=== PATIENT | male | born 1975 | race Caucasian/White ===

== ENCOUNTER 2016-12-01 16:43 | Inpatient (IN) ==
[2016-12-01] MEDS ORDERED: Nitroglycerin 0.4 MG TAB.SUBL SL ONE (16:52)
[2016-12-01] MEDS: Nitroglycerin 0.4 MG TAB.SUBL SL PRN ×3 (16:55→17:15)
--- NOTE | 2016-12-01 17:02 | Emergency Department Note ---
Disposition Clinical Impression: Chest pain Qualifiers: Chest pain type: unspecified Qualified Code(s): R07.9 - Chest pain, unspecified Disposition: Admitted As Inpatient Condition: Good Time of Disposition: 19:00 Chest Pain HPI - General Chief Complaint: ED Chest Pain Stated Complaint: chest pain Time Seen by Provider: 12/01/16 16:48 Source: patient, EMS Mode of arrival: EMS Limitations: no limitations Vital Signs Reviewed: Yes Nursing Notes Reviewed: Yes - History of Present Illness HPI Narrative: 41-year-old male history of pack per day smoker, hypertension presents to the ED via EMS for chest pain. Patient was seen and evaluated at urgent care after experiencing tight chest pain midsternum around 1545 while driving in a car from [place]. Reports diaphoresis and some indigestion denies any vomiting. Reports pain that seems to radiate up the neck down the left arm with tingling in the left hand. This recent stress test 5 years ago without abnormality after treadmill and then drug. He admits to noncompliance with his hypertensive medication. No family cardiac ischemic disease. Patient was given 324 mg aspirin at urgent care. He continues to have chest pain at this time. He is hypertensive with good bilateral radial pulses. Concerning for dissection CTA of the chess ordered. Chest pain workup initiated. Nitro trial ordered. Review for EKG performed at urgent care shows some T wave inversion and AVL. Severity scale (1-10): 6 - Related Data Home Medications Medication Instructions Recorded Confirmed Amlodipine Besylate 10 mg PO DAILY 12/01/16 12/01/16 Allergies Allergy/AdvReac Type Severity Reaction Status Date / Time No Known Allergies Allergy Verified 06/14/15 11:06 All systems ED: reviewed and negative except as stated. Review of Systems: As Per HPI Constitutional: Denies: fever, chills Eyes: Denies: vision change Cardiovascular: Reports: chest pain. Denies: palpitations, dyspnea on exertion Respiratory: Reports: dyspnea. Denies: cough Gastrointestinal: Denies: abdominal pain, nausea, vomiting Genitourinary: Denies: urgency, dysuria Musculoskeletal: Denies: back pain, neck pain Integumentary: Denies: rash, abrasion Neurological: Denies: headache, weakness Chest Pain PMH - Past Medical History Medical history: Reports: hypertension Psychiatric history: Reports: no psych history Prior Cardiac Testing/Procedures: Echocardiogram - Social History Smoking Status: Current every day smoker Alcohol use: Reports: none Drug use: Reports: none Physical Exam - General Limitations: no limitations General appearance: alert, in no apparent distress - Head Head exam: atraumatic, normocephalic, normal inspection - Eye Eye exam: Present: normal appearance, PERRL, EOMI - ENT ENT exam: normal exam, normal oropharynx, mucous membranes moist - Neck Neck exam: Present: normal inspection, full ROM, trachea midline - Chest Chest inspection: Present: normal inspection, symmetric chest wall rise. Absent : tenderness - Respiratory Respiratory exam: Present: normal lung sounds bilaterally. Absent: respiratory distress, wheezes - Cardiovascular Cardiovascular exam: Present: regular rate, normal rhythm, normal heart sounds - Expanded Cardiovascular Exam Peripheral pulses: 2+: radial (R), radial (L) - Abdominal Exam Abdominal exam: Present: soft, Non-Tender, normal bowel sounds. Absent: tenderness, distention, guarding, rebound, rigidity - Extremities Exam Extremities exam: Present: normal inspection, full ROM, normal capillary refill. Absent: tenderness, pedal edema, calf tenderness - Back Exam Back exam: Present: normal inspection, full ROM. Absent: tenderness - Neurological Exam Neurological exam: Present: alert, oriented X3, normal gait - Psychiatric Psychiatric exam: Present: normal affect, normal mood - Skin Skin exam: Present: warm, dry, intact, normal color Course - Reevaluation(s) Reevaluation #1: On initial EKG from urgent care showed isolated avL T wave inversion. At that time he was actively having chest pain. Patient was given Nitro trial with pain relief from 9 to 2. He was initially very hypertensive blood pressure greater than 200. On recheck it was 180. Good symmetrical radial pulses bilaterally. Concerning for aortic dissection. CTA of the chess was performed did not show dissection. Serial EKG does not show any dynamic changes. Troponin 0.01. Labs are otherwise unremarkable. Given his previous EKG changes would heavily recommend heart catheterization. HEART score of 4. Impression is chest pain rule out acute coronary syndrome. Patients in agreement with this plan. He is currently pain-free after Nitro drip. He is currently hemodynamically stable. Blood pressure has come down tremendously 135 /95. Time: 18:54 - Consultations Consultation #1: Spoke with on-call hospitalist natty Brock to admit for chest pain R/O ACS. Express my concern for ischemic changes in original EKG. Strongly recommended heart catheterization during his hospitalization here. No further orders at this time Time: 19:13 Vital Signs Temperature 97.7 F 12/01/16 16:44 Pulse Rate 74 12/01/16 16:44 Respiratory Rate 18 12/01/16 16:44 Blood Pressure 221/133 12/01/16 16:44 O2 Sat by Pulse Oximetry 97 12/01/16 16:44 Temperature 97.7 F 12/01/16 16:44 Pulse Rate 75 12/01/16 18:10 Respiratory Rate 18 12/01/16 18:10 Blood Pressure 135/93 12/01/16 18:10 O2 Sat by Pulse Oximetry 98 12/01/16 18:10 Oxygen Delivery Oxygen Delivery Room Air Chest Pain - Medical Records Medical records reviewed: Yes I reviewed the patient's medical records. - Lab Data Lab results reviewed: Yes I reviewed the patient's lab results. Result diagrams: 12/01/16 17:04 12/01/16 17:04 Lab Results 12/01/16 12/01/16 12/01/16 Range/Units 17:04 17:04 17:04 WBC 8.3 (4.3-11.1) K/mcL RBC 5.16 (4.19-5.50) M/mcL Hgb 15.3 (12.9-16.9) g/dL Hct 44.8 (37.5-50.1) % MCV 86.8 (83.0-100.0) fL MCH 29.7 (28.0-33.3) pg MCHC 34.2 (31.6-35.5) g/dL RDW 11.7 (11.5-14.5) % Plt Count 185 (140-400) K/mcL MPV 10.7 (9.4-12.4) fL Immature Gran % 0.4 (0-4) % Seg Neutrophils % 64.1 % Lymphocytes % 26.5 % Monocytes % 5.6 % Eosinophils % 2.8 % Basophils % 0.6 % Neutrophils # 5.3 (1.6-8.9) K/mcL Lymphocytes # 2.2 (0.6-4.6) K/mcL Monocytes # 0.5 (0.0-1.3) K/mcL Eosinophils # 0.2 (0.0-0.6) K/mcL Basophils # 0.1 (0.0-0.2) K/mcL Immature Plt Fraction 6.4 H (1.1-6.1) % Sodium 140 (136-145) mEq/L Potassium 3.2 L (3.5-4.5) mEq/L Chloride 104 (98-109) mEq/L Carbon Dioxide 27 (19-29) mEq/L BUN 9 (8-26) mg/dL Creatinine 0.98 (0.72-1.25) mg/dL Est GFR ( Amer) > 60 (> 60) Est GFR (Non-Af Amer) > 60 (> 60) BUN/Creatinine Ratio 9 (6-26) Glucose 101 H (70-99) mg/dL Calculated Osmolality 289 (280-300) Calcium 9.2 (8.6-10.8) mg/dL Troponin I 0.01 (0-0.03) ng/mL - Radiology Data Radiology results reviewed: Yes I reviewed the patient's radiology results. Chest CTA 12/01/16 16:58 IMPRESSION: 1. No evidence of thoracic or abdominal aortic aneurysm or dissection. 2. Chronic lung parenchymal changes, greatest within the right lower lobe, presumably secondary to remote infection or inflammation. 3. Small hiatal hernia. 4. Fatty liver infiltration. D/ / Charlie Delcid MD / Charlie Delcid MD Interpreting Provider: Charlie Delcid MD Abdomen/Pelvis CTA 12/01/16 17:06 IMPRESSION: 1. No evidence of thoracic or abdominal aortic aneurysm or dissection. 2. Chronic lung parenchymal changes, greatest within the right lower lobe, presumably secondary to remote infection or inflammation. 3. Small hiatal hernia. 4. Fatty liver infiltration. D/ / Charlie Delcid MD / Charlie Delcid MD Interpreting Provider: Charlie Delcid MD - EKG Data EKG attestation: Yes I reviewed and interpreted this EKG. EKG results narrative: EKG performed 1646 normal sinus rhythm 3 bpm, good R-R wave progression, normal axis, there are no ST elevations or depressions, no T-wave inversions. Intervals are within normal limits CT interval 158 QRS 108 QT QTC 385 425. Compared to old EKG performed 06/14/2015 shows consistent findings. No acute ischemic changes. Repeat cereal EKGs perform at 1725 and 1814 no dynamic changes, no ST elevations or T wave inversion. EKG performed at the urgent care shows sinus rhythm [address] elevation in inferior leads with isolated T wave inversion and ST depression in aVL. Heart Score - Score History: Moderately Suspicious EKG: Non Specific repolarisation Disturbance Age: Less than 45 Risk Factors: Equal/Greater than 3 risk factor or history of atherosclerotic disease Troponin: Less than normal limit HEART Score Total: 4 Attestation Statement - Attestation Attestation: I examined this patient and my medical decision-making was reviewed with the Resident Physician. I agree with the documented findings, disposition and treatment plan as described except to the extent set forth below. Sudden onset severe chest pain radiating to his back and jaw with associated diaphoresis, no history of similar. EKG at urgent care was concerning, with borderline inferior ST elevations and ST depression and T-wave inversion in aVL. On arrival here, EKG had normalized, his pain had decreased from a 9 to a 5 on a 10 scale. Serial EKGs remained normal, pain gradually decreased with sublingual nitroglycerin followed by intravenous nitroglycerin, currently pain- free at 40 mics per minute. Troponin 0.01, CT was done to rule out dissection given his sudden severe pain radiating to the back associated with diaphoresis and severe hypertension, this was negative as well. My suspicion for ischemia is high. Admission for cardiac evaluation and consideration of cardiac catheterization is warranted. Critical care time: I was directly and primarily involved in the care of this patient for 35 minutes excluding procedures.
[2016-12-01 17:09] LABS: Basophils # 0.1 K/mcL (0.0-0.2); Basophils % 0.6 %; Eosinophils # 0.2 K/mcL (0.0-0.6); Eosinophils % 2.8 %; Hematocrit 44.8 % (37.5-50.1); Hemoglobin 15.3 g/dL (12.9-16.9); Immature Granulocytes % 0.4 % (0-4); Immature Platelets 6.4 % (1.1-6.1); Lymphocytes # 2.2 K/mcL (0.6-4.6); Lymphocytes % 26.5 %; Mean Corpuscular HGB Conc 34.2 g/dL (31.6-35.5); Mean Corpuscular Hemoglobin 29.7 pg (28.0-33.3); Mean Corpuscular Volume 86.8 fL (83.0-100.0); Mean Platelet Volume 10.7 fL (9.4-12.4); Monocytes # 0.5 K/mcL (0.0-1.3); Monocytes % 5.6 %; Neutrophils # 5.3 K/mcL (1.6-8.9); Platelet Count 185 K/mcL (140-400); Red Blood Count 5.16 M/mcL (4.19-5.50); Red Cell Distribution Width 11.7 % (11.5-14.5); Segmented Neutrophils % 64.1 %
[2016-12-01 17:24] LABS: BUN/Creatinine Ratio 9 (6-26); Blood Urea Nitrogen 9 mg/dL (8-26); Calcium 9.2 mg/dL (8.6-10.8); Carbon Dioxide 27 mEq/L (19-29); Chloride 104 mEq/L (98-109); Glucose 101 mg/dL (70-99); Osmolality,Calculated 289 (280-300); Potassium 3.2 mEq/L (3.5-4.5); Sodium 140 mEq/L (136-145); eGFR For African Americans > 60 (> 60); eGFR For Non-African Americans > 60 (> 60)
[2016-12-01] MEDS ORDERED: Nitroglycerin 25 MG/250 ML INFUS..BTL IVC ONE (17:41)
[2016-12-01] MEDS ORDERED: Naloxone 0.4 MG/ML INJ IVP PRN (21:08)
[2016-12-01] MEDS ORDERED: *HR* Heparin 5,000 UNIT/ML VIAL IVP PRN ×2 (23:45)
[2016-12-01] MEDS ORDERED: Heparin 25,000 UNIT/500 ML D5W 25,000 UNIT/500 ML MLS IVC SCH (23:45)
[2016-12-01] MEDS ORDERED: *HR* Heparin 5,000 UNIT/ML VIAL IVP ONE (23:45)
--- NOTE | 2016-12-01 23:49 | Emergency Department Note ---
START Narrative - START START: In the process of the patient name is the hospital his troponin became elevated at 0.83. I contacted the hospitalist Dr. murphy. We reviewed the presentation symptoms and nitroglycerin drip titration and is been going on over the last hour and a half. He asked if we could contact the forest resource specialist to make sure they are comfortable with admission and whether or not they wanted a heparin drip started this point. Consultation was placed out to Dr. sanchez. We reviewed the presentation symptoms medical history as well as intervention performed. Recommendation was heparinizing the patient and admitting for serial exam and then possibly catheterization tomorrow. I want to discuss this with the patient the bedside. He is still 100% chest pain-free at this time. He has no other symptoms or issues noted. Heparin order for the for completed. I informed hospitalist of my conversation with the forest resource specialist. Otherwise the patient is in no distress. Chest x-ray reviewed showing no widening of the mediastinum. Patient has not had any dark melenic colored stool no concern for GI bleed.
--- NOTE | 2016-12-02 00:03 | Internal Med History&Physical ---
<Ranjan Alejandre - Last Filed: 12/01/16 23:58> Date of Encounter: 12/01/16 Time of Encounter: 11:00 Assessment and Plan (1) Chest pain Current visit: Yes Status: Acute New onset of chest pain this afternoon radiating to bilateral shoulders left arm and neck and diaphoresis Hypertensive upon arrival to ED. Was given sublingual nitroglycerin and 4 baby aspirin. EKG in the ED and sinus rhythm. Troponin at time of admission was 0.01. Last stress test was 5 years ago without abnormality. She admits to being noncompliant with new hypertensive medications. I will continue to trend troponins as second troponin resulted in increase at 0.83. Placed on continuous telemetry Placed on oxygen 2 L titrated to maintain SPO2 greater than 92% Continuous SPO2 monitoring CBC, lipids and CMP in the morning nothing by mouth after midnight no caffeine or beta blockers Echo scheduled tomorrow Exercise stress scheduled tomorrow Patient started on heparin drip and titrate based on results of PTT Insert resuming nitro drip if patient develops active chest pain Additional hypokalemic and given 40 meq of potassium one time dose Qualifiers: Chest pain type: unspecified Qualified Code(s): R07.9 - Chest pain, unspecified (2) HTN (hypertension) Current visit: Yes Status: Acute Hypertensive on arrival in the ED as well as chest pain. Patient placed on nitro drip. Hemodynamically stable and chest pain subsided. Continue to monitor hemodynamic status and resume home norvasc medication tomorrow Qualifiers: Hypertension type: essential hypertension Qualified Code(s): I10 - Essential (primary) hypertension (3) DVT prophylaxis Current visit: Yes Status: Acute Patient on heparin drip Internal Medicine - H&P: HPI Chief complaint: Midsternal Chest pain Admitted From: Home Plans for Post Hospital Care: Home History of present illness: Mr. Mcintyre is a 41 year old male with family past medical history being hypertension. Presented to [facility] on 12-01-16 with chest pain rule out ND. Information obtained from chart review and patient report. He reports driving home from work and suddenly experiencing burning midsternal chest pain radiating to both shoulders down left arm to left hand and off throughout his neck admits to diaphoresis and palpitations. 2 himself to urgent care. The urgent care team obtained an EKG which showed sinus rhythm. However he was instructed to come to [facility] emergency department for further workup. Upon arrival to [facility] the patient received 1 sublingual nitroglycerin and 4 baby aspirin. Pain at time of arrival 5-6 health scale of 1-10. Pain at time of exam reported as 0. Patient comfortable and in no distress. Troponins in the ED initially was negative at 0.01. Patient is obese, sedentary, and has a smoking history. He is being admitted at this time for further workup and evaluation. Past Med Surg Social Fam HX - Past Medical History Medical history: hypertension Psychiatric history: no psych history - Social History Smoking Status: Current every day smoker Smokeless Tobacco Status: No Alcohol use: none Drug use: none Internal Medicine - H&P: Meds Amlodipine Besylate 10 mg PO DAILY 12/01/16 [History] Allergies No Known Allergies Allergy (Verified 06/14/15 11:06) All Systems PM: A 10-system review of systems was performed and is negative for pertinent findings except as documented above in the HPI. - Constitutional Constitutional: no chills, no fever(s), no night sweats - EENT Eyes: no change in vision, no discharge, no pain, no photophobia Ears: no ear discharge, no ear pain, no tinnitus Nose, mouth and throat: no dysphagia, no nasal discharge, no neck pain, no sore throat - Cardiovascular Cardiovascular ROS IM: chest pain (Re: Radiating chest pain bilateral shoulders left arm and neck), diaphoresis, no dyspnea, no edema, no irregular heart rhythm , no lightheadedness, no palpitations, no syncope - Respiratory Respiratory: no cough, no dyspnea, no wheezing, no excessive phlegm production - Gastrointestinal Gastrointestinal: no abdominal pain, no diarrhea, no hematemesis, no hematochezia, no melena, no nausea, no vomiting - Musculoskeletal Musculoskeletal ROS IM: no numbness, no tingling - Integumentary Integumentary IM: no rash, no unusual bruising - Neurological Neurological ROS: no confusion, no convulsions, no dizziness, no focal weakness , no numbness, no tingling, no tremor(s) - Hematologic/Lymphatic Hematologic/Lymphatic: no easy bruising - Constitutional Vitals: Temp Pulse Resp BP Pulse Ox 97.7 F 70 18 132/90 98 12/01/16 16:44 12/01/16 22:52 12/01/16 23:42 12/01/16 23:42 12/01/16 22:52 General appearance: Present: A&O X 3, pleasant, no acute distress, obese, answers questions appropriately - Head Head exam: Present: atraumatic, normocephalic - Eye Eye exam: Present: PERRL, conjuntiva pink, sclera anicteric Pupils: Present: PERRL - Neck Neck exam general surgery: Present: supple, trachea midline. Absent: lymphadenopathy - Respiratory Respiratory exam: Present: CTAB. Absent: accessory muscle use, rales, rhonchi, wheezes - Cardiovascular Cardiovascular exam: Present: RRR, +S1, +S2. Absent: diastolic murmur, gallop, rubs, systolic murmur - GI/Abdominal GI/Abdominal exam: Present: normal bowel sounds, soft, no peritoneal signs. Absent: distended, tenderness - Extremities Exam Extremities exam: Present: warm, radial pulses palpable and symmetrical. Absent : calf tenderness, cyanotic, pedal edema - Neurological Exam Neurological exam: Present: CN II-XII intact, oriented X3, no focal deficits. Absent: pronater drift, facial droop, speech deficit - Skin Skin exam: Present: dry, intact. Absent: cyanosis, diaphoretic Internal Med - H&P Results - Labs CBC & Chem 7: 12/01/16 17:04 12/01/16 17:04 Labs: Cardiac Enzymes 12/01/16 Range/Units 22:39 Troponin I 0.83 H* (0-0.03) ng/mL - EKG Data EKG shows normal: sinus rhythm (Initial EKG indicated sinus rhythm) Rate: normal - Diagnostic Studies CT scan - chest Additional comments: CT abdomen and pelvis rule out dissection. CT found no evidence of abdominal or thoracic dissection. <Jt Duggan - Last Filed: 12/02/16 03:51> Date of Encounter: 12/02/16 Internal Medicine - H&P: HPI History of present illness: Mr. Mcintyre is a 41 year old male All Systems PM: A 10-system review of systems was performed and is negative for pertinent findings except as documented above in the HPI. - Constitutional Vitals: Temp Pulse Resp BP Pulse Ox 97.7 F 63 16 143/99 95 12/02/16 00:19 12/02/16 00:50 12/02/16 00:19 12/02/16 00:50 12/02/16 00:19 Internal Med - H&P Results - Labs CBC & Chem 7: 12/02/16 00:36 12/01/16 17:04 Labs: Short CBC 12/02/16 Range/Units 00:36 WBC 8.8 (4.3-11.1) K/mcL Hgb 14.5 (12.9-16.9) g/dL Hct 41.6 (37.5-50.1) % Plt Count 171 (140-400) K/mcL Cardiac Enzymes 12/01/16 Range/Units 22:39 Troponin I 0.83 H* (0-0.03) ng/mL - Attending Attestation I independently obtained history and examined this patient and my medical decision-making was reviewed with the nurse practitioner, Ranjan Alejandre. I agree with the documented findings, disposition and treatment plan as described. My findings are summarized below: Please see event note dictated for the date of service 12/01/2016
--- NOTE | 2016-12-02 00:08 | Event Note ---
Date of Encounter: 12/01/16 Time of Encounter: 22:00 Date of service for this encounter was 12/01/2016 I independently obtained history and examined this patient and my medical decision-making was reviewed with the nurse practitioner, Ranjan Alejandre. I agree with the documented findings, disposition and treatment plan as described. My findings are summarized below: Patient presented to the hospital with sudden onset substernal chest pain at rest, while driving. His chest pain lasted for over 15 minutes and was eventually resolved with sublingual nitroglycerin. Pain recurred thereafter and he was started on nitro drip and currently is chest pain-free. On exam he is in no acute distress, heart is regular with normal S1-S2, lungs are clear. EKG reveals normal sinus rhythm [address] or T-wave changes, personally reviewed Assessment: Typical chest pain secondary to unstable angina Versus NSTEMI. Plan: Transient troponin, patient received aspirin, start beta annmarie and statin, consult cardiology. I have initially ordered a stress test however troponin came back positive and he ruled in and therefore will discontinue the stress test and plan for cardiac catheterization in a.m. High risk due to acute VT and IV nitro drip requiring close vital sign monitoring.
[2016-12-02 00:57] LABS: Hematocrit 41.6 % (37.5-50.1); Hemoglobin 14.5 g/dL (12.9-16.9); Immature Platelets 6.2 % (1.1-6.1); Mean Corpuscular HGB Conc 34.9 g/dL (31.6-35.5); Mean Corpuscular Hemoglobin 30.6 pg (28.0-33.3); Mean Corpuscular Volume 87.8 fL (83.0-100.0); Mean Platelet Volume 11.4 fL (9.4-12.4); Red Blood Count 4.74 M/mcL (4.19-5.50); Red Cell Distribution Width 11.9 % (11.5-14.5)
[2016-12-02 01:02] LABS: INR 1.1; Prothrombin Time 12.3 Seconds (9.4-12.1)
[2016-12-02 01:04] LABS: Activated Partial Thrombo Time 27.3 Seconds (26.0-36.0)
--- NOTE | 2016-12-02 04:03 | Event Note ---
Date of Encounter: 12/02/16 Time of Encounter: 23:00 Patient continued to have chest pain and his troponin increased to 0.89. At this point these findings are consistent with acute non-ST elevation SC. We will continue with nitroglycerin drip, start heparin drip. The patient requires inpatient admission for more than 2 midnights. Risk if not hospitalized include cardiogenic shock and further morbidity as well as chronic heart failure.
[2016-12-02 05:35] LABS: Amphetamine Screen,Urine Negative ng/mL (Cutoff=1000); Barbiturate Screen,Urine Negative ng/mL (Cutoff=200); Benzodiazepines Screen,Urine Negative ng/mL (Cutoff=200); Cannabinoid Screen,Urine Negative ng/mL (Cutoff = 50); Cocaine Screen,Urine Negative ng/mL (Cutoff= 300); Opiate Screen,Urine Negative ng/mL (Cutoff=300); Phencyclidine Screen,Urine Negative ng/mL (Cutoff=25)
[2016-12-02] MEDS ORDERED: *HR* Enoxaparin 40 MG/0.4 ML SYRINGE SQ SCH (06:00)
[2016-12-02 06:02] LABS: Basophils # 0.1 K/mcL (0.0-0.2); Basophils % 0.6 %; Eosinophils # 0.2 K/mcL (0.0-0.6); Eosinophils % 2.5 %; Hematocrit 41.2 % (37.5-50.1); Hemoglobin 14.2 g/dL (12.9-16.9); Immature Granulocytes % 0.3 % (0-4); Lymphocytes # 2.5 K/mcL (0.6-4.6); Lymphocytes % 27.8 %; Mean Corpuscular HGB Conc 34.5 g/dL (31.6-35.5); Mean Corpuscular Hemoglobin 30.5 pg (28.0-33.3); Mean Corpuscular Volume 88.4 fL (83.0-100.0); Mean Platelet Volume 11.3 fL (9.4-12.4); Monocytes # 0.7 K/mcL (0.0-1.3); Neutrophils # 5.4 K/mcL (1.6-8.9); Platelet Count 160 K/mcL (140-400); Red Blood Count 4.66 M/mcL (4.19-5.50); Red Cell Distribution Width 11.9 % (11.5-14.5); Segmented Neutrophils % 60.8 %
[2016-12-02 06:25] LABS: Alanine Aminotransferase 54 Units/L (0-55); Albumin 3.5 g/dL (3.5-5.0); Alkaline Phosphatase 65 Units/L (38-126); Aspartate Amino Transferase 36 Units/L (5-34); BUN/Creatinine Ratio 14 (6-26); Blood Urea Nitrogen 12 mg/dL (8-26); Calcium 9.1 mg/dL (8.6-10.8); Carbon Dioxide 27 mEq/L (19-29); Chloride 107 mEq/L (98-109); Chol/HDL Ratio 7.6 (0-4.9); Cholesterol 205 mg/dL (< 200); Globulin 3.4 g/dL (2.4-3.5); Glucose 96 mg/dL (70-99); HDL Cholesterol 27 mg/dL (40-59); LDL Cholesterol,Calculated 153 mg/dL (0-99); Magnesium 1.9 mg/dL (1.6-2.6); Osmolality,Calculated 290 (280-300); Potassium 3.7 mEq/L (3.5-4.5); Sodium 140 mEq/L (136-145); Total Protein 6.9 g/dL (6.0-8.3); Triglycerides 127 mg/dL (< 150); eGFR For African Americans > 60 (> 60); eGFR For Non-African Americans > 60 (> 60)
--- NOTE | 2016-12-02 08:41 | Cardiology Consult Note ---
<Cira Coppola - Last Filed: 12/02/16 08:46> Date of Encounter: 12/02/16 Time of Encounter: 08:00 Assessment and Plan (1) NSTEMI (non-ST elevated myocardial infarction) Current Visit: Yes Status: Acute Troponin peak 0.83 with ischemic ECG changes, now resolved. Presented with typical chest pain symptoms. Heparin gtt, asa load given in ED. He is pain free upon exam. Risk factors for CAD include: HTN, tobacco use, HLD, obesity, and paternal family hx. Recommend LHC with possible PCI; alternatives, risks, and benefits discussed; he is agreeable to proceed. Echo pending. Continue heparin gtt, asa, statin, and betablocker. Will consult cardiac rehab. (2) HLD (hyperlipidemia) Current Visit: Yes Status: Chronic Start statin. Lifestyle modifications, risk factor reduction. Qualifiers: Hyperlipidemia type: mixed hyperlipidemia Qualified Code(s): E78.2 - Mixed hyperlipidemia (3) HTN (hypertension) Current Visit: Yes Status: Chronic Severely elevated upon arrival, 221/133. Now controlled. Counseled on the importance of mediation compliance. Qualifiers: Hypertension type: essential hypertension Qualified Code(s): I10 - Essential (primary) hypertension (4) Tobacco abuse Current Visit: Yes Status: Acute Smoking cessation counseling provided, interested in Chantix. Discussion w patient/family: The assessment and plan as outlined above was discussed with the patient and/or family members who expressed understanding and agreement. All questions were answered. Thank you for involving us in the care of your patient. Please call with any questions. The patient will be discussed and reviewed with Dr. Atkinson; changes to be made accordingly. History of Present Illness Consult date: 12/02/16 Requesting physician: Jt Duggan Consult reason: NSTEMI Chief complaint: Chest pain History of present illness: Mr. Mcintyre is a 41 year old male with PMHx significant for HTN, obesity, and tobacco use who presented to the ED yesterday after experiencing sudden onset mid-sternal chest discomfort while driving home. He describes chest pain as burning with radiation to bilateral arms, jaw, and neck. Associated symptoms include shortness of breath. He notes unhealthy lifestyle due to work. Reports pain improved after NTG administration in the ED. Upon arrival to ED, inferior ECG changes noted; resolved after repeat ECG. He was started on Heparin gtt in ED. He is chest pain free upon exam. Past Med Surg Social Fam HX - Past Medical History Attestation: Yes The following information was validated with the patient. Source: patient Medical history: GERD, hyperlipidemia, hypertension Psychiatric history: no psych history - Past Surgical History Surgical History: appendectomy - Social History Smoking Status: Current every day smoker Packs per day: 3/4 Smokeless Tobacco Status: No Alcohol use: none Drug use: none - Family History Father Living Status: Still Living Hx Family Cardiac Disorders: Yes (NE/stents) Hx Family Endocrine Disorder: Yes (DM) Mother Hx Family Cancer: Yes Medications and Allergies Amlodipine Besylate 10 mg PO DAILY 12/01/16 [History] Allergies No Known Allergies Allergy (Verified 06/14/15 11:06) All Systems Review: A 10-system review of systems was performed and is negative for pertinent findings except as documented above in the HPI. - Cardiovascular Cardiovascular: as per HPI Physical Examination Vital Signs, Last 4 Hours Temp Pulse Resp BP Pulse Ox 12/02/16 07:26 97.6 F 70 16 130/77 98 12/02/16 05:18 97.7 F 71 18 129/70 96 General: Conversant, No Apparent Distress, Other (obese) HEENT: Atraumatic, Normocephaly, Mucus Membranes Moist Neck: No JVD, Normal carotid pulses Cardiac: Reg Rate and Rhythm, Normal S1 and S2, No Murmur Lungs: Normal Breath Sounds, No Wheeze, Rales, Rhonchi Neuro: Alert and responsive, No focal deficits noted Abdomen: Soft, Non-Tender Skin: No rashes noted on visualized skin Musculoskeletal: No Chest Wall Tenderness Extremities: No Clubbing, No Cyanosis, No Edema, Normal Pulses Results 12/02/16 04:58 12/02/16 04:58 Lab Results 12/02/16 12/02/16 12/02/16 04:58 04:58 04:58 WBC 8.9 Hgb 14.2 Hct 41.2 Plt Count 160 Sodium 140 Potassium 3.7 Chloride 107 Carbon Dioxide 27 BUN 12 Creatinine 0.85 Glucose 96 Calcium 9.1 Magnesium 1.9 Total Bilirubin 1.0 AST 36 H ALT 54 Alkaline Phosphatase 65 Troponin I 0.78 H* Active Medications Amlodipine Besylate (Norvasc) 10 mg PO DAILY MERYL Stop: 06/03/17 09:01 Last Admin: 12/02/16 08:47 Dose: Not Given Aspirin (Aspirin Ec) 81 mg PO DAILY MERYL Stop: 06/03/17 09:01 Atorvastatin Calcium (Lipitor) 40 mg PO HS MERYL Stop: 06/03/17 21:01 Heparin Sodium (Porcine) (Heparin) 4,000 unit IVP Q6HR PRN PRN Reason: SEE COMMENTS Stop: 06/02/17 23:46 Heparin Sodium (Porcine) (Heparin) 2,000 unit IVP Q6H PRN PRN Reason: SEE COMMENTS Stop: 06/02/17 23:46 Heparin Sodium/Dextrose (Heparin 25,000 Unit/500 Ml D5w) 25,000 unit in 500 mls @ 20.072 mls/hr IVC .Q24H MERYL; 7.5 UNIT/KG/HR PRN Reason: Protocol Stop: 06/02/17 23:46 Last Admin: 12/02/16 01:26 Dose: 7.5 unit/kg/hr, 20.072 mls/hr Metoprolol Tartrate (Lopressor) 12.5 mg PO BID [facility] Stop: 06/03/17 09:01 Naloxone HCl (Narcan) 0.4 mg IVP Q2MIN PRN PRN Reason: Opioid Reversal Stop: 06/02/17 21:09 Nitroglycerin (Nitroglycerin) 0.4 mg SL Q5MIN PRN PRN Reason: Chest Pain Stop: 06/02/17 16:59 Last Admin: 12/01/16 17:15 Dose: 0.4 mg - Imaging and Cardiology Echo: pending Other Results: 12 hour tele: avg HR=69. 5 beat run NSVT - EKG Interpretation EKG results cardiology: personally reviewed Consult Discharge Plan - Plan Referrals: Delbert Foreman DO [Primary Care Provider] - <Jess Atkinson - Last Filed: 12/02/16 10:19> Date of Encounter: 12/02/16 Assessment and Plan Discussion w patient/family: The assessment and plan as outlined above was discussed with the patient and/or family members who expressed understanding and agreement. All questions were answered. Thank you for involving us in the care of your patient. Please call with any questions. History of Present Illness History of present illness: Mr. Mcintyre is a 41 year old male All Systems Review: A 10-system review of systems was performed and is negative for pertinent findings except as documented above in the HPI. Physical Examination Vital Signs, Last 4 Hours Temp Pulse Resp BP Pulse Ox 12/02/16 07:26 97.6 F 70 16 130/77 98 Results 12/02/16 04:58 12/02/16 04:58 Lab Results 12/02/16 12/02/16 12/02/16 04:58 04:58 04:58 WBC 8.9 Hgb 14.2 Hct 41.2 Plt Count 160 APTT Sodium 140 Potassium 3.7 Chloride 107 Carbon Dioxide 27 BUN 12 Creatinine 0.85 Glucose 96 Calcium 9.1 Magnesium 1.9 Total Bilirubin 1.0 AST 36 H ALT 54 Alkaline Phosphatase 65 Troponin I 0.78 H* 12/02/16 08:02 WBC Hgb Hct Plt Count APTT 37.8 H Sodium Potassium Chloride Carbon Dioxide BUN Creatinine Glucose Calcium Magnesium Total Bilirubin AST ALT Alkaline Phosphatase Troponin I - Attending Attestation I examined this patient and my medical decision-making was reviewed with the Resident Physician. I agree with the documented findings, disposition and treatment plan. Mr. Mcintyre presents with NSTEMI - ECG changes and elevated troponin along with complaints of chest pain. Risk factors include HTN, untreated dyslipidemia, obesity, smoking and male gender. Recommend proceeding with [facility]. The R/B/A of the procedure were discussed with the patient. He expressed understanding and verbalized agreement to proceed. He denied any upcoming elective procedures or history of bleeding. Renal function is normal.
[2016-12-02] MEDS: amLODIPine 5 MG TABLET PO SCH (08:47)
[2016-12-02] MEDS ORDERED: Verapamil 5 MG/2 ML VIAL ONE (09:11)
[2016-12-02] MEDS ORDERED: 0.9 % Sodium Chloride 1,000 ML ONE ×2 (09:12→09:44)
[2016-12-02] MEDS: Aspirin Enteric Coated 81 MG Tablet PO SCH (09:12)
[2016-12-02] MEDS ORDERED: Nitroglycerin 1,000 MCG/10 ML VIAL IV ONE (09:12)
[2016-12-02] MEDS ORDERED: Heparin 1,000 UNITS/500 mL NS 500 ML ONE (09:12)
[2016-12-02] MEDS ORDERED: *HR* Heparin 10,000 UNIT/10 ML VIAL ONE ×2 (09:12→09:13)
[2016-12-02] MEDS ORDERED: *HR* FentaNYL (PF) 100 MCG/2 ML VIAL ONE (09:30)
[2016-12-02] MEDS ORDERED: *HR* Midazolam HCl 5 MG/5 ML VIAL IVP ONE (09:31)
--- NOTE | 2016-12-02 09:44 | Pre-Sedation Evaluation ---
Pre-sedation evaluation - Pre-sedation checklist Date of procedure: 12/02/16 Procedure: heart cath Recent Vitals: Last Vital Signs Temp 97.6 F 12/02/16 07:26 Pulse 70 12/02/16 07:26 Resp 16 12/02/16 07:26 BP 130/77 12/02/16 07:26 Pulse Ox 98 12/02/16 07:26 H&P (including ROS) documented in medical record: Yes Previous reaction to sedatives/anesthetics: Yes; explain in comment Dietary Status: NPO after Midnight Dentition: poor dentition ASA Classification *see protocol: CLASS II-Mild systemic disease Plan of Care: Pt appropriate candidate for procedure/moderate/conscious sedation , Risks/benefits of procedure/sedation discussed w/ patient/family
[2016-12-02] MEDS ORDERED: Tirofiban 12.5 MG/250ML 12.5 MG/250 ML BAG ONE (10:28)
[2016-12-02] MEDS ORDERED: *HR* Metoprolol 5 MG/5 ML VIAL IVP ONE (11:07)
[2016-12-02] MEDS ORDERED: *HR* HYDROcodone/Acet 5/325 mg TABLET PO PRN (11:26)
[2016-12-02] MEDS ORDERED: Acetaminophen 325 MG TABLET PO PRN (11:26)
[2016-12-02] MEDS ORDERED: *HR* OxyCODONE/APAP 5/325 TABLET PO PRN (11:26)
[2016-12-02] MEDS ORDERED: Ondansetron 4 MG/2 ML VIAL IVP PRN (11:27)
[2016-12-02] MEDS ORDERED: *HR* Ticagrelor 90 MG TABLET ONE (11:29)
[2016-12-02] MEDS ORDERED: Tirofiban 12.5 MG/250ML 12.5 MG/250 ML BAG IVC SCH (11:30)
--- NOTE | 2016-12-02 11:43 | Invasive Diagnostic Lab Proc ---
Name: Jeff Mcintyre Date of Study: 12/02/2016 Date: 1975 Ht: 70.1in Medical Record#: [id number] Age: 41 Wt: 292.77lb Gender: Male BSA: 2.46 Order #: [id number] BMI: 41.91 Physicians Procedure Physician: Charan Mijares MD, [facility] Referring MD: Referring MD: Staff Name Position Time In Maicol Harris RN Texturing Machine Fixer 09:48 AM Rashmi Roe RN Monitor 09:48 AM Slime Connell RT (R) Scrub 09:48 AM Indications Indication Non-Stemi Procedures Performed Procedure L HRT ARTERY/VENTRICLE ANGIO PRQ CARD GUZMAN STENT W/ANGIO 1 VSL PRQ CARD GUZMAN STENT W/ANGIO 1 VSL Pre-Procedure Checklist Informed consent is complete signed and on chart. H&P is on chart. ID band is on and ID verified with patient. Patient NPO for procedure The procedure was described for the patient and questions were answered. Blood Pressure: 130/77 ECG is on chart. Rhythm: NSR Plan of Care Patient will tolerate the procedure without complications. Adequate level of comfort will be maintained. Hemodynamics will remain stable Patient will recover from procedure without complications. Respiratory function will be maintained. Cardiac rhythm will remain stable. Patient temperature will be maintained. Patient and/or family have verbalized understanding of the procedure. Patient Education Chief Complaint/Reason for Test: Cardiac Cath Developmental Category: Adult (18-64 years) Developmentally Appropriate for Age: Yes Learning Barriers: None Education Needs: Procedure Education Method: Verbal Information Taught: Cardiac Cath Educational Evaluation: Able to repeat information Intravenous Access Time IV Size Location DC'd Fluid/Drip Rate Units RN 09:25 AM 20g 1 1/" Patent On Arrival Rt Antecubital 0.9NaCl 25 ml/hr Maicol Harris RN Allergies NKDA Vital Signs Time BP (mmHg) HR (bpm) O2 Sat. RR (bpm) LOC 09:26 AM 130 / 77 70 98 % 16 5 = Fully awake and oriented or at pre-proc level 09:49 AM / % 5 = Fully awake and oriented or at pre-proc level 09:49 AM / % 5 = Fully awake and oriented or at pre-proc level 10:04 AM / % 4 = Oriented but drowsy 10:19 AM / % 4 = Oriented but drowsy 10:34 AM / % 4 = Oriented but drowsy 10:50 AM / % 4 = Oriented but drowsy 11:05 AM / % 5 = Fully awake and oriented or at pre-proc level 10:23 AM 173 / 99 73 97 % 13 10:28 AM 176 / 96 66 99 % 16 10:33 AM 179 / 112 66 100 % 19 10:38 AM 190 / 114 64 100 % 15 10:43 AM 188 / 119 78 98 % 17 10:48 AM 185 / 118 85 99 % 13 10:53 AM 194 / 118 94 98 % 14 10:58 AM 194 / 124 89 99 % 15 11:03 AM 202 / 114 91 99 % 22 11:08 AM 204 / 121 91 99 % 22 09:48 AM 190 / 109 66 98 % 11 09:53 AM 181 / 113 68 100 % 8 09:58 AM 157 / 110 67 97 % 12 10:03 AM 164 / 110 72 100 % 24 10:08 AM 153 / 99 81 92 % 14 10:13 AM 166 / 96 80 97 % 13 10:18 AM 176 / 107 82 98 % 13 11:13 AM 200 / 120 83 97 % 13 11:18 AM 199 / 124 85 97 % 16 11:23 AM 189 / 116 86 97 % 14 Procedural Medications Time Medication Dose Units Method Given By 09:49 AM Oxygen 2 L/min nasal cannula Maicol Harris RN 09:49 AM Versed 2 mg Intravenous HenthornMaicol gamboa RN 09:49 AM Fentanyl 50 mcg Intravenous Maicol Harris RN 10:01 AM Lidocaine 2% 0.5 ml Subcutaneous Charan Mijares MD, FACC 10:02 AM Versed 2 mg Intravenous AbenaornMaicol gamboa RN 10:02 AM Fentanyl 25 mcg Intravenous AbenaornMaicol gamboa RN 10:04 AM Heparin 2000 units Nitroglycerin 200 mcg Verapamil 2.5 mg Intraarterial Charan Mijares MD, FACC 10:28 AM Lidocaine 2% 19 ml Subcutaneous Charan Mijares MD, FACC 10:35 AM Heparin 4000 units Intravenous Maicol Harris RN 10:38 AM Aggrastat Bolus: 66.5 ml Intravenous Maicol Harris RN 10:39 AM Aggrastat 12.5mg/250ml 24 ml Intravenous Maicol Harris RN 10:43 AM Hydralazine 20 mg Intravenous Maicol Harris RN 11:05 AM Heparin 3000 units Intravenous Nelsonthkelly, aMicol LAZO 11:07 AM Lopressor 5 mg Intravenous Henthorncooper, Maicol LAZO 11:09 AM Versed 1 mg Intravenous Henthorncooper, Maicol LAZO 11:09 AM Fentanyl 25 mcg Intravenous Henthorncooper, Maicol LAZO 11:26 AM Brilinta 180 mg Orally Maicol Harris RN ASA Classification: CLASS II- Mild systemic disease (i.e. well-controlled diabetes, hypertension, asthma, cigarette smoking) Gladys Score Preprocedure Postprocedure Activity 2- Moves 4 extremities sustained head lift Activity 2- Moves 4 extremities sustained head lift Circulation 2- SBP +/= 20 points of pre-anesthetic level Circulation 2- SBP +/= 20 points of pre-anesthetic level Consciousness 2- Awake and alert oriented x 3 Consciousness 2- Awake and alert oriented x 3 O2 Saturation 2- Able to maintain O2 satruation of 92% on room air O2 Saturation 2- Able to maintain O2 satruation of 92% on room air Respiratory 2- Able to deep breathe and cough well Respiratory 2- Able to deep breathe and cough well Total Score 10 Total Score 10 Contrast Agent: Isovue Diagnostic Contrast: 257 ml Total Contrast: 257 ml Fluoro Dose: 2174 mGy Activated Clotting Time Time Seconds to Clot 10:35 AM 160 11:04 AM 204 Procedure Log Time Note Enter By 09:47 AM Pt arrived to lab support technician 2 at 09:47 [facility] 09:47 AM Physician arrived 09:47 [facility] 09:47 AM ASA Class CLASS II- Mild systemic disease (i.e. well-controlled diabetes, hypertension, asthma, cigarette smoking) [facility] 09:47 AM Damian completed [facility] 09:47 AM Sign in performed according to hospital policy. [facility] 09:47 AM Procedure start 09:47 [facility] 09:47 AM Vitals capture started with the following parameters, Patient=Adult, Interval=5 min, Initial Spknrlpc=389 mmHg, Deflation Rate=5 mmHg, Cuff placed on Left Arm 09:47 AM CathStat 09:48 AM Maicol Harris RN Position: Texturing Machine Fixer [facility] AM Rashmi Roe RN Position: Monitor Time in: 09:48 [facility] 09:48 AM Slime Connell RT (R) Position: Scrub Time in: 09:48 [facility] 09:48 AM Patient charges- Angio tray pack, Navilyst 3mm J, Pulse Oximetry and ACIST tubing and transducer [facility] 09:48 AM Case Delayed No [facility] 09:48 AM Hair removed from procedure site in procedure lab using clippers. Right groin prepped with Chloraprep by Maicol Harris RN, safety strap applied then patient was draped. Skin intact. [facility] 09:48 AM Hair removed from procedure site in procedure lab using clippers. Right wrist prepped with Chloraprep by Slime Connell (R), safety strap applied then patient was draped. Skin intact. [facility] 09:48 AM HR=66 bpm, TXUA=851/109 mmhg, SpO2=98.0 %, Resp=11 B/min, Comment=NSR 09:49 AM Time: 09:49 Oxygen on at 2 L/min per nasal cannula [facility] 09[facility] AM Time: 09:49 Versed 2 mg Intravenous Given [facility] 09:[facility] AM Time: 09:49 Fentanyl 50 mcg Intravenous Given by Maicol Harris [facility] 09:[facility] AM Time: 09:49 Patient comfortable and pain free: Yes [facility] 09:49 AM Time: 09:49LOC: 5 = Fully awake and oriented or at pre-proc level [facility] 09:49 AM Clinical Presentation: Non-STEMI [facility] 09:53 AM HR=68 bpm, JUMO=648/113 mmhg, XaR8=816.0 %, Resp=8 B/min, Comment=NSR 09:54 AM Pressure channel 1 zeroed. 09:58 AM HR=67 bpm, TFKI=094/110 mmhg, SpO2=97.0 %, Resp=12 B/min, Comment=NSR 10:00 AM Time out performed according to hospital policy [facility] 10:01 AM Time: 10:01 0.5 ml Lidocaine 2% to right radial Subcutaneous Given by Charan Mijares MD, [facility] 10:02 AM Access obtained by percutaneous puncture. 6Fr 10cm Terumo Glidesheath sheath placed in right Radial artery. [id number] [facility] 10:02 AM Time: 10:02 Versed 2 mg Intravenous Given by Maicol Harris [facility] 10:02 AM Time: 10: Fentanyl 25 mcg Intravenous Given by Maicol Harris [facility] 10:03 AM HR=72 bpm, AULY=975/110 mmhg, LhH6=081.0 %, Resp=24 B/min, Comment=NSR 10:04 AM Time: :04 Patient given 2,000 units Heparin, 200 mcg Nitroglycerin, and 2.5 mg Verapamil Intraarterial by Charan Mijares MD, [facility] 10: AM 5Fr TIG [facility]: AM Time: :49 Patient comfortable and pain free: Yes [facility] 10: AM Time: :49LOC: 5 = Fully awake and oriented or at pre-proc level [facility] 10:04 AM 0.035 260cm Navilyst 3mmJ wire [id number] [facility] 10:07 AM Recorded Pressure: LV, HR=78, Condition=Condition 1 (Left Ventricle) LV 152/43/49 10:07 AM Catheter selectively placed in left ventricle [facility] 10:07 AM Bolus angiogram of left Ventricle complete: 10 ml/sec for a total of 30 mls [facility] 10:08 AM HR=81 bpm, ZGDF=828/99 mmhg, SpO2=92.0 %, Resp=14 B/min, Comment=NSR 10:08 AM Recorded Pressure: LV, Ao, HR=77, Condition=Condition 1 (Left Ventricle) LV 165/17/29, (Aorta) Ao 167/109/133 10:09 AM Catheter removed [facility] 10:09 AM 5Fr FL3.5 catheter inserted over the wire [id number] [facility] 10:11 AM LCA angiography performed in multiple views. [facility] 10:11 AM Recorded Pressure: Ao, HR=77, Condition=Condition 1 (Aorta) Ao 166/127/146 10:12 AM Lesion found in Mid LAD. Pre Stenosis: 50 [facility] 10:12 AM Lesion found in 2nd Diagonal. Pre Stenosis: 90 [facility] 10:12 AM Catheter removed [facility] 10:12 AM 5Fr 3DRC catheter inserted over the wire [id number] unable to engage [facility] 10:13 AM HR=80 bpm, FCQX=031/96 mmhg, SpO2=97.0 %, Resp=13 B/min, Comment=NSR 10:14 AM Lesion found in LMCA. Pre Stenosis: 40 [facility] 10:16 AM Catheter removed [facility] 10:16 AM 5Fr MPA1 catheter inserted over the wire [id number] unable to engage [facility] 10:18 AM HR=82 bpm, EXLN=304/107 mmhg, SpO2=98.0 %, Resp=13 B/min, Comment=NSR 10:18 AM Catheter removed [facility] 10:19 AM 5Fr AR1 catheter inserted over the wire [id number] [facility] 10:19 AM Time: 10:04 Patient comfortable and pain free: Yes [facility] 10:19 AM Time: 10:04LOC: 4 = Oriented but drowsy [facility] 10:20 AM Recorded Pressure: Ao, HR=76, Condition=Condition 1 (Aorta) Ao 153/122/139 10:20 AM RCA angiography performed in multiple views. [facility] 10:21 AM Coronary Dominance: right [facility] 10:21 AM Lesion found in Mid RCA. Pre Stenosis: 95 [facility] 10:23 AM PCI Status Urgent [facility] 10:23 AM PCI Indication: PCI for high risk Non-STEMI or unstable angina [facility] 10:23 AM HR=73 bpm, LFUH=402/99 mmhg, SpO2=97.0 %, Resp=13 B/min, Comment=NSR 10:23 AM PCI lesion in Mid RCA. Pre Stenosis: 95 Pre DOMINGA Flow: 3: Complete and Brisk Flow/Perfusion [facility] 10:23 AM PCI lesion in Mid RCA. [facility] 10:24 AM 6Fr AR1 Runway guide catheter was used to cannulate the PCI vessel successfully. reused? No [facility] 10:27 AM Lesion found in Mid Circumflex. Pre Stenosis: 95 Pre DOMINGA Flow: 3: Complete and Brisk Flow/Perfusion [facility] 10:28 AM HR=66 bpm, CPHB=999/96 mmhg, SpO2=99.0 %, Resp=16 B/min, Comment=NSR : AM Time: 19 ml Lidocaine 2% to right groin Subcutaneous Given by Charan Mijares MD, [facility] 10:29 AM Access obtained by percutaneous puncture. 6Fr 10cm Terumo [place] sheath placed in right Femoral artery. [id number] [facility] 10:31 AM Left Main Coronary Artery with 40% stenosis [facility] 10:31 AM Mid/Distal Left Anterior Descending Coronary Artery and diagonal branches with 90% stenosis. [facility] 10:32 AM Circumflex, Obtuse Marginal, Left Posterior Descending, and Left Posterolateral Coronary Arteries with 95 % stenosis. [facility] 10:32 AM Right Coronary, Right Posterior Descending Arteries with Right Posterolateral and Acute Marginal branches with 95 % stenosis. [facility] 10:33 AM HR=66 bpm, YGLP=079/112 mmhg, AdQ9=764.0 %, Resp=19 B/min, Comment=NSR 10:33 AM 6Fr AR1 guide catheter reinserted [facility] 10:33 AM unable to engage [facility] 10:34 AM Time: 10:19LOC: 4 = Oriented but drowsy [facility] 10:35 AM Time: 10:19 Patient comfortable and pain free: Yes [facility] 10:35 AM At 10:35 the ACT was 160 seconds. [facility] 10:35 AM Time: 10:35 Heparin 4000 units Intravenous Given by Maicol Harris RN [facility] 10:35 AM Guide catheter removed intact. [facility] 10:35 AM 6Fr HS Runway guide catheter was used to cannulate the PCI vessel successfully. reused? No [facility] 10:36 AM Recorded Pressure: Ao, HR=65, Condition=Condition 1 (Aorta) Ao 181/128/152 10:36 AM .014 Alcova 190cm guide wire across target lesion- successful. reused? [facility] AM Inflation device was opened. [facility] 10:37 AM 2.5 mm x 12 mm Emerge Monorail balloon across target lesion- successful. reused? No [facility] 10:38 AM HR=64 bpm, LGZF=583/114 mmhg, JqF4=891.0 %, Resp=15 B/min, Comment=NSR 10:38 AM Time: 10:38 Aggrastat Bolus: 66.5 ml Intravenous Given by Maicol Harris RN Estrella pump [facility] 10:38 AM Balloon inflated @ 10 matt for 13 seconds [facility] 10:39 AM Balloon inflated @ 14 matt for 15 seconds [facility] 10:39 AM Recorded Pressure: Ao, HR=67, Condition=Condition 1 (Aorta) Ao 168/126/146 10:40 AM Time: 10:39 Aggrastat 12.5mg/250ml 24 ml Intravenous Given by Maicol Harris RN [facility] 10[facility] AM Balloon inflated @ 14 matt for 10 seconds [facility] 10:41 AM Balloon catheter removed intact. [facility] 10:42 AM 3.5mm x 32mm Synergy drug-eluting stent across target lesion- successful Lot #[id number] [facility] 10:43 AM Recorded Pressure: Ao, HR=73, Condition=Condition 1 (Aorta) Ao 175/138/158 10:43 AM HR=78 bpm, IKWX=481/119 mmhg, SpO2=98.0 %, Resp=17 B/min, Comment=NSR 10:43 AM Stent deployed @ 16 matt for 24 seconds [facility] 10:43 AM Time: 10:43 Hydralazine 20 mg Intravenous Given by Maicol Harris RN [facility] 10:44 AM Stent delivery system removed intact. [facility] 10:46 AM 4.0 mm x 12mm NC Trek Rx balloon across target lesion- successful. reused? No [facility] 10:48 AM Balloon catheter removed intact. unable to cross [facility] 10:48 AM HR=85 bpm, XOZM=710/118 mmhg, SpO2=99.0 %, Resp=13 B/min, Comment=NSR 10:49 AM 4.0 mm x 8mm NC Trek Rx balloon across target lesion- successful. reused? No [facility] 10:50 AM Time: 10:35 Patient comfortable and pain free: Yes [facility] 10:50 AM Time: 10:34LOC: 4 = Oriented but drowsy [facility] 10:51 AM Balloon catheter removed intact. unable to cross [facility] 10:51 AM .014 Prowater 180cm guide wire across target lesion- successful. reused? No [facility] 10:53 AM Prowater Guide wire removed intact. [facility] 10:53 AM HR=94 bpm, LWXM=226/118 mmhg, SpO2=98.0 %, Resp=14 B/min, Comment=NSR 10:53 AM Recorded Pressure: Ao, HR=91, Condition=Condition 1 (Aorta) Ao 187/127/155 10:54 AM .014 PT Graphix 182cm guide wire across target lesion- successful. reused? No [facility] 10:56 AM 4.0 x 8 trek reinserted [facility] 10:57 AM Balloon inflated @ 12 matt for 14 seconds [facility] 10:57 AM Balloon inflated @ 18 matt for 19 seconds [facility] 10:58 AM HR=89 bpm, JKDO=623/124 mmhg, SpO2=99.0 %, Resp=15 B/min, Comment=NSR 10:59 AM Balloon catheter removed intact. [facility] 11:01 AM Guide wire removed intact. [facility] 11:01 AM Guide catheter removed intact. [facility] 11:01 AM PCI lesion in Mid Circumflex. [facility] 11:01 AM 6Fr CLS 3.0 Runway guide catheter was used to cannulate the PCI vessel successfully. reused? No [facility] 11:02 AM Alcova wire reinserted [facility] 11:03 AM HR=91 bpm, KUGU=175/114 mmhg, SpO2=99.0 %, Resp=22 B/min, Comment=NSR 11:04 AM At 11:04 the ACT was 204 seconds. [facility] 11:05 AM Time: 10:50LOC: 4 = Oriented but drowsy [facility] 11:05 AM Time: 10:50 Patient comfortable and pain free: Yes [facility] 11:05 AM Time: 11:05 Heparin 3000 units Intravenous Given by Maicol Harris RN 11:06 AM 2.5 mm x 12 mm Emerge Monorail balloon across target lesion- successful. reused? Yes [facility] 11:07 AM Balloon inflated @ [address] matt for [address] [facility] [facility] 11:07 AM Time: 11:07 Lopressor 5 mg Intravenous Given by Maicol Harris RN 11:08 AM HR=91 bpm, PSQD=830/121 mmhg, SpO2=99.0 %, Resp=22 B/min, Comment=NSR 11:08 AM Balloon catheter removed intact. [facility] 11:08 AM 3.0mm x 16mm Synergy drug-eluting stent across target lesion- successful Lot #[id number] [facility] 11:09 AM Time: 11: Versed 1 mg Intravenous Given by Maicol Harris RN 11:09 AM Time: 11: Fentanyl 25 mcg Intravenous Given by Maicol Harris RN 11:10 AM Stent deployed @ 12 matt for 17 seconds [facility] 11:11 AM Stent delivery system removed intact. [facility] 11:11 AM 3.5 mm x 8mm NC Trek Rx balloon across target lesion- successful. reused? No [facility] 11:12 AM Recorded Pressure: Ao, HR=85, Condition=Condition 1 (Aorta) Ao 197/134/163 11:13 AM HR=83 bpm, PDWP=429/120 mmhg, SpO2=97.0 %, Resp=13 B/min, Comment=NSR 11:15 AM Balloon inflated @ 12 matt [facility] 11:16 AM Balloon catheter removed intact. [facility] 11:16 AM Guide wire removed intact. [facility] 11:16 AM Recorded Pressure: Ao, HR=83, Condition=Condition 1 (Aorta) Ao 205/137/168 11:17 AM Guide catheter removed intact. [facility] 11:18 AM Bolus angiogram of right Femoral complete: 4 ml/sec for a total of 7 mls [facility] 11:18 AM HR=85 bpm, RBHY=744/124 mmhg, SpO2=97.0 %, Resp=16 B/min, Comment=NSR 11:18 AM Procedure completed at 11:18 [facility] 11:19 AM Sign out completed: Radiation Dose 2174.14 mGy Fluoro Time: 21.7 Isovue 370 - 200ml contrast 257 ml given by Charan Mijares MD, [facility]. Complications: NoneCardiac Rehab Consult needed: YesConfirmed administered medications: Yes [facility] 11:20 AM Isovue 370 - 500ml,1 Bottle(s) used. [facility] :20 AM Sheath left in place to be pulled on floor/holding area [facility] 11:20 AM Arterial sheath pulled, Vasc Band closure device used and was Successful S/N. [facility] 11:20 AM 10 ml air in Vasc Band. [facility] 11:20 AM Post ECG NSR [facility] 11:20 AM Post Blood [facility] 199[facility] 11:20 AM Time: 11:05LOC: 5 = Fully awake and oriented or at pre-proc level [facility] 11:20 AM Time: 11:05 Patient comfortable and pain free: Yes [facility] 11:20 AM 11:20 Post Pulses Rt Radial 2+ [facility] 11:20 AM 11:20 Post Pulses Bilateral DP & PT 2+ [facility] 11:21 AM Information taught Cardiac Cath, PCI, and Vasc Band [facility] 11:21 AM Education needs Procedure, Plan of Care, and Safe & Effective Use of Medications [facility] 11:21 AM Learning barriers :None [facility] 11:21 AM Education Methods Verbal [facility] 11:21 AM Education evaluation Able to repeat information [facility] 11:21 AM Site status No bleeding/hematoma - Rt Groin as reported by Slime Connell RT (R) at 11:21 [facility] 11:21 AM Site status No bleeding/hematoma - Rt Wrist as reported by Slime Connell RT (R) at 11:21 [facility] 11:21 AM Opsite applied [facility] 11:23 AM HR=86 bpm, GSYR=764/116 mmhg, SpO2=97.0 %, Resp=14 B/min, Comment=NSR 11:25 AM Report given to Chay LAZO Pt taken to ICU Room #2. 11:21 [facility] 11:28 AM Time: 11:26 Brilinta 180 mg Orally Given by Maicol Harris RN [facility] 11:31 AM Delay to floor No [facility] 11:31 AM Patient out of room: 11:31 [facility] 11:31 AM Family placed in ICU2. [facility] 11:31 AM Complications: None [facility] 11:31 AM Fluoro Time: 21.7 [facility] 11:31 AM Isovue 370 - 200ml contrast 257 ml given by Charan Mijares MD, [facility]. [facility] 11:31 AM Radiation Dose 2174.14 mGy [facility] Complications Complication None None Hemodynamics Pressures Site Systolic/A Wave Diastolic/V Wave Mean LV 152 43 49 LV 165 17 29 AO 167 109 133 AO 166 127 146 AO 153 122 139 AO 181 128 152 AO 168 126 146 AO 175 138 158 AO 187 127 155 AO 197 134 163 AO 205 137 168 Post Procedure Information Blood Pressure: 199/124 mmHg Rhythm: NSR Post procedural instructions were given Closure Device Time Device Success/Fail 12/02/2016 11:32:00 AM Mechanical Compression Successful Site Checks Time Location Status Staff Sheath In? Note 11:21 AM Rt Groin No bleeding/hematoma Slime Connell RT (R) 11:21 AM Rt Wrist No bleeding/hematoma Slime Connell RT (R) Pulses Time Site Pre-Procedure Post-Procedure Note 12/02/2016 9:26:00 AM Bilateral DP & PT 2+ 12/02/2016 9:26:00 AM Bilateral radial 2+ 12/02/2016 9:50:00 AM Rt Radial Normal plethysmography's Test 11:20:00 AM Rt Radial 2+ 11:20:00 AM Bilateral DP & PT 2+ Updated by Rashmi Roe RN on 12/02/2016 11:38:34 AM electronically signed on 12/02/2016 11:39:59 AM with status of Final
[2016-12-02] MEDS: Nitroglycerin 0.4 MG TAB.SUBL SL PRN (13:04)
--- NOTE | 2016-12-02 15:57 | Invasive Diagnostic Lab ---
Name: Jeff Mcintyre Date of Study: 12/02/2016 Date: 1975 Ht: 178.0 cm /70.1 in Medical Record#: [id number] Age: 41 Wt: 132.8 kg / 292.77 lb Account/Order#: [id number] Gender: Male BSA: 2.46 Order #: [id number] Fluoro Dose: 2174 mGy BMI: 41.91 Procedure Physician: Charan Mijares MD, [facility] Referring MD: Referring MD: Procedures Performed: LEFT HEART CATH Stent w/ PTCA Single Major Vessel GUZMAN LCx Stent w/ PTCA Single Major Vessel GUZMAN RCA Iliofemoral angiography w/ cath Indications: Non-Stemi Impressions: There is severe three vessel coronary artery disease. The left ventricle is normal and has normal contractility EF 55% Patient had successful PTCA/Drug-Eluting Stent placement in the mid RCA and Circ. Tortuous right subclavian Recommendations: Optimal medical therapy of patient's disease. Aggressive risk factor modification. History/Risk Factors: gerd gout kidney stones nstemi Hypertension Dyslipidemia Current/Recent Smoker Procedure Access obtained in the right Femoral and radial artery by percutaneous puncture. Unable to complete intervention via right radial access. Patient had successful PTCA/Drug-Eluting Stent placement in the mid Circ and RCA. Complications: None, None Contrast: Isovue 257ml Closure Device: Mechanical Compression Hemodynamics: Pressures Site Systolic/ A Wave Diastolic/ V Wave End Diastolic/ Mean HR LV 152 43 49 78 LV 165 17 29 83 AO 167 109 133 71 AO 166 127 146 77 AO 153 122 139 76 AO 181 128 152 65 AO 168 126 146 67 AO 175 138 158 73 AO 187 127 155 91 AO 197 134 163 85 AO 205 137 168 83 LV Ventriculography Ejection Method: LV Gram Ejection Fraction: 55% Wall Motion: CABELLO Anterobasal Normal Anterolateral Normal Apical: Normal Inferoapical Normal Inferobasal Normal Coronary Dominance: right Lesion Findings/Interventions * Left Main Coronary Artery There is a 40% stenosis in the LMCA. * Left Anterior Descending The 2nd Diagonal is small in size. There is a 50% stenosis in the Mid LAD. There is a 80% stenosis in the 2nd Diagonal. * Circumflex There is a 16 mm long, 95% stenosis in the Mid Circumflex. The lesion has a DOMINGA flow of 3. An intervention was performed on the Mid Circumflex with a final stenosis of 0%. There were no lesion complications. The final DOMINGA flow was 3. * Right Coronary Artery There is a 32 mm long, 95% stenosis in the Mid RCA. The lesion has a DOMINGA flow of 3. This lesion is further described as diffusely diseased. An intervention was performed on the Mid RCA with a final stenosis of 0%. There were no lesion complications. The final DOMINGA flow was 3. 50% distal RCA and proximal PDA. Right iliofemoral angiography with mild disease and appropriate sheath placement. Interventional Device(s) Vessel Segment Type Name Diameter (mm) Length (mm) Mid RCA Balloon NC Trek Rx 4 8 Mid RCA Balloon NC Trek Rx 4 12 Mid RCA Drug Eluting Stent Synergy 3.5 32 Mid RCA Balloon Emerge Monorail 2.5 12 Mid Circumflex Balloon NC Trek Rx 3.5 8 Mid Circumflex Drug Eluting Stent Synergy 3 16 Mid Circumflex Balloon Emerge Monorail 2.5 12 Updated by Rashmi Roe RN on 12/02/2016 11:38:11 AM Charan Mijares MD, FACC electronically signed on 12/02/2016 3:52:59 PM with status of Final
--- NOTE | 2016-12-02 17:47 | Internal Med Progress Note ---
Date of Encounter: 12/02/16 Time of Encounter: 14:30 - Assessment and plan (1) NSTEMI (non-ST elevated myocardial infarction) Current Visit: Yes Status: Acute Assessment and plan: Patient presented with typical chest pain, EKG changes and troponin elevation. He has been started on anticoagulation with IV heparin drip and loaded with aspirin. Cardiology was consulted, patient underwent left heart catheterization revealing 3 vessel disease. He received 2 drug-eluting stents to left circumflex and RCA. Continue aspirin, Brilinta. Started on Coreg and Crestor per cardiology. Continue telemetry monitoring. Lipid profile shows elevated LDL cholesterol. Lifestyle modifications including weight loss recommended. (2) HTN (hypertension) Current Visit: Yes Status: Chronic Assessment and plan: Blood pressure currently uncontrolled. Continue Norvasc, start Coreg with first dose now. Will use when necessary IV hydralazine for appropriate blood pressure control. Low-sodium diet. Qualifiers: Hypertension type: essential hypertension Qualified Code(s): I10 - Essential (primary) hypertension (3) HLD (hyperlipidemia) Current Visit: Yes Status: Chronic Assessment and plan: Lipid profile shows elevated LDL cholesterol at 153. Start Crestor. Low cholesterol diet. Qualifiers: Hyperlipidemia type: mixed hyperlipidemia Qualified Code(s): E78.2 - Mixed hyperlipidemia (4) Tobacco abuse Current Visit: Yes Status: Chronic Assessment and plan: Patient counseled regarding smoking cessation. Patient is intimidated about his current clinical condition and is motivated to quit smoking. He also declines nicotine transdermal patch at this time and would like to quit cold turkey. - Subjective Interval history: Returned from heart catheter. Reports right groin pain. Improved chest pain and shortness of breath. No palpitations, orthopnea. - Constitutional Vitals: Temp Pulse Resp BP Pulse Ox 98.8 F 98 16 160/88 96 12/02/16 16:00 12/02/16 17:00 12/02/16 17:00 12/02/16 17:00 12/02/16 16:00 General appearance: Present: mild distress, A&O X 3, morbidly obese, answers questions appropriately - Respiratory Respiratory exam: Present: CTAB. Absent: accessory muscle use, rales, rhonchi, wheezes - Cardiovascular Cardiovascular exam: Present: RRR, +S1, +S2. Absent: diastolic murmur, gallop, rubs, systolic murmur - GI/Abdominal GI/Abdominal exam: Present: normal bowel sounds, soft (OBese), no peritoneal signs. Absent: distended, tenderness - Extremities Exam Extremities exam: Present: full ROM, warm, radial pulses palpable and symmetrical. Absent: calf tenderness, cyanotic, pedal edema - Neurological Exam Neurological exam: Present: CN II-XII intact, oriented X3, no focal deficits. Absent: pronater drift, facial droop, speech deficit Internal Medicine: Result - Labs CBC & Chem 7: 12/02/16 04:58 12/02/16 04:58 Labs: Short CBC 12/02/16 Range/Units 04:58 WBC 8.9 (4.3-11.1) K/mcL Hgb 14.2 (12.9-16.9) g/dL Hct 41.2 (37.5-50.1) % Plt Count 160 (140-400) K/mcL Neutrophils # 5.4 (1.6-8.9) K/mcL BMP 12/02/16 04:58 Sodium 140 Potassium 3.7 Chloride 107 Carbon Dioxide 27 BUN 12 Creatinine 0.85 Glucose 96 Calcium 9.1 Cardiac Enzymes 12/02/16 Range/Units 04:58 Troponin I 0.78 H* (0-0.03) ng/mL Liver Function 12/02/16 Range/Units 04:58 Total Bilirubin 1.0 (0.2-1.2) mg/dL AST 36 H (5-34) Units/L ALT 54 (0-55) Units/L Alkaline Phosphatase 65 (38-126) Units/L Albumin 3.5 (3.5-5.0) g/dL - ABG Interpretation ABG results: PT/INR, D-dimer PT 12.3 Seconds (9.4-12.1) H 12/02/16 00:36 Consult Discharge Plan - Plan Referrals: Delbert Foreman DO [Primary Care Provider] -
[2016-12-02] MEDS: *HR* Ticagrelor 90 MG TABLET PO SCH (19:58)
--- NOTE | 2016-12-03 08:33 | Cardiology Progress Note ---
Date of Encounter: 12/03/16 Time of Encounter: 05:50 Assessment and Plan (1) NSTEMI (non-ST elevated myocardial infarction) Current Visit: Yes Status: Acute Troponin peak 0.83 with ischemic ECG changes, now resolved. Presented with typical chest pain symptoms. [facility] 12/02/16: severe 3v CAD; s/p successful PTCA/GUZMAN to mRCA and mLCx; existing 40% LMCA, 50% mLAD, and 80% diagonal (small). TTE 12/02/16: EF 55-60%, no significant valvular dysfunction. Basal inferior wall was hypokinetic. Denies recurrent chest pain. Has been up ambulating without symptoms. Post PCI discharge instructions discussed and length including importance of uninterrupted DAPT (asa + brilinta) for at least 1 year--saving card provided. No issues with right groin cath site--restrictions/limitations discussed. Continue DAPT, statin, betablocker, and norvasc. Recommend prn SL NTG at d/c. Cardiology will sign-off, will arrange for outpatient follow-up. (2) HLD (hyperlipidemia) Current Visit: Yes Status: Chronic Start statin. Lifestyle modifications, risk factor reduction. Qualifiers: Hyperlipidemia type: mixed hyperlipidemia Qualified Code(s): E78.2 - Mixed hyperlipidemia (3) HTN (hypertension) Current Visit: Yes Status: Chronic Severely elevated upon arrival, 221/133. Continues to be poorly controlled, will increase betablocker this AM. Qualifiers: Hypertension type: essential hypertension Qualified Code(s): I10 - Essential (primary) hypertension (4) Tobacco abuse Current Visit: Yes Status: Chronic Smoking cessation counseling provided, interested in Chantix. Discussion w patient/family: The assessment and plan as outlined above was discussed with the patient and/or family members who expressed understanding and agreement. All questions were answered. Thank you for involving us in the care of your patient. Please call with any questions. The patient will be discussed and reviewed with Dr. Atkinson; Cardiology will sign- off. Subjective Principal diagnosis: NSTEMI Interval history: Seen and examined earlier this AM. Denies recurrent chest pain overnight. No issues with right radial cath site. Objective Vital Signs, Last 4 Hours Temp Pulse Resp BP Pulse Ox 12/03/16 08:09 98.6 F 12/03/16 06:00 94 22 152/96 100 08/13/17 05:00 95 18 143/91 100 General: Conversant, Other (obese) HEENT: Atraumatic, Normocephaly Cardiac: Reg Rate and Rhythm, Normal S1 and S2 Lungs: Normal Breath Sounds Neuro: Alert and responsive Abdomen: Soft Skin: No rashes noted on visualized skin Musculoskeletal: No Chest Wall Tenderness Extremities: No Edema, Normal Pulses Other: right groin: dressing clean, dry, and intact. No hematoma, oozing, or bleeding noted at site. +2 DP/PT pulses. Results 12/02/16 04:58 12/02/16 04:58 Lab Results 12/02/16 08:02 APTT 37.8 H Active Medications Acetaminophen (Tylenol) 650 mg PO Q6HR PRN PRN Reason: Mild Pain Stop: 06/03/17 11:27 Last Admin: 12/02/16 20:02 Dose: 650 mg Hydrocodone Bitart/Acetaminophen ([place] 5-325 Mg) 1 tab PO Q4HR PRN PRN Reason: Moderate Pain Stop: 06/03/17 11:27 Amlodipine Besylate (Norvasc) 10 mg PO DAILY [facility] Stop: 06/03/17 09:01 Last Admin: 12/02/16 08:47 Dose: Not Given Aspirin (Aspirin Ec) 81 mg PO DAILY [facility] Stop: 06/03/17 09:01 Last Admin: 12/02/16 09:12 Dose: 81 mg Calcium Carbonate (Tums) 1,000 mg PO Q6H PRN; Protocol PRN Reason: Heartburn Stop: 06/03/17 14:44 Last Admin: 12/02/16 15:23 Dose: 1,000 mg Carvedilol (Coreg) 12.5 mg PO BIDWM MERYL PRN Reason: Protocol Stop: 06/04/17 08:34 Heparin Sodium (Porcine) (Heparin) 4,000 unit IVP Q6HR PRN PRN Reason: SEE COMMENTS Stop: 06/02/17 23:46 Heparin Sodium (Porcine) (Heparin) 2,000 unit IVP Q6H PRN PRN Reason: SEE COMMENTS Stop: 06/02/17 23:46 Hydralazine HCl (Hydralazine) 20 mg IVP Q6HR PRN PRN Reason: Hypertension Stop: 06/03/17 11:29 Last Admin: 12/03/16 04:05 Dose: 20 mg Naloxone HCl (Narcan) 0.4 mg IVP Q2MIN PRN PRN Reason: Opioid Reversal Stop: 06/02/17 21:09 Nitroglycerin (Nitroglycerin) 0.4 mg SL Q5MIN PRN PRN Reason: Chest Pain Stop: 06/02/17 16:59 Last Admin: 12/02/16 13:04 Dose: 0.4 mg Omeprazole (Prilosec) 20 mg PO DAILY@0630 MERYL PRN Reason: Protocol Stop: 06/04/17 06:31 Last Admin: 12/03/16 06:13 Dose: 20 mg Ondansetron HCl (Zofran) 4 mg IVP Q6HR PRN; Protocol PRN Reason: Nausea And Vomiting Stop: 06/03/17 11:28 Last Admin: 12/02/16 13:15 Dose: 4 mg Oxycodone/Acetaminophen (Percocet 5/325) 1 each PO Q4HR PRN PRN Reason: Severe Pain Stop: 06/03/17 11:27 Rosuvastatin Calcium (Crestor) 40 mg PO HS [facility] Stop: 06/03/17 21:01 Last Admin: 12/02/16 19:58 Dose: 40 mg Ticagrelor (Brilinta) 90 mg PO BID [facility] Stop: 06/03/17 21:01 Last Admin: 12/02/16 19:58 Dose: 90 mg - Imaging and Cardiology Echo: report reviewed Cardiac cath: report reviewed Other Results: 12 hour tele: avg HR=80. No events noted. - EKG Interpretation EKG results cardiology: personally reviewed Consult Discharge Plan - Plan Referrals: Delbert Foreman DO [Primary Care Provider] -
[2016-12-03] MEDS: *HR* Ticagrelor 90 MG TABLET PO SCH (08:36)
[2016-12-03] MEDS: amLODIPine 5 MG TABLET PO SCH (08:36)
[2016-12-03] MEDS: Aspirin Enteric Coated 81 MG Tablet PO SCH (08:36)
[2016-12-03 08:46] VITALS: BP 166/91
--- NOTE | 2016-12-03 11:03 | Discharge Summary ---
Date of Encounter: 12/03/16 Time of Encounter: 11:00 - Discharge Diagnosis (1) NSTEMI (non-ST elevated myocardial infarction) Priority: Primary Status: Acute (2) HTN (hypertension) Priority: Secondary Status: Chronic Qualifiers: Hypertension type: essential hypertension Qualified Code(s): I10 - Essential (primary) hypertension (3) HLD (hyperlipidemia) Priority: Secondary Status: Chronic Qualifiers: Hyperlipidemia type: mixed hyperlipidemia Qualified Code(s): E78.2 - Mixed hyperlipidemia (4) Tobacco abuse Priority: Secondary Status: Chronic - Discharge Medications Prescriptions: Nitroglycerin 0.4 mg SL Q5MIN PRN #30 PRN Reason: Chest Pain Aspirin Enteric Coated [Aspirin EC] 81 mg PO DAILY #30 Carvedilol [Coreg] 12.5 mg PO BIDWM #120 tab Rosuvastatin [Crestor] 40 mg PO HS #30 tab Ticagrelor [Brilinta] 90 mg PO BID #60 tab Home Medications: Amlodipine Besylate 10 mg PO DAILY 12/01/16 [History] Aspirin Enteric Coated [Aspirin EC] 81 mg PO DAILY #30 12/03/16 [Rx] Carvedilol [Coreg] 12.5 mg PO BIDWM #120 tab 12/03/16 [Rx] Nitroglycerin 0.4 mg SL Q5MIN PRN #30 12/03/16 [Rx] Rosuvastatin [Crestor] 40 mg PO HS #30 tab 12/03/16 [Rx] Ticagrelor [Brilinta] 90 mg PO BID #60 tab 12/03/16 [Rx] Allergies/Adverse Reactions: Allergies No Known Allergies Allergy (Verified 06/14/15 11:06) Procedures/tests Complete & Pending: Procedures Performed prior 72 hours Category Date Time Status CL Cardiac Catheterization [CL] Routine Computer Network Support Specialist 12/02/16 08:50 Completed Date of admission: 12/02/16 04:00 Primary care physician: Delbert Foreman, Consults: 12/02/16 08:49 Consult to Cardiac Rehabilitation-Phase1 [CONS] Routine Comment: Reason for Consult: NSTEMI Call Completed: No Discharging clinician: Belle Robles Anticipated date of discharge: 12/03/16 - Patient Status Disposition: Home, Self-Care Condition: Good Functional capacity at discharge: independent ambulation Overall status at discharge: patient is progressing back to baseline - Discharge Instructions Instructions: Myocardial Infarction (DC), How to Stop Smoking (DC), Cigarette Smoking and Your Health (GEN) Follow Up With: Delbert Foreman DO [Primary Care Provider] - Additional Instructions: F/up with [facility] in 7-10 days F/up with Cardiac rehab as scheduled - Diet and Activity Activity: return to school once cleared by your PCP/specialist (after Cardiology f/up), other Diet: low fat, low cholesterol, low salt diet, other (smoking cessation) Hospital course: Mr. Mcintyre is a 41 year old male with h/o- HTN and tobacco abuse, was admitted with left-sided chest pain and diaphoresis and noted to have Troponin elevation. He was started on IV Heparin drip and loaded with ASA for NSTEMI, started on beta-annmarie and statin. Lipid profile showed elevated LDL cholesterol and slightly low HDL cholesterol. Cardiology was consulted and patient underwent left heart catheterization that revealed 3 vessel disease and he received two GUZMAN to LCX and RCA. He was educated about uninterrupted DAPT along with risk factor modification and smoking cessation and he verbalized understanding, very motivated to quit completely. His beta annmarie is being increased due to slightly elevated BP. He is otherwise medically stable for discharge today. - Time Spent with Patient Total time spent providing and/or coordinating discharge services: Greater than 30 minutes (45 min) - Constitutional Vitals: Temp Pulse Resp BP Pulse Ox 98.6 F 113 19 166/91 96 12/03/16 08:09 12/03/16 08:41 12/03/16 08:41 12/03/16 08:41 12/03/16 08:41 General appearance: Present: A&O X 3, morbidly obese, answers questions appropriately - Cardiovascular Cardiovascular exam: Present: RRR, +S1, +S2. Absent: diastolic murmur, gallop, rubs, systolic murmur
--- NOTE | 2016-12-03 12:29 | Electrocardiograph Report ---
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
--- NOTE | 2016-12-03 12:35 | Electrocardiograph Report ---
[address] [address] Test Date: 2016-12-01 Pat Name: Jeff Mcintyre Department: 104 Room: [facility] Gender: M Pharmacy Coordinator: ZEUS : 1975 Requested By: Casimiro Quintanilla Order Number: [id number] Reading MD: Jess Atkinson Measurements Intervals [place] Rate: 90 P: 6 WA: 164 QRS: -14 QRSD: 102 T: -10 QT: 386 QTc: 433 Interpretive Statements SINUS RHYTHM NONSPECIFIC ST-T FINDINGS INFERIORLY Electronically Signed On 12-03-2016 12:33:44 EDT by Jess Atkinson
--- NOTE | 2016-12-03 12:38 | Electrocardiograph Report ---
[address] [place], [place] [address] Test Date: 2016-12-01 Pat Name: Jeff Mcintyre Department: 104 Room: [facility] Gender: M Orchid Hand: ZEUS : 1975 Requested By: Nestor Covarrubias Order Number: [id number] Reading MD: Jess Atkinson Measurements Intervals [place] Rate: 70 P: 20 SC: 175 QRS: -7 QRSD: 117 T: -9 QT: 411 QTc: 432 Interpretive Statements SINUS RHYTHM NONSPECIFIC ST-T FINDINGS INFERIORLY Electronically Signed On 12-03-2016 12:36:31 EDT by Jess Atkinson
== END 2016-12-03 11:58 | disposition home or self-care (01) | DRG 247 ==
LOC: EMEROO 16:43 → 3BNU 16:43 → 2NENU 22:59 → SUATTDRO 12-02 04:00 → ICNU 12-02 11:40
PROVIDERS: ADMIT Nurse Practitioner Family; ATTEND Internal Medicine

== ENCOUNTER 2017-06-26 20:21 | Observation (INO) ==
[2017-06-26] MEDS ORDERED: Aspirin 81 MG TAB.CHEW PO ONE (21:30)
[2017-06-26 21:47] LABS: Basophils % 0.7 %; Eosinophils # 0.2 K/mcL (0.0-0.6); Eosinophils % 3.9 %; Hematocrit 39.7 % (37.5-50.1); Immature Granulocytes % 0.2 % (0-4); Lymphocytes % 24.1 %; Mean Corpuscular HGB Conc 32.7 g/dL (31.6-35.5); Mean Corpuscular Hemoglobin 28.9 pg (28.0-33.3); Mean Corpuscular Volume 88.2 fL (83.0-100.0); Mean Platelet Volume 10.4 fL (9.4-12.4); Monocytes # 0.5 K/mcL (0.0-1.3); Monocytes % 11.1 %; Neutrophils # 2.5 K/mcL (1.6-8.9); Platelet Count 144 K/mcL (140-400); Red Cell Distribution Width 12.2 % (11.5-14.5)
[2017-06-26 21:53] LABS: INR 1.2; Prothrombin Time 12.5 Seconds (9.4-12.1)
[2017-06-26 21:55] LABS: Activated Partial Thrombo Time 28.7 Seconds (26.0-36.0)
[2017-06-26 22:08] LABS: BUN/Creatinine Ratio 10 (6-26); Blood Urea Nitrogen 11 mg/dL (6-20); Calcium 9.3 mg/dL (8.6-10.3); Carbon Dioxide 28 mEq/L (23-29); Chloride 106 mEq/L (98-107); Glucose 133 mg/dL (70-105); Osmolality,Calculated 291 (280-300); Potassium 3.4 mEq/L (3.5-5.1); Sodium 140 mEq/L (136-145); Troponin I < 0.03 ng/mL (< 0.04); eGFR For African Americans > 60 (> 60); eGFR For Non-African Americans > 60 (> 60)
[2017-06-26] MEDS ORDERED: Nitroglycerin 0.4 MG TAB.SUBL SL PRN (22:48)
--- NOTE | 2017-06-26 22:53 | Emergency Department Note ---
Disposition Clinical Impression: Chest pain Qualifiers: Chest pain type: unspecified Qualified Code(s): R07.9 - Chest pain, unspecified Disposition: Admitted As Inpatient Condition: Fair Referrals: Delbert Foreman DO [Primary Care Provider] - Forms: ED Satisfaction Letter Time of Disposition: 23:06 General Adult HPI - General Chief complaint: ED Chest Pain Stated complaint: herberth ,congestion,ear pain Time Seen by Provider: 06/26/17 20:59 Source: patient Limitations: no limitations Nursing Notes Reviewed: Yes Vital Signs Reviewed: Yes - History of Present Illness HPI Narrative: 41-year-old male with significant past medical history of NSTEMI in November and atypical chest pain presenting to the emergency department with chief complaint of congestion, cough and chest pressure. Patient states for the past couple of days he has not been feeling well. Trying NyQuil at home with no relief. Patient was concerned when he became dyspneic on exertion. Unable to walk up the stairs. Patient had an STEMI recently and states his presenting symptoms were atypical and he was concerned for cardiac etiology at this time. Pain Scale: 6 - Related Data Home Medications Medication Instructions Recorded Confirmed Amlodipine Besylate 10 mg PO DAILY 12/01/16 12/19/16 Losartan Potassium 25 mg PO HS 12/19/16 12/19/16 Previous Rx's Medication Instructions Recorded Aspirin Enteric Coated [Aspirin EC] 81 mg PO DAILY #30 12/03/16 Carvedilol [Coreg] 12.5 mg PO BIDWM #120 tab 12/03/16 Nitroglycerin 0.4 mg SL Q5MIN PRN #30 12/03/16 Rosuvastatin [Crestor] 40 mg PO HS #30 tab 12/03/16 Ticagrelor [Brilinta] 90 mg PO BID #60 tab 12/03/16 Clopidogrel Bisulfate [Plavix] 75 mg PO 8XD #11 tablet 02/08/17 Allergies Allergy/AdvReac Type Severity Reaction Status Date / Time No Known Allergies Allergy Verified 12/19/16 14:10 All systems ED: reviewed and negative except as stated. Cardiovascular: Reports: chest pain, dyspnea on exertion Past Medical History - Past Medical History Attestation: Yes The following information was validated with the patient. Medical history: Reports: coronary artery disease, GERD, hyperlipidemia, hypertension, kidney stones, liver disease, myocardial infarction, other Surgical history: Reports: appendectomy Psychiatric history: Reports: no psych history - Social History Smoking Status: Former smoker Smokeless Tobacco Status: No Alcohol use: Reports: none Drug use: Reports: none Physical Exam - General Limitations: no limitations General appearance: alert, in no apparent distress - Head Head exam: atraumatic, normocephalic, normal inspection - Eye Eye exam: Present: normal appearance. Absent: scleral icterus, conjunctival injection - ENT ENT exam: normal exam, mucous membranes moist - Neck Neck exam: Present: normal inspection. Absent: tenderness, meningismus - Chest Chest inspection: Present: normal inspection, symmetric chest wall rise. Absent : tenderness, rash - Respiratory Respiratory exam: Present: normal lung sounds bilaterally. Absent: respiratory distress, wheezes - Cardiovascular Cardiovascular exam: Present: regular rate, normal rhythm, normal heart sounds - Abdominal Exam Abdominal exam: Present: soft, Non-Tender. Absent: distention, guarding, rebound - Extremities Exam Extremities exam: Present: normal inspection, full ROM - Neurological Exam Neurological exam: Present: alert, oriented X3 - Psychiatric Psychiatric exam: Present: normal affect, normal mood - Skin Skin exam: Present: warm, dry Course Course Narrative: 41-year-old male with significant past medical history of an STEMI presenting to the emergency department with dyspnea on exertion. We will perform basic lab work including CBC, BMP, troponin and EKG along with chest x-ray. Patient is alert and oriented 3 in the room. Hypertensive on exam but otherwise vital signs within normal limits. Disposition most likely will be admission due to his recent STEMI but pending results. Patient agreed to this plan. - Reevaluation(s) Reevaluation #1: Labs and EKG unchanged. Due to patient's chest pressure will provide him with aspirin and nitroglycerin and plan to admit him for chest pain workup. Patient is alert and oriented 3 in the room. Hypertensive but otherwise vital signs within normal limits. I spoke with the hospitalist on-call Dr. Lindsey who agrees to accept the patient at this time. Patient agrees with this plan. Vital Signs Temperature 99.3 F 06/26/17 20:28 Pulse Rate 82 06/26/17 20:28 Respiratory Rate 22 06/26/17 20:28 Blood Pressure 170/117 06/26/17 20:28 O2 Sat by Pulse Oximetry 97 06/26/17 20:28 Temperature 99.3 F 06/26/17 20:28 Pulse Rate 83 06/26/17 21:09 Respiratory Rate 20 06/26/17 21:09 Blood Pressure 168/107 06/26/17 21:09 O2 Sat by Pulse Oximetry 99 06/26/17 21:09 Oxygen Delivery Oxygen Delivery Room Air Medical Decision Making - Lab Data Result diagrams: 06/26/17 21:36 06/26/17 21:36 Lab Results 06/26/17 06/26/17 06/26/17 Range/Units 21:12 21:36 21:36 WBC 4.2 L (4.3-11.1) K/mcL RBC 4.50 (4.19-5.50) M/mcL Hgb 13.0 (12.9-16.9) g/dL Hct 39.7 (37.5-50.1) % MCV 88.2 (83.0-100.0) fL MCH 28.9 (28.0-33.3) pg MCHC 32.7 (31.6-35.5) g/dL RDW 12.2 (11.5-14.5) % Plt Count 144 (140-400) K/mcL MPV 10.4 (9.4-12.4) fL Immature Gran % 0.2 (0-4) % Seg Neutrophils % 60.0 % Lymphocytes % 24.1 % Monocytes % 11.1 % Eosinophils % 3.9 % Basophils % 0.7 % Neutrophils # 2.5 (1.6-8.9) K/mcL Lymphocytes # 1.0 (0.6-4.6) K/mcL Monocytes # 0.5 (0.0-1.3) K/mcL Eosinophils # 0.2 (0.0-0.6) K/mcL Basophils # 0.0 (0.0-0.2) K/mcL PT 12.5 H (9.4-12.1) Seconds INR 1.2 APTT 28.7 (26.0-36.0) Seconds Sodium 140 (136-145) mEq/L Potassium 3.4 L (3.5-5.1) mEq/L Chloride 106 (98-107) mEq/L Carbon Dioxide 28 (23-29) mEq/L BUN 11 (6-20) mg/dL Creatinine 1.08 (0.70-1.30) mg/dL Est GFR ( Amer) > 60 (> 60) Est GFR (Non-Af Amer) > 60 (> 60) BUN/Creatinine Ratio 10 (6-26) Glucose 133 H (70-105) mg/dL Calculated Osmolality 291 (280-300) Calcium 9.3 (8.6-10.3) mg/dL Troponin I < 0.03 (< 0.04) ng/mL - EKG Data EKG #1 EKG attestation: Yes I reviewed and interpreted this EKG. EKG results narrative: Normal sinus rhythm. 78 bpm. SC interval 181, QRS 103, QTC 374. No symptoms of acute ST segment elevation or ischemia noted. Compared to previous EKG completed on 01/18/2017 no significant changes noted. Attestation Statement - Attestation Attestation: I, Aly Iyer, examined this patient and my medical decision-making was reviewed with the SALES MARKET LEADER/PA/Advanced Practice Nurse/Resident Physician. I agree with the documented findings, disposition and treatment plan as described except to the extent set forth below. 41-year-old male presents emergency Department with concerns of generalized malaise, weakness, fatigue and dyspnea on exertion. Patient states he becomes dyspneic walking up the stairs. He has also had chest pressure throughout the day. Patient has a history of coronary artery disease with 2 stents placed 6 months ago. Patient states the pain today does feel somewhat different than his and STEMI however he also reports he did not have typical presentation of cardiac disease initially. Initial laboratory evaluation is within normal limits. EKG shows normal sinus rhythm with rate of 78 without evidence of acute ischemia or STEMI. Patient blood pressure is not well controlled however he did not take his night medications prior to evaluation. Patient will be admitted to the hospitalist for further care and evaluation of his chest pain to rule out ACS.
[2017-06-27] MEDS: *HR* OxyCODONE Immed Rel 5 MG TABLET PO PRN ×2 (01:44→08:01)
[2017-06-27] MEDS ORDERED: Acetaminophen 325 MG TABLET PO PRN (06:17)
[2017-06-27] MEDS ORDERED: Naloxone 0.4 MG/ML INJ IVP PRN (06:17)
[2017-06-27] MEDS ORDERED: Nitroglycerin 0.4 MG TAB.SUBL SL PRN (06:20)
--- NOTE | 2017-06-27 06:28 | Internal Med History&Physical ---
Date of Encounter: 06/27/17 Time of Encounter: 05:50 Assessment and Plan (1) Chest pain Current visit: Yes Status: Acute 1. Will keep npo and consult Cardiology for further work-up/guidance given recent NSTEMI, LHC with intervention. 2. Will trend troponins and EKG's. 3. Continue home meds as appropriate and once verified. 4. Patient currently chest pain free. Qualifiers: Chest pain type: chest pain due to myocardial ischemia Ischemic chest pain type: stable angina pectoris Qualified Code(s): I20.8 - Other forms of angina pectoris (2) HTN (hypertension) Current visit: No Status: Chronic 1. Continue home meds as appropriate. 2. Monitor BP and adjust as necessary. Qualifiers: Hypertension type: essential hypertension Qualified Code(s): I10 - Essential (primary) hypertension (3) DVT prophylaxis Current visit: No Status: Acute 1. Heparin SQ. Internal Medicine - H&P: HPI Chief complaint: chest pain Admitted From: Emergency Dept Plans for Post Hospital Care: Home History of present illness: Mr. Mcintyre is a 41 year old male who presented to the ER with complaints of chest pain and dyspnea on exertion for the last 2 days. He was working this past weekend at the [employer] in [place]. As he was working and lifting equipment, he developed some shortness of breath and body aches. He thought he was having flulike symptoms and brushed them off. However, as the weekend progressed into Sunday and Sunday, he had continued chest tightness and dyspnea with exertion. Because of his known coronary artery disease and a recent non-STEMI, he came to ER for evaluation. Workup was negative by ER and he was admitted to the hospitalist service nonetheless. Upon my assessment of the patient this morning, he is chest pain-free and has no dyspnea. He does have some nasal congestion and postnasal drip. He denies any fevers, productive cough, wheezing, vomiting, diarrhea. The chest pain and dyspnea he had earlier yesterday and today was similar to that of his non-STEMI this past summer. On his left heart catheterization, he has documented severe triple vessel disease and he had PCI and stent of 2 vessels. He has been taking his medications religiously, in particular aspirin and Brilinta. Past Med Surg Social Fam HX - Past Medical History Attestation: Yes The following information was validated with the patient. Source: patient, old records reviewed Medical history: coronary artery disease, GERD, hyperlipidemia, hypertension, kidney stones, liver disease, myocardial infarction Psychiatric history: no psych history - Past Surgical History Surgical History: angioplasty/stent, appendectomy - Social History Smoking Status: Former smoker Smokeless Tobacco Status: No Alcohol use: none Drug use: none Occupational status: employed Current living situation: Home, With Family Activity Level: Independent ambulation Recent Out of Country Travel Within the Last 8 Weeks: No - Family History Father Adopted: No Family Member Ethnicity: Non- Living Status: Still Living Hx Family Cardiac Disorders: No Hx Family Respiratory Disorders: No Hx Family Cancer: No Hx Family GI Disorders: No Hx Family Endocrine Disorder: Yes (diabetes) Hx Family Neuromuscular Disorders: No Hx Family Neurologic Disorders: No Hx Family HEENT Disorders: No Hx Family Autoimmune Disorders: No Mother Living Status: Hx Family Cardiac Disorders: No Hx Family Respiratory Disorders: No Hx Family Cancer: Yes Hx Family GI Disorders: No Hx Family Endocrine Disorder: Yes (diabetes) Hx Family Neuromuscular Disorders: No Hx Family Neurologic Disorders: No Hx Family HEENT Disorders: No Hx Family Autoimmune Disorders: No Internal Medicine - H&P: Meds Amlodipine Besylate 10 mg PO DAILY 12/01/16 [History] Aspirin Enteric Coated [Aspirin EC] 81 mg PO DAILY #30 12/03/16 [Rx] Carvedilol [Coreg] 12.5 mg PO BIDWM #120 tab 12/03/16 [Rx] Nitroglycerin 0.4 mg SL Q5MIN PRN #30 12/03/16 [Rx] Rosuvastatin [Crestor] 40 mg PO HS #30 tab 12/03/16 [Rx] Ticagrelor [Brilinta] 90 mg PO BID #60 tab 12/03/16 [Rx] Losartan Potassium 25 mg PO HS 12/19/16 [History] Clopidogrel Bisulfate [Plavix] 75 mg PO 8XD #11 tablet 02/08/17 [Rx] 3 Allergy/AdvReac Type Severity Reaction Status Date / Time No Known Allergies Allergy Verified 12/19/16 14:10 - Constitutional Constitutional: no chills, no fever(s), no night sweats - EENT Eyes: no blurry vision, no change in vision Ears: no ear pain, no tinnitus Nose, mouth and throat: no nasal congestion, no nasal discharge, no sinus pressure, no sore throat - Cardiovascular Cardiovascular ROS IM: chest pain, dyspnea, dyspnea on exertion, no irregular heart rhythm, no orthopnea, no palpitations, no syncope - Respiratory Respiratory: cough, no hemoptysis, no pain on inspiration, no chest congestion, no excessive phlegm production, no change in phlegm color, no pain with cough - Gastrointestinal Gastrointestinal: no abdominal pain, no diarrhea, no hematemesis, no hematochezia, no melena, no nausea, no vomiting - Genitourinary Genitourinary ROS male: no dysuria, no flank pain, no hematuria - Musculoskeletal Musculoskeletal ROS IM: no arthralgias, no back pain - Integumentary Integumentary IM: no rash, no jaundice - Neurological Neurological ROS: no dizziness, no focal weakness, no frequent falls, no headache(s), no weakness - Psychiatric Psychiatric: no anxiety, no depression - Endocrine Endocrine IM: no polydipsia, no polyuria - Hematologic/Lymphatic Hematologic/Lymphatic: no easy bruising, no lymphadenopathy - Allergic/Immunologic Allergic/Immunologic: no wheezing, no GI upset with certain foods - Constitutional Vitals: Temp Pulse Resp BP Pulse Ox 98.1 F 79 17 143/86 95 06/27/17 02:41 06/27/17 02:41 06/27/17 02:41 06/27/17 02:41 06/27/17 02:41 General appearance: Present: cooperative, A&O X 3, pleasant, no acute distress, answers questions appropriately - Head Head exam: Present: normal inspection - Expanded Head Exam Head exam expanded: Absent: abrasion, contusion - Eye Eye exam: Present: EOMI, PERRL. Absent: scleral icterus Pupils: Present: normal accommodation - ENT ENT exam: Present: mucous membranes dry, normal exam, normal oropharynx - Neck Neck exam general surgery: Present: full ROM, normal inspection, supple. Absent : tenderness, nuchal rigidity - Respiratory Respiratory exam: Present: CTAB. Absent: chest wall tenderness, rales, respiratory distress, rhonchi, wheezes - Cardiovascular Cardiovascular exam: Present: RRR, +S1, +S2. Absent: diastolic murmur, systolic murmur - GI/Abdominal GI/Abdominal exam: Present: normal bowel sounds, soft. Absent: hepatomegaly, mass, splenomegaly - Extremities Exam Extremities exam: Present: full ROM, normal capillary refill, warm, radial pulses palpable and symmetrical. Absent: calf tenderness, joint swelling, pedal edema, tenderness - Back Exam Back exam: Absent: CVA tenderness (L), CVA tenderness (R) - Neurological Exam Neurological exam: Present: alert, CN II-XII intact, oriented X3 - Psychiatric Psychiatric exam: Present: normal affect, normal mood - Skin Skin exam: Present: dry, warm. Absent: rash Internal Med - H&P Results - Labs CBC & Chem 7: 06/26/17 21:36 06/26/17 21:36 - EKG Data -: EKG Interpreted by Myself - EKG Data Prior EKG available for review: no EKG comments: 06/27/17 06:33 NSR; no acute ST-T changes - Diagnostic Studies Chest x-ray Status: image reviewed by me (negative)
[2017-06-27 06:56] LABS: Basophils % 0.7 %; Eosinophils # 0.2 K/mcL (0.0-0.6); Eosinophils % 4.5 %; Hematocrit 39.5 % (37.5-50.1); Hemoglobin 12.8 g/dL (12.9-16.9); Immature Granulocytes % 0.2 % (0-4); Lymphocytes # 1.2 K/mcL (0.6-4.6); Lymphocytes % 28.2 %; Mean Corpuscular HGB Conc 32.4 g/dL (31.6-35.5); Mean Corpuscular Hemoglobin 28.7 pg (28.0-33.3); Mean Corpuscular Volume 88.6 fL (83.0-100.0); Mean Platelet Volume 10.7 fL (9.4-12.4); Monocytes # 0.5 K/mcL (0.0-1.3); Monocytes % 11.3 %; Neutrophils # 2.4 K/mcL (1.6-8.9); Platelet Count 149 K/mcL (140-400); Red Blood Count 4.46 M/mcL (4.19-5.50); Red Cell Distribution Width 12.6 % (11.5-14.5); Segmented Neutrophils % 55.1 %
[2017-06-27] MEDS: *HR* Heparin 5,000 UNIT/ML VIAL SQ SCH ×3 (07:00→20:14)
[2017-06-27] MEDS: 0.9 % Sodium Chloride w KCl 20 MEQ/1,000 ML MLS IVC SCH (07:00)
[2017-06-27 07:17] LABS: Alanine Aminotransferase 60 Units/L (7-52); Albumin 3.8 g/dL (3.5-5.7); Albumin/Globulin Ratio 1.3 (1.1-2.2); Alkaline Phosphatase 62 Units/L (34-104); Aspartate Amino Transferase 48 Units/L (13-39); BUN/Creatinine Ratio 14 (6-26); Bilirubin,Total 0.8 mg/dL (0.3-1.0); Blood Urea Nitrogen 12 mg/dL (6-20); Carbon Dioxide 25 mEq/L (23-29); Chloride 108 mEq/L (98-107); Chol/HDL Ratio 3.4 (0-4.9); Cholesterol 93 mg/dL (< 200); Glucose 105 mg/dL (70-105); HDL Cholesterol 27 mg/dL (40-59); LDL Cholesterol,Calculated 46 mg/dL (0-99); Magnesium 1.9 mg/dL (1.6-2.6); Osmolality,Calculated 290 (280-300); Potassium 3.5 mEq/L (3.5-5.1); Sodium 140 mEq/L (136-145); Total Protein 6.8 g/dL (6.4-8.9); Triglycerides 98 mg/dL (< 150); eGFR For African Americans > 60 (> 60); eGFR For Non-African Americans > 60 (> 60)
[2017-06-27] MEDS: Aspirin Enteric Coated 81 MG Tablet PO SCH (07:57)
[2017-06-27] MEDS: *HR* Ticagrelor 90 MG TABLET PO SCH ×2 (07:57→20:13)
[2017-06-27] MEDS ORDERED: Regadenoson 0.4 MG/5 ML SYRINGE IVP ONE (09:10)
[2017-06-27] MEDS: amLODIPine 5 MG TABLET PO SCH (12:25)
--- NOTE | 2017-06-27 14:02 | Event Note ---
Date of Encounter: 06/27/17 Time of Encounter: 14:00 Patient returned from first part of the stress test. He is having no chest pain easy his lunch. He is complaining of right ear pain and sinus congestion. He does have a right oh tight otitis media. He also has a lot of sinus congestion. We will start on Augmentin 875 mg by mouth twice a day. We will also obtain a respiratory infection panel as he states he has had a flulike illness. Restart his blood pressure medicines and will watch closely. He was elevated at his stress test
[2017-06-27 16:12] LABS: Adenovirus Not Detected (Not Detect); Coronavirus 229E Not Detected (Not Detect); Coronavirus HKU1 Not Detected (Not Detect); Coronavirus NL63 Not Detected (Not Detect); Coronavirus OC43 Not Detected (Not Detect)
[2017-06-27 16:13] LABS: Bordetella Pertussis Not Detected (Not Detect); Chlamydophila pneumoniae Not Detected (Not Detect); Human Metapneumovirus ***DETECTED*** (Not Detect); Human Rhinovirus/Enterovirus Not Detected (Not Detect); Influenza A Subtype 2009 H1 Not Detected (Not Detect); Influenza A Untypeable Not Detected (Not Detect); Influenza B Not Detected (Not Detect); Mycoplasma pneumoniae Not Detected (Not Detect); Parainfluenza Virus 1 Not Detected (Not Detect); Parainfluenza Virus 2 Not Detected (Not Detect); Parainfluenza Virus 3 Not Detected (Not Detect); Parainfluenza Virus 4 Not Detected (Not Detect); Respiratory Syncytial Virus Not Detected (Not Detect)
--- NOTE | 2017-06-27 19:58 | Electrocardiograph Report ---
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
[2017-06-28] MEDS: *HR* Heparin 5,000 UNIT/ML VIAL SQ SCH (04:39)
[2017-06-28] MEDS: 0.9 % Sodium Chloride w KCl 20 MEQ/1,000 ML MLS IVC SCH (04:39)
[2017-06-28 04:45] LABS: Hematocrit 41.9 % (37.5-50.1); Hemoglobin 13.9 g/dL (12.9-16.9); Mean Corpuscular HGB Conc 33.2 g/dL (31.6-35.5); Mean Corpuscular Hemoglobin 29.2 pg (28.0-33.3); Mean Platelet Volume 10.5 fL (9.4-12.4); Platelet Count 151 K/mcL (140-400); Red Blood Count 4.76 M/mcL (4.19-5.50); Red Cell Distribution Width 12.6 % (11.5-14.5)
[2017-06-28] MEDS ORDERED: Ondansetron 4 MG/2 ML VIAL IVP PRN (04:45)
[2017-06-28 05:04] LABS: BUN/Creatinine Ratio 13 (6-26); Blood Urea Nitrogen 11 mg/dL (6-20); Calcium 9.1 mg/dL (8.6-10.3); Carbon Dioxide 24 mEq/L (23-29); Chloride 104 mEq/L (98-107); Glucose 120 mg/dL (70-105); Osmolality,Calculated 283 (280-300); Potassium 3.8 mEq/L (3.5-5.1); Sodium 136 mEq/L (136-145); eGFR For African Americans > 60 (> 60); eGFR For Non-African Americans > 60 (> 60)
[2017-06-28] MEDS ORDERED: Regadenoson 0.4 MG/5 ML SYRINGE IVP ONE (05:53)
[2017-06-28 11:27] VITALS: BP 167/113
[2017-06-28] MEDS: *HR* Ticagrelor 90 MG TABLET PO SCH (11:48)
[2017-06-28] MEDS: amLODIPine 5 MG TABLET PO SCH (11:48)
[2017-06-28] MEDS: Aspirin Enteric Coated 81 MG Tablet PO SCH (11:48)
--- NOTE | 2017-06-28 14:07 | Cardiology Consult Note ---
Date of Encounter: 06/28/17 Time of Encounter: 14:00 Assessment and Plan (1) Abnormal nuclear stress test Current Visit: Yes Status: Acute Per Cardiology: ST showed: Impression: Low level exercise/ pharmacologic stress ECG is negative for ischemia at level of heart rate achieved. Gated EF = 54%. Small sized, mild intensity, reversibly inferior perfusion defect possibly due to ischemia. Troponins negative 4. Atypical presentation in setting of URI. Echo showed EF preserved 55-60%, NSWMA. Catheterization from November 2016 reviewed: At that point patient had PTCA with drug-eluting stent to mid circumflex 95% lesion and PTCA with drug-eluting stent to mid RCA 95% lesion. Has remaining left main nonobstructive 40% and mid LAD nonobstructive 50% lesions. Has severe diagonal 2 80% lesion-- small vessel being medically managed. Reviewed and discussed with Dr. Aly Zamorano and Dr. Baron. I discussed and reviewed with patient and family and we discussed medical management/monitoring observing versus left heart catheterization. At this point they are agreeable to long acting nitrate and follow-up in outpatient setting to reevaluate once recovers from upper respiratory infection. All questions answered. Cardiology will sign off, reconsult as needed, follow-up arranged. Patient on aspirin, Brilinta, statin, beta annmarie, ARB. Again adding long-acting nitrate. Discussion w patient/family: The assessment and plan as outlined above was discussed with the patient and/or family members who expressed understanding and agreement. All questions were answered. Thank you for involving us in the care of your patient. Please call with any questions. History of Present Illness Consult date: 06/28/17 Requesting physician: Lisa Poole Consult reason: Abnormal Nuclear Stress test Chief complaint: CP History of present illness: Mr. Mcintyre is a 41 year old male with relevant past medical history of hypertension, hyperlipidemia, GERD, CAD. Last seen by Dr. Mijares 06/25/2017. Cardiology consult for abnormal stress test results and atypical chest pain. Patient reports over the past few days nasal/sinus congestion with "pink eye ". He reports right-sided earache and slight dizziness. He reports dry nonproductive cough. Reports some short of breath at rest. Reports some right- sided chest discomfort at rest. He reports symptoms not similar to experienced with his heart attack a few months ago. Prior to developing "cold" he had been stable with no symptoms. He reports compliance with medications. Denies any active bleeding or blood loss. Past Med Surg Social Fam HX - Past Medical History Attestation: Yes The following information was validated with the patient. Source: patient, old records reviewed, obtained from family Medical history: coronary artery disease, GERD, hyperlipidemia, hypertension, kidney stones, liver disease, myocardial infarction Psychiatric history: no psych history - Past Surgical History Surgical History: angioplasty/stent, appendectomy - Social History Smoking Status: Former smoker Smokeless Tobacco Status: No Alcohol use: none Drug use: none - Family History Father Adopted: No Family Member Ethnicity: Non- Living Status: Still Living Hx Family Cardiac Disorders: No Hx Family Respiratory Disorders: No Hx Family Cancer: No Hx Family GI Disorders: No Hx Family Endocrine Disorder: Yes (diabetes) Hx Family Neuromuscular Disorders: No Hx Family Neurologic Disorders: No Hx Family HEENT Disorders: No Hx Family Autoimmune Disorders: No Mother Living Status: Hx Family Cardiac Disorders: No Hx Family Respiratory Disorders: No Hx Family Cancer: Yes Hx Family GI Disorders: No Hx Family Endocrine Disorder: Yes (diabetes) Hx Family Neuromuscular Disorders: No Hx Family Neurologic Disorders: No Hx Family HEENT Disorders: No Hx Family Autoimmune Disorders: No Medications and Allergies Amlodipine Besylate 10 mg PO DAILY 12/01/16 [History] Aspirin Enteric Coated [Aspirin EC] 81 mg PO DAILY #30 12/03/16 [Rx] Carvedilol [Coreg] 12.5 mg PO BIDWM #120 tab 12/03/16 [Rx] Nitroglycerin 0.4 mg SL Q5MIN PRN #30 12/03/16 [Rx] Rosuvastatin [Crestor] 40 mg PO HS #30 tab 12/03/16 [Rx] Ticagrelor [Brilinta] 90 mg PO BID #60 tab 12/03/16 [Rx] Losartan Potassium [Cozaar] 50 mg PO DAILY 06/27/17 [History] Amoxicillin/Clavulanate [Augmentin] 875 mg PO BIDWM #12 tablet 06/28/17 [Rx] GuaiFENesin ER [Mucinex] 600 mg PO BID tbbp.12hr 06/28/17 [Rx] Isosorbide MONOnitrate (24 HR) [Imdur] 30 mg PO DAILY #30 tab.er.24h 06/28/17 [ Rx] 3 Allergy/AdvReac Type Severity Reaction Status Date / Time No Known Allergies Allergy Verified 12/19/16 14:10 All Systems Review: The remainder of the systems were reviewed and are negative - Cardiovascular Cardiovascular: as per HPI Physical Examination Vital Signs, Last 4 Hours Temp Pulse Resp BP Pulse Ox 06/28/17 11:26 97.5 F L 80 15 167/113 98 General: Conversant, No Apparent Distress HEENT: Atraumatic, Normocephaly, Mucus Membranes Moist Neck: No JVD, Normal carotid pulses Cardiac: Reg Rate and Rhythm, Normal S1 and S2, No Murmur Lungs: Normal Breath Sounds, No Wheeze, Rales, Rhonchi Neuro: Alert and responsive, No focal deficits noted Abdomen: Soft, Non-Tender Skin: No rashes noted on visualized skin Musculoskeletal: No Chest Wall Tenderness Extremities: No Clubbing, No Cyanosis, No Edema, Normal Pulses Results 06/28/17 04:28 06/28/17 04:28 Lab Results Laboratory Tests 06/26/17 06/26/17 06/27/17 21:12 21:36 06:41 INR 1.2 Creatinine Est GFR (Non-Af Amer) Troponin I < 0.03 < 0.03 Human Metapneumovir PCR 06/27/17 06/27/17 06/27/17 12:17 14:40 18:18 INR Creatinine Est GFR (Non-Af Amer) Troponin I < 0.03 < 0.03 Human Metapneumovir PCR DETECTED A 06/28/17 04:28 INR Creatinine 0.86 Est GFR (Non-Af Amer) > 60 Troponin I Human Metapneumovir PCR ITS Impressions Chest X-Ray 06/26/17 21:29 IMPRESSION: No acute process. D/ / Rashmi Alvarez MD / Rashmi Alvarez MD Interpreting Provider: Rashmi Alvarez MD Echocardiogram Limited Views 06/27/17 08:13 Impressions: LVEF 55-60%. Normal LV chamber size and function. Mild concentric left ventricular hypertrophy. Left Ventricular Wall Motion: Rest Echo Findings All wall segments showed normal motion. Findings: Study Quality * Technically adequate exam. ECG Findings * Normal sinus rhythm. Left Ventricle * LVEF 55-60%. * Normal LV chamber size and function. * Mild concentric left ventricular hypertrophy. Right Ventricle * Normal right ventricular structure and function. Left Atrium * Moderately dilated left atrium. Right Atrium * Mildly dilated right atrium. Aorta * Normally sized aortic root. Pericardium * The pericardium appears normal. IVC * Normal IVC dimensions and inspiratory collapse. Active Medications Acetaminophen (Tylenol) 650 mg PO Q6HR PRN PRN Reason: Mild Pain/Fever Stop: 12/27/17 06:18 Last Admin: 06/28/17 04:52 Dose: 650 mg Amlodipine Besylate (Norvasc) 10 mg PO DAILY [facility] Stop: 12/27/17 12:01 Last Admin: 06/28/17 11:48 Dose: 10 mg Amoxicillin/Clavulanate Potassium (Augmentin) 875 mg PO BIDWM [facility] Stop: 12/27/17 17:01 Last Admin: 06/28/17 11:48 Dose: 875 mg Aspirin (Aspirin Ec) 81 mg PO DAILY [facility] Stop: 12/27/17 09:01 Last Admin: 06/28/17 11:48 Dose: 81 mg Carvedilol (Coreg) 12.5 mg PO BIDWM [facility] PRN Reason: Protocol Stop: 12/27/17 08:01 Last Admin: 06/28/17 11:48 Dose: 12.5 mg Guaifenesin (Mucinex) 600 mg PO BID [facility] Stop: 12/27/17 14:16 Last Admin: 06/28/17 11:49 Dose: 600 mg Heparin Sodium (Porcine) (Heparin) 5,000 unit SQ Q8HCO [facility] Stop: 12/27/17 06:31 Last Admin: 06/28/17 04:39 Dose: 5,000 unit Isosorbide Mononitrate (Imdur) 30 mg PO DAILY [facility] Stop: 12/29/17 09:01 Losartan Potassium (Cozaar) 25 mg PO DAILY [facility] PRN Reason: Protocol Stop: 12/26/17 23:01 Last Admin: 06/28/17 12:38 Dose: Not Given Losartan Potassium (Cozaar) 50 mg PO DAILY [facility] Stop: 12/27/17 12:01 Last Admin: 06/28/17 11:48 Dose: 50 mg Naloxone HCl (Narcan) 0.4 mg IVP Q2MIN PRN PRN Reason: SEE COMMENTS Stop: 12/27/17 06:18 Nitroglycerin (Nitroglycerin) 0.4 mg SL Q5MIN PRN PRN Reason: Chest Pain Stop: 12/27/17 06:21 Ondansetron HCl (Zofran) 4 mg IVP Q6HR PRN; Protocol PRN Reason: Nausea And Vomiting Stop: 12/28/17 04:46 Last Admin: 06/28/17 04:52 Dose: 4 mg Oxycodone HCl (Roxicodone) 10 mg PO Q6HR PRN; Protocol PRN Reason: Chest Pain Stop: 12/27/17 01:35 Last Admin: 06/27/17 08:01 Dose: 10 mg Rosuvastatin Calcium (Crestor) 40 mg PO HS [facility]ERY[facility] Stop: 12/27/17 21:01 Last Admin: 06/27/17 20:13 Dose: 40 mg Ticagrelor (Brilinta) 90 mg PO BID [facility] Stop: 12/27/17 09:01 Last Admin: 06/28/17 11:48 Dose: 90 mg - Imaging and Cardiology Stress Test: report reviewed Echo: report reviewed Cardiac cath: report reviewed - EKG Interpretation EKG results cardiology: personally reviewed, normal ECG, sinus rhythm, no diagnostic ischemia Consult Discharge Plan - Plan Instructions: Amoxicillin/Clavulanate Potassium (By mouth), Isosorbide Mononitrate (By mouth), Chest Pain (DC) Referrals: Mary Cortes MD [Non-Partnered Physician] - (Patient states that he has a follow up appointment on July 26 with [facility] but is unsure of the physicians name.) Prescriptions: Amoxicillin/Clavulanate [Augmentin] 875 mg PO BIDWM #12 tablet Isosorbide MONOnitrate (24 HR) [Imdur] 30 mg PO DAILY #30 tab.er.24h
--- NOTE | 2017-06-28 15:00 | Discharge Summary ---
- NOTES TO OUTPATIENT PROVIDER Notes to Outpatient Provider: Follow-up with cardiology as directed, Imdur per cardiology dosing Orders not resulted at time of discharge: Pending orders 06/27/17 08:12 NM verna perf SPECT multi [NM] Routine 06/28/17 06:00 ECG 12 lead ECG [ECG] AM 0600 Date of Encounter: 06/28/17 Time of Encounter: 14:57 - Discharge Diagnosis (1) Chest pain Priority: Primary Status: Acute Comments: Patient presented with chest pain. He had a stress test completed in 2 days. Impression was low level exercise pharmacological stress ECG is negative for ischemia at level of heart rate achieved Gaited EF equals 54% Small sized, mild intensity, reversibly inferior perfusion defect possibly due to ischemia Cardiology saw the patient Adjusting medications Follow-up with cardiology as per their recommendations Troponins were negative The patient with history of heart catheter and stent placement Qualifiers: Chest pain type: chest pain due to myocardial ischemia Ischemic chest pain type: stable angina pectoris Qualified Code(s): I20.8 - Other forms of angina pectoris (2) HLD (hyperlipidemia) Priority: Primary Status: Chronic Comments: Continue statin Qualifiers: Hyperlipidemia type: mixed hyperlipidemia Qualified Code(s): E78.2 - Mixed hyperlipidemia (3) HTN (hypertension) Priority: Primary Status: Chronic Comments: Pressure was poorly controlled during his hospitalization with management as per cardiology team Qualifiers: Hypertension type: essential hypertension Qualified Code(s): I10 - Essential (primary) hypertension (4) Tobacco abuse Priority: Primary Status: Chronic Comments: Cessation advised (5) Viral upper respiratory illness Priority: Primary Status: Acute Comments: Viral panel positive for human metapneumovir Treat symptomatically Continue Mucinex We will complete a 6 day course of Augmentin secondary to otitis media (6) Otitis media Priority: Primary Status: Acute Comments: augmentin Qualifiers: Otitis media type: unspecified Qualified Code(s): H66.90 - Otitis media, unspecified, unspecified ear Hospital course: Mr. Mcintyre is a 41 year old male admitted with chest wall pain and a viral illness. Stress test was completed and was abnormal please see details in assessment and plan. Discharge discussed with: patient, family, nurse, garden consultant - Time Spent with Patient Total time spent providing and/or coordinating discharge services: Less than 30 minutes - Discharge Medications Prescriptions: Amoxicillin/Clavulanate [Augmentin] 875 mg PO BIDWM #12 tablet Isosorbide MONOnitrate (24 HR) [Imdur] 30 mg PO DAILY #30 tab.er.24h Home Medications: Amlodipine Besylate 10 mg PO DAILY 12/01/16 [History] Aspirin Enteric Coated [Aspirin EC] 81 mg PO DAILY #30 12/03/16 [Rx] Carvedilol [Coreg] 12.5 mg PO BIDWM #120 tab 12/03/16 [Rx] Nitroglycerin 0.4 mg SL Q5MIN PRN #30 12/03/16 [Rx] Rosuvastatin [Crestor] 40 mg PO HS #30 tab 12/03/16 [Rx] Ticagrelor [Brilinta] 90 mg PO BID #60 tab 12/03/16 [Rx] Losartan Potassium [Cozaar] 50 mg PO DAILY 06/27/17 [History] Amoxicillin/Clavulanate [Augmentin] 875 mg PO BIDWM #12 tablet 06/28/17 [Rx] GuaiFENesin ER [Mucinex] 600 mg PO BID tbbp.12hr 06/28/17 [Rx] Isosorbide MONOnitrate (24 HR) [Imdur] 30 mg PO DAILY #30 tab.er.24h 06/28/17 [ Rx] Allergies/Adverse Reactions: 3 Allergy/AdvReac Type Severity Reaction Status Date / Time No Known Allergies Allergy Verified 12/19/16 14:10 Date of admission: 06/26/17 23:21 Primary care physician: Delbert Foreman, Consults: 06/28/17 13:40 Consult to Cardiology [CONS] Routine Comment: Consulting Provider: Cardiology Shawna Reason for Consult: abnormal stress, known history CAD Time Notified: 13:41 Call Completed: Yes Discharging clinician: Lisa Poole Anticipated date of discharge: 06/28/17 - Constitutional Vitals: Temp Pulse Resp BP Pulse Ox 97.5 F L 80 15 167/113 98 06/28/17 11:26 06/28/17 11:26 06/28/17 11:26 06/28/17 11:26 06/28/17 11:26 General appearance: Present: cooperative, A&O X 3, pleasant, obese, answers questions appropriately - Head Head exam: Present: atraumatic, normocephalic - Eye Eye exam: Present: PERRL, conjuntiva pink, sclera anicteric Pupils: Present: PERRL - Neck Neck exam general surgery: Present: supple, trachea midline. Absent: lymphadenopathy - Respiratory Respiratory exam: Present: CTAB. Absent: accessory muscle use, rales, rhonchi, wheezes - Cardiovascular Cardiovascular exam: Present: RRR, +S1, +S2. Absent: diastolic murmur, gallop, rubs, systolic murmur - GI/Abdominal GI/Abdominal exam: Present: normal bowel sounds, soft, no peritoneal signs. Absent: distended, tenderness - Extremities Exam Extremities exam: Present: warm, radial pulses palpable and symmetrical. Absent : calf tenderness, cyanotic, pedal edema - Neurological Exam Neurological exam: Present: alert, CN II-XII intact, oriented X3, no focal deficits. Absent: pronater drift, facial droop, speech deficit - Skin Skin exam: Present: dry, intact, normal color, warm - Patient Status Disposition: Home, Self-Care Condition: Fair Functional capacity at discharge: independent ambulation Overall status at discharge: patient is back to baseline - Discharge Instructions Instructions: Amoxicillin/Clavulanate Potassium (By mouth), Isosorbide Mononitrate (By mouth), Chest Pain (DC) Follow Up With: Mary Cortes MD [Non-Partnered Physician] - (Patient states that he has a follow up appointment on July 26 with [facility] but is unsure of the physicians name.) - Diet and Activity Activity: resume usual activities as tolerated Diet: low fat, low cholesterol, low salt diet
[2017-06-29] MEDS ORDERED: Isosorbide MONOnitrate (24 HR) 30 MG TAB.ER.24H PO SCH (09:00)
== END 2017-06-28 16:25 | disposition home or self-care (01) ==
LOC: EMEROO 20:21 → 3BNU 20:21
PROVIDERS: ADMIT Pediatrics; ATTEND Registered Nurse

== ENCOUNTER 2018-01-08 16:57 | Inpatient (IN) ==
[2018-01-08] MEDS ORDERED: Aspirin 81 MG TAB.CHEW PO ONE (17:23)
--- NOTE | 2018-01-08 17:24 | Emergency Department Note ---
Disposition Clinical Impression: Chest pain Qualifiers: Chest pain type: chest pain due to myocardial ischemia Ischemic chest pain type : stable angina pectoris Qualified Code(s): I20.8 - Other forms of angina pectoris Disposition: Admitted As Inpatient Condition: Good Referrals: Jona Moya MD [Primary Care Provider] - Forms: ED Satisfaction Letter Time of Disposition: 19:53 General Adult HPI - General Chief complaint: ED Chest Pain Stated complaint: CP x1 day Time Seen by Provider: 01/08/18 17:19 Source: patient Limitations: no limitations Nursing Notes Reviewed: Yes Vital Signs Reviewed: Yes - History of Present Illness HPI Narrative: Mr. Mcintyre is a 42 yo M with a PMH of [place] with 2 stents in 2017 presents with 24 hours of midsternal chest pressure at rest that is non-radiating, L arm paresthesia and L leg swelling that hasn't worsened or decreased. He states that he has only tried his daily meds to alter his symptoms. He states that his Extremities are nonpainful. He states that this is similar to his previous [place] but less severe. He states that he hasn't been in for cardio recently as they have cancelled his appointment twice. He denies changes to his vision, lightheadedness, dyspnea, Abd pain, N/V, changes to his baseline SOB, fever. Pain Scale: 3 - Related Data Home Medications Medication Instructions Recorded Confirmed Amlodipine Besylate 10 mg PO DAILY 12/01/16 06/27/17 Losartan Potassium [Cozaar] 50 mg PO DAILY 06/27/17 06/27/17 Previous Rx's Medication Instructions Recorded Aspirin Enteric Coated [Aspirin EC] 81 mg PO DAILY #30 12/03/16 Carvedilol [Coreg] 12.5 mg PO BIDWM #120 tab 12/03/16 Nitroglycerin 0.4 mg SL Q5MIN PRN #30 12/03/16 Rosuvastatin [Crestor] 40 mg PO HS #30 tab 12/03/16 Ticagrelor [Brilinta] 90 mg PO BID #60 tab 12/03/16 Isosorbide MONOnitrate (24 HR) 30 mg PO DAILY #30 tab.er.24h 06/28/17 [Imdur] Allergies Allergy/AdvReac Type Severity Reaction Status Date / Time No Known Allergies Allergy Verified 12/19/16 14:10 All systems ED: reviewed and negative except as stated. Review of Systems: As Per HPI Constitutional: Denies: fever, chills Cardiovascular: Reports: chest pain (Left-sided aching sensation radiates down his left arm and up to his left neck. Tried any medication make it better. Started at rest. Constant.). Denies: palpitations, syncope Respiratory: Denies: cough, dyspnea Gastrointestinal: Denies: abdominal pain, nausea, vomiting, diarrhea Genitourinary: Denies: urgency, dysuria, frequency Musculoskeletal: Reports: other (Left lower leg swelling has been getting worse over the past 2 days.). Denies: back pain Integumentary: Denies: rash Neurological: Reports: weakness (Just not feeling well over the past couple days.) Endocrine: Reports: fatigue Past Medical History - Past Medical History Attestation: Yes The following information was validated with the patient. Source: patient Medical history: Reports: coronary artery disease, GERD, hyperlipidemia, hypertension, kidney stones, liver disease, myocardial infarction Surgical history: Reports: angioplasty/stent, appendectomy Psychiatric history: Reports: no psych history - Social History Smoking Status: Former smoker Smokeless Tobacco Status: No Alcohol use: Reports: none Drug use: Reports: none Physical Exam - General Limitations: no limitations General appearance: alert, in no apparent distress - Head Head exam: atraumatic, normocephalic, normal inspection - Eye Eye exam: Present: normal appearance, PERRL, EOMI - ENT ENT exam: normal exam, normal oropharynx, mucous membranes moist - Neck Neck exam: Present: normal inspection, full ROM, trachea midline - Chest Chest inspection: Present: normal inspection, symmetric chest wall rise - Respiratory Respiratory exam: Present: normal lung sounds bilaterally. Absent: respiratory distress, accessory muscle use - Cardiovascular Cardiovascular exam: Present: regular rate, normal rhythm, normal heart sounds. Absent: systolic murmur, diastolic murmur - Abdominal Exam Abdominal exam: Present: soft, Non-Tender. Absent: tenderness, distention, guarding, rebound, rigidity, organomegaly - Extremities Exam Extremities exam: Present: full ROM, other (Left lower extremity swelling worse than the right. Not pitting.). Absent: tenderness, joint swelling, calf tenderness - Back Exam Back exam: Present: normal inspection, full ROM. Absent: tenderness - Neurological Exam Neurological exam: Present: alert, oriented X3 - Psychiatric Psychiatric exam: Present: normal affect - Skin Skin exam: Present: warm, intact, normal color, diaphoresis (mildly) Course Course Narrative: Patient with a significant cardiac history presenting with chest pain and left arm pain that occasionally radiates to his neck and has some periodic diaphoresis while here. We will admit patient to the hospital for follow-up ACS rule out. Lab work here was unremarkable EKG showed no signs of acute ischemia. However the concern is for the patient's significant cardiac history. Patient reports that he was a smoker however is no longer a smoker. Pain started while he was at rest. No significant shortness of breath associated with it but does report fatigue over the past 3 days. He did have significant three-vessel disease on previous catheter and has 2 stents placed. He is on Brilinta as well as Plavix and states he has been taking them and has not missed any doses. - Consultations Consultation #1: Hospitalist accepted Pt in stable condition. Time: 19:56 Vital Signs Temperature 98.1 F 01/08/18 17:10 Pulse Rate 64 01/08/18 17:10 Respiratory Rate 16 01/08/18 17:10 Blood Pressure 149/103 01/08/18 17:10 O2 Sat by Pulse Oximetry 98 01/08/18 17:10 Temperature 98.1 F 01/08/18 17:10 Pulse Rate 64 01/08/18 17:10 Respiratory Rate 16 01/08/18 17:10 Blood Pressure 149/103 01/08/18 17:10 O2 Sat by Pulse Oximetry 98 01/08/18 17:10 Oxygen Delivery Oxygen Delivery Room Air Medical Decision Making - Medical Records Medical records reviewed: Yes I reviewed the patient's medical records. - Lab Data Lab results reviewed: Yes I reviewed the patient's lab results. Result diagrams: 01/08/18 17:39 01/08/18 17:39 Lab Results 01/08/18 01/08/18 Range/Units 17:39 17:39 WBC 5.9 (4.3-11.1) K/mcL RBC 4.41 (4.19-5.50) M/mcL Hgb 13.1 (12.9-16.9) g/dL Hct 37.8 (37.5-50.1) % MCV 85.7 (83.0-100.0) fL MCH 29.7 (28.0-33.3) pg MCHC 34.7 (31.6-35.5) g/dL RDW 12.0 (11.5-14.5) % Plt Count 166 (140-400) K/mcL MPV 10.6 (9.4-12.4) fL Immature Gran % 0.2 (0-4) % Seg Neutrophils % 60.4 % Lymphocytes % 31.1 % Monocytes % 5.4 % Eosinophils % 2.4 % Basophils % 0.5 % Neutrophils # 3.6 (1.6-8.9) K/mcL Lymphocytes # 1.8 (0.6-4.6) K/mcL Monocytes # 0.3 (0.0-1.3) K/mcL Eosinophils # 0.1 (0.0-0.6) K/mcL Basophils # 0.0 (0.0-0.2) K/mcL Sodium 139 (136-145) mEq/L Potassium 3.5 (3.5-5.1) mEq/L Chloride 105 (98-107) mEq/L Carbon Dioxide 30 H (23-29) mEq/L BUN 11 (6-20) mg/dL Creatinine 1.09 (0.70-1.30) mg/dL Est GFR ( Amer) > 60 (> 60) Est GFR (Non-Af Amer) > 60 (> 60) BUN/Creatinine Ratio 10 (6-26) Glucose 108 H (70-105) mg/dL Calculated Osmolality 288 (280-300) Calcium 9.3 (8.6-10.3) mg/dL Troponin I < 0.03 (< 0.04) ng/mL - Radiology Data Radiology results reviewed: Yes I reviewed the patient's radiology results. Chest X-Ray 01/08/18 17:23 IMPRESSION: No acute process. D/ / Selam Weinstein MD / Selam Weinstein MD Interpreting Provider: Selam Weinstein MD - EKG Data EKG #1 EKG attestation: Yes I reviewed and interpreted this EKG. EKG results narrative: Normal sinus rhythm at a rate of 62. MO interval is 191. QRS duration is 14. QT is 384. QTC is 388. No signs of acute ischemia. Patient does have T-wave inversion in leads 3. EKG #2 EKG attestation: Yes I reviewed and interpreted this EKG. EKG results narrative: Sinus bradycardia at a rate of 59. MO interval is 198. QRS duration is 109. QT is 425. QTC is 421. No signs of acute ischemia. Heart Score - Score History: Moderately Suspicious EKG: Non Specific repolarisation Disturbance Age: Less than 45 Risk Factors: Equal/Greater than 3 risk factor or history of atherosclerotic disease Troponin: Less than normal limit HEART Score Total: 4
[2018-01-08 17:52] LABS: Basophils % 0.5 %; Eosinophils # 0.1 K/mcL (0.0-0.6); Eosinophils % 2.4 %; Hematocrit 37.8 % (37.5-50.1); Hemoglobin 13.1 g/dL (12.9-16.9); Immature Granulocytes % 0.2 % (0-4); Lymphocytes # 1.8 K/mcL (0.6-4.6); Lymphocytes % 31.1 %; Mean Corpuscular HGB Conc 34.7 g/dL (31.6-35.5); Mean Corpuscular Hemoglobin 29.7 pg (28.0-33.3); Mean Corpuscular Volume 85.7 fL (83.0-100.0); Mean Platelet Volume 10.6 fL (9.4-12.4); Monocytes # 0.3 K/mcL (0.0-1.3); Monocytes % 5.4 %; Neutrophils # 3.6 K/mcL (1.6-8.9); Platelet Count 166 K/mcL (140-400); Red Blood Count 4.41 M/mcL (4.19-5.50); Segmented Neutrophils % 60.4 %
[2018-01-08] MEDS ORDERED: Nitroglycerin 0.4 MG TAB.SUBL SL PRN ×2 (17:57→20:36)
[2018-01-08 18:16] LABS: BUN/Creatinine Ratio 10 (6-26); Blood Urea Nitrogen 11 mg/dL (6-20); Calcium 9.3 mg/dL (8.6-10.3); Carbon Dioxide 30 mEq/L (23-29); Chloride 105 mEq/L (98-107); Glucose 108 mg/dL (70-105); Osmolality,Calculated 288 (280-300); Potassium 3.5 mEq/L (3.5-5.1); Sodium 139 mEq/L (136-145); Troponin I < 0.03 ng/mL (< 0.04); eGFR For Non-African Americans > 60 (> 60)
--- NOTE | 2018-01-08 20:30 | Internal Med History&Physical ---
Date of Encounter: 01/08/18 Time of Encounter: 20:27 Internal Medicine - H&P: HPI Chief complaint: chest pain Admitted From: Emergency Dept Plans for Post Hospital Care: Home History of present illness: Mr. Mcintyre is a 42 year old male Patient with history of CAD had NH november 2016 had stent placed mid left circumflex and also RCA and residual left main 40% and severe diagonal stenosis that is small vessel. Patient also has history of high cholesterol, hypertension, GERD, and kidney stone. Patient presented emergency room with chest pain that started yesterday described as heaviness thre most of the time gets some relief and then the chest pain comes back again no relationship to activity . has felt tired since yesterday mild sweats. Emergency room evaluation blood pressure is normal troponin is negative patient admitted for further cardiac evaluation. Past Med Surg Social Fam HX - Past Medical History Medical history: coronary artery disease, GERD, hyperlipidemia, hypertension, kidney stones, liver disease, myocardial infarction Additional medical history: gout Psychiatric history: no psych history - Past Surgical History Surgical History: angioplasty/stent, appendectomy Additional surgical history: Kidney stone removal - Social History Smoking Status: Former smoker Smokeless Tobacco Status: No Alcohol use: none Drug use: none - Family History Father Adopted: No Family Member Ethnicity: Non- Living Status: Still Living Hx Family Cardiac Disorders: No Hx Family Respiratory Disorders: No Hx Family Cancer: No Hx Family GI Disorders: No Hx Family Endocrine Disorder: Yes (diabetes) Hx Family Neuromuscular Disorders: No Hx Family Neurologic Disorders: No Hx Family HEENT Disorders: No Hx Family Autoimmune Disorders: No Mother Living Status: Hx Family Cardiac Disorders: No Hx Family Respiratory Disorders: No Hx Family Cancer: Yes Hx Family GI Disorders: No Hx Family Endocrine Disorder: Yes (diabetes) Hx Family Neuromuscular Disorders: No Hx Family Neurologic Disorders: No Hx Family HEENT Disorders: No Hx Family Autoimmune Disorders: No Internal Medicine - H&P: Meds Amlodipine Besylate 10 mg PO DAILY 12/01/16 [History] Aspirin Enteric Coated [Aspirin EC] 81 mg PO DAILY #30 12/03/16 [Rx] Carvedilol [Coreg] 12.5 mg PO BIDWM #120 tab 12/03/16 [Rx] Nitroglycerin 0.4 mg SL Q5MIN PRN #30 12/03/16 [Rx] Rosuvastatin [Crestor] 40 mg PO HS #30 tab 12/03/16 [Rx] Ticagrelor [Brilinta] 90 mg PO BID #60 tab 12/03/16 [Rx] Losartan Potassium [Cozaar] 50 mg PO DAILY 06/27/17 [History] Isosorbide MONOnitrate (24 HR) [Imdur] 30 mg PO DAILY #30 tab.er.24h 06/28/17 [ Rx] 3 Allergy/AdvReac Type Severity Reaction Status Date / Time No Known Allergies Allergy Verified 12/19/16 14:10 All Systems PM: A 10-system review of systems was performed and is negative for pertinent findings except as documented above in the HPI. - Constitutional Vitals: Temp Pulse Resp BP Pulse Ox 98.1 F 66 17 125/85 98 01/08/18 17:10 01/08/18 20:04 01/08/18 20:04 01/08/18 20:04 01/08/18 20:04 General appearance: Present: pleasant Exam: done - Head Head exam: Present: atraumatic, normocephalic - Eye Eye exam: Present: PERRL, conjuntiva pink, sclera anicteric Pupils: Present: PERRL - Neck Neck exam general surgery: Present: supple, trachea midline. Absent: lymphadenopathy - Respiratory Respiratory exam: Present: CTAB. Absent: accessory muscle use, rales, rhonchi, wheezes - Cardiovascular Cardiovascular exam: Present: RRR, +S1, +S2. Absent: diastolic murmur, gallop, rubs, systolic murmur - GI/Abdominal GI/Abdominal exam: Present: normal bowel sounds, soft, no peritoneal signs. Absent: distended, tenderness - Extremities Exam Extremities exam: Present: warm, radial pulses palpable and symmetrical. Absent : calf tenderness, cyanotic, pedal edema - Neurological Exam Neurological exam: Present: CN II-XII intact, oriented X3, no focal deficits. Absent: pronater drift, facial droop, speech deficit - Skin Skin exam: Present: dry, intact Internal Med - H&P Results - Labs CBC & Chem 7: 01/08/18 17:39 01/08/18 17:39 - Assessment and plan (1) Chest pain Current Visit: Yes Status: Acute Assessment and plan: Chest pain in the patient with yolande CAD prior stents 2016 despite prolonged chest pains since yesterday troponin is negative Differential will be severe reflux esophagitis will consult cardiology we changed his Prilosec to Protonix Qualifiers: Chest pain type: unspecified Qualified Code(s): R07.9 - Chest pain, unspecified (2) HLD (hyperlipidemia) Current Visit: No Status: Chronic Assessment and plan: check in am Qualifiers: Hyperlipidemia type: pure hypercholesterolemia Qualified Code(s): E78.00 - Pure hypercholesterolemia, unspecified; E78.0 - Pure hypercholesterolemia (3) HTN (hypertension) Current Visit: No Status: Chronic Assessment and plan: well copntrolled Qualifiers: Hypertension type: essential hypertension Qualified Code(s): I10 - Essential (primary) hypertension (4) Tobacco abuse Current Visit: No Status: Chronic Assessment and plan: chronic - Time Spent With Patient Total time spent is greater than 50% in coordination of care (as documented) at patient's floor/unit and/or counseling patient:
[2018-01-08] MEDS ORDERED: Naloxone 0.4 MG/ML INJ IVP PRN (20:35)
[2018-01-08] MEDS: *HR* Ticagrelor 90 MG TABLET PO SCH (23:17)
[2018-01-09 01:53] LABS: Chol/HDL Ratio 3.3 (0-4.9)
--- NOTE | 2018-01-09 08:32 | Internal Med Progress Note ---
Hospitalist Progress Note - Encounter Date of Encounter: 01/09/18 Time of Encounter: 08:00 - Subjective Interval History: No acute events overnight - Exam Vitals: Temp Pulse Resp BP Pulse Ox 98.2 F 53 15 148/84 98 01/09/18 07:25 01/09/18 07:25 01/09/18 07:25 01/09/18 07:25 01/09/18 07:25 Exam: Gen - Awake, alert, oriented x 3, no acute distress HEENT - NCAT, PERRLA, EOMI, hearing grossly intact, oropharynx benign CV - RRR, normal S1 and S2, no M/R/G, no BLE edema Resp - Normal WOB, CTAB, no W/R/R GI - Soft, NT/ND, no masses, normal bowel sounds, Skin - Warm, dry, no rashes/lesions/ulcers Psych - Normal mood and affect, no depression or anxiety - Assessment and Plan (1) Unstable angina Current Visit: Yes Status: Acute Assessment and Plan: Pt had chest pain at rest with history of CAD in 2016. Had an abnormal stress test in june 2017 Cardiology consulted and plan for cath today. NPO now (2) Abnormal nuclear stress test Current Visit: No Status: Acute Assessment and Plan: Plan for cath today (3) HLD (hyperlipidemia) Current Visit: No Status: Chronic Assessment and Plan: Continue statin (4) Morbid obesity Current Visit: Yes Status: Acute Assessment and Plan: Diet and exercise (5) HTN (hypertension) Current Visit: No Status: Chronic Assessment and Plan: Cotninue home meds (6) Coronary artery disease Current Visit: Yes Status: Acute Assessment and Plan: HAs CAD s/p stent in 2016. Continue on aspirin, brillinta , statin and beta annmarie For cath today (7) DVT prophylaxis Current Visit: No Status: Acute Assessment and Plan: Heparin sc - Time Spent with Patient Total time spent is greater than 50% in coordination of care (as documented) at patient's floor/unit and/or counseling patient: Internal Medicine: Result - Labs CBC & Chem 7: 01/08/18 17:39 01/08/18 17:39 Labs: Cardiac Enzymes 01/09/18 01/09/18 Range/Units 00:27 06:48 Troponin I < 0.03 < 0.03 (< 0.04) ng/mL Consult Discharge Plan - Plan Referrals: Jona Moya MD [Primary Care Provider] - (3) HLD (hyperlipidemia) Qualifiers: Hyperlipidemia type: pure hypercholesterolemia Qualified Code(s): E78.00 - Pure hypercholesterolemia, unspecified; E78.0 - Pure hypercholesterolemia (5) HTN (hypertension) Qualifiers: Hypertension type: essential hypertension Qualified Code(s): I10 - Essential (primary) hypertension (6) Coronary artery disease Qualifiers: Coronary Disease-Associated Artery/Lesion type: [place] artery [place] vs. transplanted heart: [place] heart Associated angina: with unstable angina Qualified Code(s): I25.110 - Atherosclerotic heart disease of [place] coronary artery with unstable angina pectoris
[2018-01-09] MEDS: Aspirin Enteric Coated 81 MG Tablet PO SCH (08:53)
[2018-01-09] MEDS: amLODIPine 5 MG TABLET PO SCH (08:53)
[2018-01-09] MEDS: *HR* Ticagrelor 90 MG TABLET PO SCH (08:53)
[2018-01-09] MEDS: Isosorbide MONOnitrate (24 HR) 30 MG TAB.ER.24H PO SCH (08:54)
--- NOTE | 2018-01-09 09:59 | Cardiology Consult Note ---
<Geovanny Longoria R - Last Filed: 01/09/18 09:59> Date of Encounter: 01/09/18 Time of Encounter: 09:58 Assessment and Plan (1) Unstable angina Current Visit: Yes Status: Acute CP at rest on Sunday, initially thought to be indigestion--midsternal/left sided. Associated with significant fatigue. Relief with nitro in ED. Troponins negative. EKG unchanged. TTE 06/2017 EF preserved. Known CAD hx with PCI to RCA and LCx 11/2016. Compliant with DAPT--ASA and Brilinta. Remaining lestions 40% left main, 50% mLAD, 80% 2nd diag (small vessel). Low level stress 06/2017 possible small area of inferior ischemia. Opted for medical management at that time. On ASA, Brilinta, Statin, BB, Imdur. Given symptoms, known CAD hx, and abnormal stress test recommend [facility] to further evaluate. R/B/A discussed. Pt agrees to proceed. LHC today. (2) Abnormal nuclear stress test Current Visit: No Status: Acute As above, small area of possible inferior ischemia on stress 06/2017. Opted for medical management at that time. Now with symptoms concerning for unstable angina. LHC today. (3) Coronary artery disease Current Visit: Yes Status: Acute CAD with NSTEMI 11/2016 GUZMAN to RCA and LCx. Remaining 40% LMCA, 50% mLAD, 80% 2nd diag. ASA, Brilinta, Statin, BB, Imdur. Qualifiers: Coronary Disease-Associated Artery/Lesion type: eagle artery [place] vs. transplanted heart: eagle heart Associated angina: with unstable angina Qualified Code(s): I25.110 - Atherosclerotic heart disease of eagle coronary artery with unstable angina pectoris Discussion w patient/family: The assessment and plan as outlined above was discussed with the patient and/or family members who expressed understanding and agreement. All questions were answered. Thank you for involving us in the care of your patient. Please call with any questions. I will discuss all the above with Dr. Baldwin and make changes as necessary. History of Present Illness Consult date: 01/09/18 Consult reason: CP Chief complaint: chest pain History of present illness: Mr. Mcintyre is a 42 year old male with PMH of CAD s/p NSTEMI 11/2016 s/p PCI RCA LCX GUZMAN w preserved EF, HTN, HLD, GERD. Residual left main 40% and severe diagonal stenosis that is small vessel. Pt presented to ED for CP that started Sunday while driving that he initially thought was reflux. He took tums without relief. Yesterday he woke up and the dull chest pain persisted accompanied with significant fatigue, prompting ED evaluation. Different than his prior anginal equivalent. Troponins negative. Cardiology consulted for further recs. Reports pain was relieved with nitro. Currently chest pain free. Stress test 06/2017 Small sized, mild intensity, reversibly inferior perfusion defect possibly due to ischemia. Opted for medical management at that time and Imdur was added. Prior CV testing: Stress test 06/2017: Low level exercise/ pharmacologic stress ECG is negative for ischemia at level of heart rate achieved. Gated EF = 54%. Small sized, mild intensity, reversibly inferior perfusion defect possibly due to ischemia. Limited TTE 06/2017:LVEF 55-60%. Normal LV chamber size and function. Mild concentric left ventricular hypertrophy. [facility] 11/2016: There is severe three vessel coronary artery disease. The left ventricle is normal and has normal contractility EF 55% Patient had successful PTCA/Drug-Eluting Stent placement in the mid RCA and Circ. Tortuous right subclavian Past Med Surg Social Fam HX - Past Medical History Medical history: coronary artery disease, GERD, hyperlipidemia, hypertension, kidney stones, liver disease, myocardial infarction Additional medical history: gout Psychiatric history: no psych history - Past Surgical History Surgical History: angioplasty/stent, appendectomy Additional surgical history: Kidney stone removal - Social History Smoking Status: Former smoker Smokeless Tobacco Status: No Alcohol use: none Drug use: none - Family History Father Adopted: [place]: Abrahan Mcintyre Age: 67 Family Member Ethnicity: Non- Living Status: Still Living Hx Family Cardiac Disorders: No Hx Family Respiratory Disorders: No Hx Family Cancer: No Hx Family GI Disorders: No Hx Family Endocrine Disorder: Yes (diabetes) Hx Family Neuromuscular Disorders: No Hx Family Neurologic Disorders: No Hx Family HEENT Disorders: No Hx Family Autoimmune Disorders: No Mother Name: Sophie Ramey Living Status: Age at : 65 Cause of : cancer Hx Family Cardiac Disorders: No Hx Family Respiratory Disorders: No Hx Family Cancer: Yes Hx Family GI Disorders: No Hx Family Endocrine Disorder: Yes (diabetes) Hx Family Neuromuscular Disorders: No Hx Family Neurologic Disorders: No Hx Family HEENT Disorders: No Hx Family Autoimmune Disorders: No Medications and Allergies Amlodipine Besylate 10 mg PO DAILY 12/01/16 [History] Aspirin Enteric Coated [Aspirin EC] 81 mg PO DAILY #30 12/03/16 [Rx] Carvedilol [Coreg] 12.5 mg PO BIDWM #120 tab 12/03/16 [Rx] Nitroglycerin 0.4 mg SL Q5MIN PRN #30 12/03/16 [Rx] Rosuvastatin [Crestor] 40 mg PO HS #30 tab 12/03/16 [Rx] Ticagrelor [Brilinta] 90 mg PO BID #60 tab 12/03/16 [Rx] Losartan Potassium [Cozaar] 50 mg PO DAILY 06/27/17 [History] Isosorbide MONOnitrate (24 HR) [Imdur] 30 mg PO DAILY #30 tab.er.24h 06/28/17 [ Rx] 3 Allergy/AdvReac Type Severity Reaction Status Date / Time No Known Allergies Allergy Verified 12/19/16 14:10 All Systems Review: The remainder of the systems were reviewed and are negative - Constitutional Constitutional: fatigue - Cardiovascular Cardiovascular: as per HPI, chest pain at rest, chest pain with exertion Physical Examination Vital Signs, Last 4 Hours Temp Pulse Resp BP Pulse Ox 01/09/18 09:02 98 01/09/18 07:25 98.2 F 53 15 148/84 98 Vital Signs Temp Pulse Resp BP Pulse Ox 01/09/18 09:02 98 01/09/18 07:25 98.2 F 53 15 148/84 98 01/09/18 02:49 98.1 F 57 16 150/80 98 01/09/18 00:07 97.5 F L 61 16 120/69 97 01/08/18 20:04 66 17 125/85 98 01/08/18 19:59 58 16 137/91 99 01/08/18 17:10 98.1 F 64 16 149/103 98 Intake and Output 01/08/18 01/09/18 01/09/18 23:59 07:59 15:59 Other: Weight 136.531 kg 135.9 kg Patient Weight 01/09/18 23:59 Weight 135.9 kg General: Conversant, No Apparent Distress HEENT: Atraumatic Neck: No JVD, Normal carotid pulses Cardiac: Reg Rate and Rhythm, Normal S1 and S2, No Murmur Lungs: Normal Breath Sounds, No Wheeze, Rales, Rhonchi Neuro: Alert and responsive, No focal deficits noted Abdomen: Soft, Non-Tender Skin: No rashes noted on visualized skin Musculoskeletal: No Chest Wall Tenderness Extremities: No Clubbing, No Cyanosis, No Edema, Normal Pulses Results 01/08/18 17:39 01/08/18 17:39 Lab Results 01/09/18 01/09/18 01/09/18 00:27 00:27 00:27 Magnesium 2.0 Troponin I < 0.03 B-Natriuretic Peptide 29 01/09/18 06:48 Magnesium Troponin I < 0.03 B-Natriuretic Peptide Short CBC 01/08/18 Range/Units 17:39 WBC 5.9 (4.3-11.1) K/mcL Hgb 13.1 (12.9-16.9) g/dL Hct 37.8 (37.5-50.1) % Plt Count 166 (140-400) K/mcL Neutrophils # 3.6 (1.6-8.9) K/mcL BMP 01/08/18 Range/Units 17:39 Sodium 139 (136-145) mEq/L Potassium 3.5 (3.5-5.1) mEq/L Chloride 105 (98-107) mEq/L Carbon Dioxide 30 H (23-29) mEq/L BUN 11 (6-20) mg/dL Creatinine 1.09 (0.70-1.30) mg/dL Glucose 108 H (70-105) mg/dL Calcium 9.3 (8.6-10.3) mg/dL Cardiac Enzymes 01/09/18 01/09/18 01/08/18 Range/Units 06:48 00:27 17:39 Troponin I < 0.03 < 0.03 < 0.03 (< 0.04) ng/mL Impressions Chest X-Ray 01/08/18 17:23 IMPRESSION: No acute process. D/ / Selam Weinstein MD / Selam Weinstein MD Interpreting Provider: Selam Weinstein MD Active Medications Acetaminophen (Tylenol) 650 mg PO Q6HR PRN PRN Reason: Mild Pain/Fever Stop: 07/10/18 20:36 Amlodipine Besylate (Norvasc) 10 mg PO DAILY [facility] Stop: 07/11/18 09:01 Last Admin: 01/09/18 08:53 Dose: 10 mg Aspirin (Aspirin Ec) 81 mg PO DAILY [facility] Stop: 07/11/18 09:01 Last Admin: 01/09/18 08:53 Dose: 81 mg Carvedilol (Coreg) 12.5 mg PO BIDWM MERYL PRN Reason: Protocol Stop: 07/11/18 08:01 Last Admin: 01/09/18 08:54 Dose: 12.5 mg Isosorbide Mononitrate (Imdur) 30 mg PO DAILY [facility] Stop: 07/11/18 09:01 Last Admin: 01/09/18 08:54 Dose: 30 mg Losartan Potassium (Cozaar) 50 mg PO DAILY [facility] Stop: 07/11/18 09:01 Last Admin: 01/09/18 08:54 Dose: 50 mg Naloxone HCl (Narcan) 0.4 mg IVP Q2MIN PRN PRN Reason: SEE COMMENTS Stop: 07/10/18 20:36 Nitroglycerin (Nitroglycerin) 0.4 mg SL Q5MIN PRN PRN Reason: Chest Pain Stop: 07/10/18 20:37 Rosuvastatin Calcium (Crestor) 40 mg PO HS [facility] Stop: 07/10/18 21:01 Last Admin: 01/08/18 23:17 Dose: 40 mg Ticagrelor (Brilinta) 90 mg PO BID [facility] Stop: 07/10/18 21:01 Last Admin: 01/09/18 08:53 Dose: 90 mg Tramadol HCl (Ultram) 50 mg PO Q6HR PRN PRN Reason: Moderate Pain Stop: 07/10/18 20:36 - Imaging and Cardiology Stress Test: report reviewed Echo: report reviewed Cardiac cath: report reviewed - EKG Interpretation EKG results cardiology: personally reviewed (SR) Consult Discharge Plan - Plan Referrals: Jona Moya MD [Primary Care Provider] - <Milton Baldwin A - Last Filed: 01/09/18 17:27> Date of Encounter: 01/09/18 - Attending Attestation I interviewed and examined the patient independently at the bedside and agree with the BUSINESS MACHINE OPERATOR's documentation. Patient with hx of CAD s/p PCI to LCx and mid RCA last year. NST in June revealed small inferior ischemia. Now presenting with unstable angina. For coronary angiogram today Assessment and Plan Discussion w patient/family: The assessment and plan as outlined above was discussed with the patient and/or family members who expressed understanding and agreement. All questions were answered. Thank you for involving us in the care of your patient. Please call with any questions. History of Present Illness History of present illness: Mr. Mcintyre is a 42 year old male All Systems Review: The remainder of the systems were reviewed and are negative Physical Examination Vital Signs, Last 4 Hours Temp Pulse Resp BP Pulse Ox 01/09/18 16:25 98 F 62 14 138/82 97 Results 01/08/18 17:39 01/08/18 17:39 Lab Results 01/09/18 01/09/18 01/09/18 00:27 00:27 00:27 Magnesium 2.0 Troponin I < 0.03 B-Natriuretic Peptide 29 01/09/18 01/09/18 06:48 10:58 Magnesium Troponin I < 0.03 < 0.03 B-Natriuretic Peptide
[2018-01-09] MEDS: traMADol 50 MG TABLET PO PRN ×2 (13:23→19:59)
[2018-01-09] MEDS ORDERED: Verapamil 5 MG/2 ML VIAL ONE (14:16)
[2018-01-09] MEDS ORDERED: Heparin 1,000 UNITS/500 mL 500 ML ONE (14:16)
[2018-01-09] MEDS ORDERED: *HR* Heparin 10,000 UNIT/10 ML VIAL ONE (14:16)
[2018-01-09] MEDS ORDERED: 0.9 % Sodium Chloride 1,000 ML ONE ×2 (14:16→15:33)
[2018-01-09] MEDS ORDERED: Nitroglycerin 1,000 MCG/10 ML VIAL IV ONE (14:17)
[2018-01-09] MEDS ORDERED: ISOVUE-370 200 ML INFUS..BTL IV ONE (14:17)
[2018-01-09] MEDS ORDERED: *HR* Midazolam HCl 2 MG/2 ML VIAL ONE ×2 (15:32→15:45)
[2018-01-09] MEDS ORDERED: *HR* FentaNYL (PF) 100 MCG/2 ML VIAL ONE (15:33)
--- NOTE | 2018-01-09 16:29 | Invasive Diagnostic Lab Proc ---
Name: Jeff Mcintyre Date of Study: 01/09/2018 Date: 1975 Ht: 70.0in Medical Record#: [id number] Age: 42 Wt: 299.61lb Gender: Male BSA: 2.48 Order #: [id number] BMI: 42.99 Physicians Procedure Physician: Charan Mijares MD, [facility] Referring MD: Referring MD: Staff Name Position Time In Delmy Chery RT (R) Scrub 02:19 PM Baldo Xie RN Monitor 02:19 PM Portia Reid RN Beam Dyer Operator 02:19 PM Indications Indication Abnormal Test - Stress Procedures Performed Procedure L HRT ARTERY/VENTRICLE ANGIO Pre-Procedure Checklist Informed consent is complete signed and on chart. H&P is on chart. ID band is on and ID verified with patient. Patient NPO for procedure The procedure was described for the patient and questions were answered. ECG is on chart. Plan of Care Patient will tolerate the procedure without complications. Adequate level of comfort will be maintained. Hemodynamics will remain stable Patient will recover from procedure without complications. Respiratory function will be maintained. Cardiac rhythm will remain stable. Patient temperature will be maintained. Patient and/or family have verbalized understanding of the procedure. Patient Education Chief Complaint/Reason for Test: Cardiac Cath Developmental Category: Adult (18-64 years) Developmentally Appropriate for Age: Yes Learning Barriers: None Education Needs: Procedure Education Method: Verbal Information Taught: Cardiac Cath Educational Evaluation: Able to repeat information Intravenous Access Time IV Size Location DC'd Fluid/Drip Rate Units RN 20g 1 /" Patent On Arrival Rt Antecubital 0.9NaCl Allergies No Known Allergies NKDA Vital Signs Time BP (mmHg) HR (bpm) O2 Sat. RR (bpm) LOC 03:35 PM / % 5 = Fully awake and oriented or at pre-proc level 03:35 PM / % 4 = Oriented but drowsy 03:32 PM 133 / 67 53 100 % 16 03:37 PM 136 / 75 59 100 % 13 03:42 PM 124 / 62 64 98 % 14 03:47 PM 118 / 55 59 100 % 20 03:51 PM 122 / 88 61 85 % 14 03:57 PM 117 / 79 72 94 % 13 04:02 PM 122 / 68 65 98 % 12 03:50 PM / % 4 = Oriented but drowsy Procedural Medications Time Medication Dose Units Method Given By 03:35 PM Oxygen 2 L/min nasal cannula Portia Reid RN 03:35 PM Versed 2 mg Intravenous Portia Reid RN 03:36 PM Fentanyl 50 mcg Intravenous Portia Reid RN 03:44 PM Versed 1 mg Intravenous Portia Reid RN 03:44 PM Fentanyl 25 mcg Intravenous Portia Reid RN 03:46 PM Lidocaine 2% 10 ml Subcutaneous Charan Mijares MD, [facility] ASA Classification: CLASS II- Mild systemic disease (i.e. well-controlled diabetes, hypertension, asthma, cigarette smoking) Gladys Score Preprocedure Postprocedure Activity 2- Moves 4 extremities sustained head lift Activity 2- Moves 4 extremities sustained head lift Circulation 2- SBP +/= 20 points of pre-anesthetic level Circulation 2- SBP +/= 20 points of pre-anesthetic level Consciousness 2- Awake and alert oriented x 3 Consciousness 2- Awake and alert oriented x 3 O2 Saturation 2- Able to maintain O2 satruation of 92% on room air O2 Saturation 2- Able to maintain O2 satruation of 92% on room air Respiratory 2- Able to deep breathe and cough well Respiratory 2- Able to deep breathe and cough well Total Score 10 Total Score 10 Contrast Agent: Isovue Diagnostic Contrast: 78 ml Total Contrast: 78 ml Fluoro Dose: 5050 mGy Procedure Log Time Note Enter By 11:[address] Mijares aware that patient doesn't have a recent IBR. Dr. mijares said that this was okay, no INR needed at this time. [email or web address] 02:19 PM Delmy Chery RT (R) Position: Scrub Time in: 14:19 cedwards 02:19 PM Baldo Xie RN Position: Monitor Time in: 14:19 cedwards 02:19 PM Portia Reid RN Position: Beam Dyer Operator Time in: 14:19 cedwards 02:19 PM Patient charges- Angio tray pack, Navilyst 3mm J, Pulse Oximetry and ACIST tubing and transducer cedwards 02:19 PM IV Supplies used: J loop Angio Cath. cedwards 03:30 PM Case Start 03:30 PM CathStat 03:30 PM Pt arrived to record label internship 2 at 15:30 cedwards 03:31 PM Vitals capture started with the following parameters, Patient=Adult, Interval=5 min, Initial [place]=830 mmHg, Deflation Rate=5 mmHg, Cuff placed on Right Arm 03:32 PM HR=53 bpm, NLJT=617/67 mmhg, KrH7=652.0 %, Resp=16 B/min, Comment=NSR 03:34 PM Physican responded and notified patient is ready 15:34 ced 03:34 PM Physician arrived 15:34 cedwards 03:35 PM ASA Class CLASS II- Mild systemic disease (i.e. well-controlled diabetes, hypertension, asthma, cigarette smoking) ced 03:35 PM Meet and greet completed 03:35 PM Sign in performed according to hospital policy. ced 03:35 PM Procedure start 15:35 cedwards 03:35 PM Time: 15:35 Patient comfortable and pain free: Yes cedwards 03:35 PM Time: 15:35LOC: 5 = Fully awake and oriented or at pre-proc level cedwards 03:35 PM Time: 15:35 Oxygen on at 2 L/min per nasal cannula by Portia Reid RN cedwards 03:36 PM Time: 15:35 Versed 2 mg Intravenous Given by Portia Reid RN cedwards 03:36 PM Time: 15:36 Fentanyl 50 mcg Intravenous Given by Portia Reid RN cedwards 03:37 PM Recorded ECG: HR=60 Condition=Condition 1 03:37 PM HR=59 bpm, NWEB=435/75 mmhg, ApI9=470 %, Resp=13 B/min 03:41 PM Pressure channel 1 zeroed. 03:42 PM HR=64 bpm, QOMS=674/62 mmhg, SpO2=98.0 %, Resp=14 B/min, Comment=NSR 03:44 PM Clinical Presentation: Unstable angina cedwards 03:44 PM Time out performed according to hospital policy cedwards 03:44 PM Time: 15:44 Versed 1 mg Intravenous Given by Portia Reid RN cedwards 03:45 PM Time: 15:44 Fentanyl 25 mcg Intravenous Given by Portia Reid RN cedwards 03:46 PM Time: 15:46 10 ml Lidocaine 2% to right groin Subcutaneous Given by Charan Mijares MD, [facility] cedwards 03:46 PM Access obtained by percutaneous puncture. 5Fr 10cm Terumo Todd sheath placed in right Femoral artery. [id number] cedwards 03:47 PM HR=59 bpm, NMAU=071/55 mmhg, HuP2=705.0 %, Resp=20 B/min, Comment=NSR 03:47 PM 5Fr FR 4 catheter inserted over the wire [facility] cedwards 03:47 PM 0.035 145cm Navilyst 3mmJ wire [id number] cedwards 03:47 PM RCA angiography performed in multiple views. cedwards 03:49 PM Catheter removed ced 03:50 PM 5Fr FL 4 catheter inserted over the wire [facility] ced 03:50 PM LCA angiography performed in multiple views. ced 03:50 PM Recorded Pressure: Ao, HR=65, Condition=Condition 1 (Aorta) Ao 113/82/99 03:50 PM Time: 15:35 Patient comfortable and pain free: Yes ced 03:50 PM Time: 15:35LOC: 4 = Oriented but drowsy cedwards 03:51 PM HR=61 bpm, TCTW=093/88 mmhg, SpO2=85.0 %, Resp=14 B/min, Comment=NSR 03:54 PM Catheter removed ced 03:54 PM 5Fr Pigtail catheter inserted over the wire [facility] ced 03:55 PM Catheter selectively placed in left ventricle cedwards 03:55 PM Recorded Pressure: LV, HR=74, Condition=Condition 1 (Left Ventricle) LV 119/-4/6 03:56 PM Recorded Pressure: LV, Ao, HR=67, Condition=Condition 1 (Left Ventricle) LV 119/-2/8, (Aorta) Ao 116/72/90 03:57 PM HR=72 bpm, [facility]=389/79 mmhg, SpO2=94.0 %, Resp=13 B/min, Comment=NSR 03:58 PM Bolus angiogram of left Ventricle complete: 10 ml/sec for a total of 30 mls ced 03:58 PM Catheter removed ced 03:58 PM Procedure completed at 15:58 01/09/2018 ced 04:01 PM Did you address DOMINGA flow and Dominance? Yes ced 04:01 PM Sign out completed: Radiation Dose 500.72 mGy, 5049.92 cGy/cm2 Fluoro Time: 1.2 Isovue 370 - 200ml contrast 78 ml given by Charan Mijares MD, [facility]. Complications: NoneCardiac Rehab Consult needed: YesConfirmed administered medications: Yes ced 04:01 PM Isovue 370 - 200ml,1 Bottle(s) used. cedwards 04:01 PM Arterial sheath pulled, Mynx closure device used and was Successful [id number] S/N. cedwards 04:02 PM Estimated Blood Loss: minimal cedwards 04:02 PM HR=65 bpm, LVXM=901/68 mmhg, SpO2=98.0 %, Resp=12 B/min 04:02 PM Post ECG NSR cedwards 04:02 PM Post Blood Pressure 122/68 cedwards 04:02 PM 16:02 Post Pulses Bilateral DP 1+ cedwards 04:02 PM Information taught Cardiac Cath and Mynx cedwards 04:02 PM Education needs Plan of Care, Procedure, and Disease Process cedwards 04:02 PM Learning barriers :None cedwards 04:02 PM Education Methods Verbal cedwards 04:02 PM Education evaluation Able to repeat information cedwards 04:03 PM Site status No bleeding/hematoma - Rt Groin as reported by Delmy Chery RT (R) at 16:02 cedwards 04:03 PM Opsite applied cedwards 04:03 PM Plavix, Effient or Brilinta given No cedwards 04:03 PM Family placed in consult room. cedwards 04:03 PM Complications: None cedwards 04:03 PM Patient out of room: 16:03 cedwards 04:06 PM Time: 15:50LOC: 4 = Oriented but drowsy cedwards 04:06 PM Time: 15:50 Patient comfortable and pain free: Yes cedwards 04:07 PM Lesion found in Proximal RCA. Pre Stenosis: 50 Pre DOMINGA Flow: cedwards 04:07 PM Lesion found in Distal RCA. Pre Stenosis: 60 Pre DOMINGA Flow: cedwards 04:07 PM Lesion found in Proximal LAD. Pre Stenosis: 70 Pre DOMINGA Flow: cedwards 04:07 PM Lesion found in Mid LAD. Pre Stenosis: 85 Pre DOMINGA Flow: cedwards 04:07 PM Lesion found in 1st Diagonal. Pre Stenosis: 75 Pre DOMINGA Flow: cedwards 04:08 PM Lesion found in Distal Circumflex. Pre Stenosis: 60 Pre DOMINGA Flow: cedwards 04:08 PM Lesion found in 1st Marginal. Pre Stenosis: 70 Pre DOMINGA Flow: cedwards 04:09 PM Lesion found in RPLB. Pre Stenosis: 70 Pre DOMINGA Flow: cedwards 04:[address] Calderón paged for CABG consult cedwards 04:18 PM Report given to RN on 3B Pt taken to 3B Room #14. 16:18 cedwards Complications Complication None Hemodynamics Pressures Site Systolic/A Wave Diastolic/V Wave Mean AO 113 82 99 LV 119 -4 6 LV 119 -2 8 AO 116 72 90 Post Procedure Information Blood Pressure: 122/68 mmHg Rhythm: NSR Post procedural instructions were given Surgery consult for CABG Closure Device Time Device Success/Fail 01/09/2018 4:04:00 PM MynxGrip Successful Site Checks Time Location Status Staff Sheath In? Note 04:02 PM Rt Groin No bleeding/hematoma Delmy Chery RT (R) Pulses Time Site Pre-Procedure Post-Procedure Note Bilateral DP & PT 2+ Bilateral radial 2+ 4:02:00 PM Bilateral DP 1+ Updated by Baldo Xie RN on 01/09/2018 4:20:11 PM electronically signed on 01/09/2018 4:22:29 PM with status of Final
--- NOTE | 2018-01-09 17:14 | Cardiothoracic Consult Note ---
Date of Encounter: 01/09/18 Time of Encounter: 17:10 Assessment and Plan (1) Chest pain Current Visit: Yes Status: Acute The assessment and plan as outlined above was discussed with the patient and/or family members who expressed understanding and agreement. All questions were answered. The patient has triple-vessel disease with preserved ventricular function and is a candidate for coronary artery bypass grafting. The procedure, its risks, benefits and alternatives were explained and he does wish to proceed. He has been on twice a day Brilinta and he will need to be off this for 5 days prior to surgery. I have stopped this. He could be maintained on a low-dose heparin drip. The procedure, its risks, benefits and alternatives were explained and he does wish to proceed. We will tentatively schedule him for Sunday. Qualifiers: Chest pain type: unspecified Qualified Code(s): R07.9 - Chest pain, unspecified - History of Present Illness History of present illness: Mr. Mcintyre is a 42 year old male The patient is a 42-year-old gentleman who had a myocardial infarction in November 2016. He did receive stents at that time. He has been having angina for several months. He was admitted with severe chest pain. Initial troponin was negative. Echocardiogram done in June revealed ejection fraction of 55-60% . Cardiac catheterization done today revealed triple vessel disease with bypassable vessels. He had a 85% LAD lesion. A 75% diagonal lesion. A 70% circumflex lesion. A 60-70% right coronary artery lesion. He has been on Brilinta twice a day. Social history. 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 He lives in [place] with his , HER-2 kids and a stepdaughter. He used to smoke 1-1-1/2 packs of cigarettes per day, but quit in November 2016. Does not drink alcohol. Family history is positive for cancer and heart disease. Review of systems is negative for stroke or TIA. Negative for saphenous vein varicosities or strippings. Past Med Surg Social Fam HX - Past Medical History Medical history: coronary artery disease, GERD, hyperlipidemia, hypertension, kidney stones, liver disease, myocardial infarction Additional medical history: gout Psychiatric history: no psych history - Past Surgical History Surgical History: angioplasty/stent, appendectomy Additional surgical history: Kidney stone removal - Social History Smoking Status: Former smoker Smokeless Tobacco Status: No Alcohol use: none Drug use: none - Family History Father Adopted: [place]: Abrahan Mcintyre Age: 67 Family Member Ethnicity: Non- Living Status: Still Living Hx Family Cardiac Disorders: No Hx Family Respiratory Disorders: No Hx Family Cancer: No Hx Family GI Disorders: No Hx Family Endocrine Disorder: Yes (diabetes) Hx Family Neuromuscular Disorders: No Hx Family Neurologic Disorders: No Hx Family HEENT Disorders: No Hx Family Autoimmune Disorders: No Mother Name: Sophie Ramey Living Status: Age at : 65 Cause of : cancer Hx Family Cardiac Disorders: No Hx Family Respiratory Disorders: No Hx Family Cancer: Yes Hx Family GI Disorders: No Hx Family Endocrine Disorder: Yes (diabetes) Hx Family Neuromuscular Disorders: No Hx Family Neurologic Disorders: No Hx Family HEENT Disorders: No Hx Family Autoimmune Disorders: No Medications and Allergies Amlodipine Besylate 10 mg PO DAILY 12/01/16 [History] Aspirin Enteric Coated [Aspirin EC] 81 mg PO DAILY #30 12/03/16 [Rx] Carvedilol [Coreg] 12.5 mg PO BIDWM #120 tab 12/03/16 [Rx] Nitroglycerin 0.4 mg SL Q5MIN PRN #30 12/03/16 [Rx] Rosuvastatin [Crestor] 40 mg PO HS #30 tab 12/03/16 [Rx] Ticagrelor [Brilinta] 90 mg PO BID #60 tab 12/03/16 [Rx] Losartan Potassium [Cozaar] 50 mg PO DAILY 06/27/17 [History] Isosorbide MONOnitrate (24 HR) [Imdur] 30 mg PO DAILY #30 tab.er.24h 06/28/17 [ Rx] 3 Allergy/AdvReac Type Severity Reaction Status Date / Time No Known Allergies Allergy Verified 12/19/16 14:10 All Systems Review: The remainder of the systems were reviewed and are negative Physical Examination Vital Signs, Last 4 Hours Temp Pulse Resp BP Pulse Ox 01/09/18 16:25 98 F 62 14 138/82 97 Pupils are equal, round and reactive to light and accommodation. Teeth are in poor repair. Neck is supple. Trachea in the midline. No thyromegaly or carotid bruits. Lungs are clear to percussion and auscultation. Heart is in a regular rate and rhythm. No murmurs, gallops or rubs. Abdomen is benign. No tenderness, rebound or guarding. Extremities without edema. No saphenous vein varicosities or strippings. Cranial nerves, motor and sensory intact. Results 01/08/18 17:39 01/08/18 17:39 Lab Results, Last 24 hours 01/09/18 01/09/18 01/09/18 00:27 00:27 00:27 Magnesium 2.0 Troponin I < 0.03 B-Natriuretic Peptide 01/09/18 01/09/18 06:48 10:58 Magnesium Troponin I < 0.03 < 0.03 B-Natriuretic Peptide Consult Discharge Plan - Plan Referrals: Jona Moya MD [Primary Care Provider] -
--- NOTE | 2018-01-09 17:18 | Pre-Sedation Evaluation ---
Pre-sedation evaluation - Pre-sedation checklist Date of procedure: 01/09/18 Procedure: heart cath Recent Vitals: Last Vital Signs Temp 98 F 01/09/18 16:25 Pulse 62 01/09/18 16:25 Resp 14 01/09/18 16:25 BP 138/82 01/09/18 16:25 Pulse Ox 97 01/09/18 16:25 H&P (including ROS) documented in medical record: Yes Previous reaction to sedatives/anesthetics: Yes; explain in comment Dietary Status: NPO after Midnight Dentition: poor dentition ASA Classification *see protocol: CLASS II-Mild systemic disease Plan of Care: Pt appropriate candidate for procedure/moderate/conscious sedation , Risks/benefits of procedure/sedation discussed w/ patient/family Cardiac Registry (Cardio Only) - Functional Capacity Functional Capacity: >=4 METS with symptoms - Clincal Frailty Scale Clinical Frailty Scale: Managing Well
[2018-01-09] MEDS: Acetaminophen 325 MG TABLET PO PRN (17:20)
--- NOTE | 2018-01-09 17:59 | Electrocardiograph Report ---
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
[2018-01-10] MEDS: traMADol 50 MG TABLET PO PRN ×2 (03:06→17:11)
[2018-01-10] MEDS: Isosorbide MONOnitrate (24 HR) 30 MG TAB.ER.24H PO SCH (08:02)
[2018-01-10] MEDS: Aspirin Enteric Coated 81 MG Tablet PO SCH (08:03)
[2018-01-10] MEDS: amLODIPine 5 MG TABLET PO SCH (08:03)
--- NOTE | 2018-01-10 09:00 | Cardiothoracic Progress Note ---
Date of Encounter: 01/10/18 Time of Encounter: 08:58 - Assessment and plan (1) Chest pain Current Visit: Yes Status: Acute I was planning to schedule open heart surgery for next Sunday. This would give the patient 5 days off Brilinta. He could be discharged and scheduled as an outpatient. However, the patient's family is in the room and they are planning to seek a second opinion at [facility]. This could be done as a direct transfer or as an outpatient in the clinic. The patient has our phone number and if he decides to have surgery and [place] we will schedule him after he calls. Qualifiers: Chest pain type: unspecified Qualified Code(s): R07.9 - Chest pain, unspecified - Subjective Interval history: The patient had no chest pain last night. He has no further questions concerning surgery. Vital Signs, Last 4 Hours Temp Pulse Resp BP Pulse Ox 01/10/18 07:30 98.0 F 64 15 133/77 98 Weight 01/08/18 01/09/18 01/10/18 23:59 23:59 23:59 Weight 135.9 kg 137.4 kg Lungs are clear to percussion and auscultation. Heart is in a regular rate and rhythm. - Labs 01/08/18 17:39 01/08/18 17:39 Lab Results, Last 24 hours 01/09/18 10:58 Troponin I < 0.03 Consult Discharge Plan - Plan Referrals: Jona Moya MD [Primary Care Provider] -
[2018-01-10] MEDS ORDERED: Ondansetron 4 MG/2 ML VIAL IVP ONE (09:35)
--- NOTE | 2018-01-10 10:42 | Discharge Summary ---
- NOTES TO OUTPATIENT PROVIDER Notes to Outpatient Provider: Mr Mcintyre is a 42 year old male whom was seen in the ED on 01/08/2018 for chest pain shortness of breath, and ;unstable angina. He has history of NSTIMi with 2 stents placed in 2017. At time of admission Troponin was < 0.03, renal status was normal with GFR > 60. he ahd abnormal stress test, with lef hear cath per right iliofmeral angiogryphay on 01/09/2018. Results positive for LVEF of 55%, Stenosis of the Proximal LAD 70%, Mid LAD 85 %, and 75% 1st diagonal . Cecum disat @60%, Disatal marginal 70%, and rigth coronary artery with sten patent, 50% stenosis in Prox RCA, 70-80% stenosis in distal RCA, and 70-80% stenosis of the kright PL and PDA bifurcation lesions. Dr. Calderón Cardiothoracic Surgeon was consulted, discussion with patient and family was completed, and was dicided that he is a cadidate for Triple bypass. Patient had verbalized a second opion with possible seeking care at [facility]. After discussion with this provider regarding the significance of risk of comorbid conditions, including but not limited to from severe occolsion and massive SC due blockages, Patient and have decieded to have Triple bypass completed. Dr. Calderón was advised of change of mind and patient verbalization of continous of scheduled surgery on Jan 15 here at [facility]. Patient will be discharged home on current medicaitons, and will return to Out patient surgery on SundayJan 15 morning for preperation of bypass. Orders not resulted at time of discharge: none Date of Encounter: 01/10/18 Time of Encounter: 09:00 - Discharge Diagnosis (1) Unstable angina Priority: Primary Status: Acute Assessment and Plan: Heart cath reveals bypassable triple CAD with plan to return to hospital out patinetn on SundayJan 15 for CABAG x [address] Calderón and group. (2) HTN (hypertension) Priority: Secondary Status: Chronic Assessment and Plan: [place] home meds Qualifiers: Hypertension type: essential hypertension Qualified Code(s): I10 - Essential (primary) hypertension (3) Abnormal nuclear stress test Priority: Primary Status: Acute Assessment and Plan: Low level exercise/ pharmacologic stress ECG is negative for ischemia at level of heart rate achieved. Gated EF = 54%. Small sized, mild intensity, reversibly inferior perfusion defect possibly due to ischemia. (4) HLD (hyperlipidemia) Priority: Secondary Status: Chronic Assessment and Plan: Continue home medications, discussed the results and implications of CAD with triple vessel of occlusions. Cardiac diet To return on 01/15/2018, Same day Surgery for preparation of triple vessel bypass Qualifiers: Hyperlipidemia type: pure hypercholesterolemia Qualified Code(s): E78.00 - Pure hypercholesterolemia, unspecified; E78.0 - Pure hypercholesterolemia (5) Morbid obesity Priority: Secondary Status: Chronic Assessment and Plan: Cardiac diet , will discuss plan upon discharge for cardiac rehab post [facility] (6) Coronary artery disease Priority: Primary Status: Acute Assessment and Plan: To have triple by pass completed next week on 01/15/2018 will return to same day surgery at 7 Am. To be scheduled . Qualifiers: Coronary Disease-Associated Artery/Lesion type: [place] artery [place] vs. transplanted heart: [place] heart Associated angina: with unstable angina Qualified Code(s): I25.110 - Atherosclerotic heart disease of [place] coronary artery with unstable angina pectoris (7) DVT prophylaxis Priority: Primary Status: Resolved Hospital course: Mr. Mcintyre is a 42 year old male whom was seen in the ED on 01/08/2018 for chest pain shortness of breath, and ;unstable angina. He has history of NSTIMi with 2 stents placed in 2017. At time of admission Troponin was < 0.03, renal status was normal with GFR > 60. he ahd abnormal stress test, with lef hear cath per right iliofmeral angiogryphay on 01/09/2018. Results positive for LVEF of 55%, Stenosis of the Proximal LAD 70%, Mid LAD 85%, and 75% 1st diagonal . Cecum disat @60%, Disatal marginal 70%, and rigth coronary artery with sten patent, 50% stenosis in Prox RCA, 70-80% stenosis in distal RCA, and 70-80% stenosis of the kright PL and PDA bifurcation lesions. Dr. Calderón Cardiothoracic Surgeon was consulted, discussion with patient and family was completed, and was dicided that he is a cadidate for Triple bypass. Patient had verbalized a second opion with possible seeking care at [facility]. After discussion with this provider regarding the significance of risk of comorbid conditions, including but not limited to from severe occolsion and massive SC due blockages, Patient and have decieded to have Triple bypass completed. Dr. Calderón was advised of change of mind and patient verbalization of continous of scheduled surgery on Sunday, Jan 15 here at [facility]. Patient will be discharged home on current medicaitons, and will return to Out patient surgery on SundayJan 15 morning for preperation of bypass. Discharge discussed with: patient, family Time spent discussing smoking cessation with patient: more than 10 minutes - Time Spent with Patient Total time spent providing and/or coordinating discharge services: Less than 30 minutes - Discharge Medications Home Medications: Amlodipine Besylate 10 mg PO DAILY 12/01/16 [History] Aspirin Enteric Coated [Aspirin EC] 81 mg PO DAILY #30 12/03/16 [Rx] Carvedilol [Coreg] 12.5 mg PO BIDWM #120 tab 12/03/16 [Rx] Nitroglycerin 0.4 mg SL Q5MIN PRN #30 12/03/16 [Rx] Rosuvastatin [Crestor] 40 mg PO HS #30 tab 12/03/16 [Rx] Ticagrelor [Brilinta] 90 mg PO BID #60 tab 12/03/16 [Rx] Losartan Potassium [Cozaar] 50 mg PO DAILY 06/27/17 [History] Isosorbide MONOnitrate (24 HR) [Imdur] 30 mg PO DAILY #30 tab.er.24h 06/28/17 [ Rx] Allergies/Adverse Reactions: 3 Allergy/AdvReac Type Severity Reaction Status Date / Time No Known Allergies Allergy Verified 12/19/16 14:10 Date of admission: 01/08/18 20:12 Primary care physician: Jona Moya MD Consults: 01/08/18 20:37 Consult to Cardiology [CONS] Routine Comment: Consulting Provider: Cardiology [place] Reason for Consult: chest pain Time Notified: 20:37 Call Completed: No 01/09/18 16:34 Consult to Cardiothoracic Surgery [CONS] Routine Consulting Provider: Cardiothoracic Surgery [place] Reason for Consult: open heart Call Completed: Yes Discharging clinician: Laura Anderson Anticipated date of discharge: 01/10/18 - Constitutional Vitals: Temp Pulse Resp BP Pulse Ox 98.0 F 64 15 133/77 98 01/10/18 07:30 01/10/18 07:30 01/10/18 07:30 01/10/18 07:30 01/10/18 07:30 General appearance: Present: A&O X 3, pleasant Exam: Denies chest pain , reports mild nausea Zofan 4mg IM x 1 - Head Head exam: Present: atraumatic, normocephalic - Neck Neck exam general surgery: Present: supple, trachea midline. Absent: lymphadenopathy - Respiratory Respiratory exam: Present: CTAB. Absent: accessory muscle use, rales, rhonchi, wheezes - Cardiovascular Cardiovascular exam: Present: RRR, +S1, +S2. Absent: diastolic murmur, gallop, rubs, systolic murmur - GI/Abdominal GI/Abdominal exam: Present: normal bowel sounds, soft, no peritoneal signs. Absent: distended, tenderness - Extremities Exam Extremities exam: Present: warm, radial pulses palpable and symmetrical. Absent : calf tenderness, cyanotic, pedal edema - Neurological Exam Neurological exam: Present: CN II-XII intact, oriented X3, no focal deficits. Absent: pronater drift, facial droop, speech deficit - Skin Skin exam: Present: dry, intact - Patient Status Disposition: Home, Self-Care Condition: Fair Functional capacity at discharge: independent ambulation Overall status at discharge: patient is progressing back to baseline - Discharge Instructions Instructions: Chest Pain (DC), Chronic Hypertension (DC) Follow Up With: Jona Moya MD [Primary Care Provider] - Shadi Calderón MD [Partnered Physician] - Additional Instructions: May not return to work, pending heart surgery, next week. Date of employment return undetermined at this time - Diet and Activity Activity: other Diet: low fat, low cholesterol, low salt diet
--- NOTE | 2018-01-10 11:56 | Cardiology Progress Note ---
Date of Encounter: 01/10/18 Time of Encounter: 11:42 Assessment and Plan (1) Unstable angina Current Visit: Yes Status: Acute CP at rest on Sunday, initially thought to be indigestion--midsternal/left sided. Associated with significant fatigue. Relief with nitro in ED. Troponins negative. EKG unchanged. TTE EF preserved. Known CAD hx with PCI to RCA and LCx 11/2016. Compliant with DAPT--ASA and Brilinta. S/P [facility] yesterday--There is severe 3V CAD involving 2 bifurcations PDA/PLB and proximal LAD/1st diagonal, progressive CAD since [facility] 2016. Patent mid LCx and mid RCA stents. CT surgery consulted--recommend CABG on Sunday after Brilinta washout. Can be d /c'd home with outpt CABG. Pt and would like a second opinion at [facility]. Will send referral through our office. CP has been constant, currently 06/02. Increase Imdur to 60mg daily. Continue ASA , Statin, BB, ARB. Brilinta stopped in anticipation of CABG. Refuses to allow me to assess femoral access site. Restrictions discussed. Cardiology signing off. Reconsult PRN. Will coordinate outpt follow-up in 4-6 weeks. (2) Coronary artery disease Current Visit: Yes Status: Acute As above. ASA, Statin, BB, Imdur. Brilinta stopped in anticipation of CABG. Qualifiers: Coronary Disease-Associated Artery/Lesion type: [place] artery [place] vs. transplanted heart: [place] heart Associated angina: with unstable angina Qualified Code(s): I25.110 - Atherosclerotic heart disease of [place] coronary artery with unstable angina pectoris Discussion w patient/family: The assessment and plan as outlined above was discussed with the patient and/or family members who expressed understanding and agreement. All questions were answered. Thank you for involving us in the care of your patient. Please call with any questions. I will discuss all the above with Dr. Baldwin and make changes as necessary. Subjective Principal diagnosis: CAD Interval history: S/P [facility] yesterday--There is severe three vessel coronary artery disease involving 2 bifurcations PDA/PLB and proximal LAD/1st diagonal, progressive coronary artery disease since [facility] 2016. The left ventricle is normal and has normal contractility EF 55%. Patent mid LCx and mid RCA stents. CT surgery consulted--recommend CABG after Brilinta washout. Tentatively planned for Sunday, can be done outpt. Pt reports n/v that started this AM. Reports constant chest pain, currently 06/02. Pt and would like a referral to [facility] for a second opinion. Objective Vital Signs Temp Pulse Resp BP Pulse Ox 01/10/18 07:30 98.0 F 64 15 133/77 98 01/10/18 03:35 98.3 F 57 16 155/91 97 01/09/18 23:32 97.7 F 57 16 119/66 97 01/09/18 20:06 63 14 123/75 96 01/09/18 19:11 64 15 122/88 97 01/09/18 18:10 64 15 119/82 98 01/09/18 17:40 65 15 129/82 97 01/09/18 17:10 60 15 137/84 97 01/09/18 16:55 66 14 136/80 97 01/09/18 16:40 59 14 116/77 98 01/09/18 16:25 98 F 62 14 138/82 97 01/09/18 12:25 97.9 F 60 15 133/67 98 Intake and Output 01/09/18 01/10/18 01/10/18 23:59 07:59 15:59 Other: Weight 137.4 kg Patient Weight 01/10/18 23:59 Weight 137.4 kg General: Conversant, No Apparent Distress HEENT: Atraumatic, Normocephaly, Mucus Membranes Moist Neck: No JVD, Normal carotid pulses Cardiac: Reg Rate and Rhythm, Normal S1 and S2, No Murmur Lungs: Normal Breath Sounds, No Wheeze, Rales, Rhonchi Neuro: Alert and responsive, No focal deficits noted Abdomen: Soft, Non-Tender Skin: No rashes noted on visualized skin Musculoskeletal: No Chest Wall Tenderness Extremities: No Clubbing, No Cyanosis, No Edema, Normal Pulses Results 01/08/18 17:39 01/08/18 17:39 Impressions Echocardiogram 01/09/18 08:53 Impressions: LVEF 60%. Normal LV chamber size and function. Mild concentric left ventricular hypertrophy. Moderate left ventricular diastolic dysfunction. Normal right ventricular structure and function. No evidence of pulmonary hypertension. RVSP not well obtained and possibly underestimated. No significant valvular dysfunction. Left Ventricular Wall Motion: Rest Echo Findings All wall segments showed normal motion. Findings: Study Quality * Technically adequate exam. ECG Findings * Sinus bradycardia. Left Ventricle * LVEF 60%. * Normal LV chamber size and function. * Mild concentric left ventricular hypertrophy. * Moderate left ventricular diastolic dysfunction. Right Ventricle * Normal right ventricular structure and function. Left Atrium * Moderately dilated left atrium. Right Atrium * Normal right atrial size. Aortic Valve * Aortic valve not well visualized. * No aortic regurgitation. * No aortic stenosis. Mitral Valve * Normal mitral valve structure and function. * No mitral regurgitation. * No mitral stenosis. Tricuspid Valve * Normal tricuspid valve structure and function. * Trace tricuspid regurgitation. * No evidence of pulmonary hypertension. Pulmonic Valve * Normal pulmonic valve structure and function. * No pulmonic regurgitation. Aorta * Normally sized aortic root. Pericardium * The pericardium appears normal. IVC * Normal IVC dimensions and inspiratory collapse. Pulmonary Artery * Normal visualized portions of the main pulmonary artery. Active Medications Acetaminophen (Tylenol) 650 mg PO Q6HR PRN PRN Reason: Mild Pain/Fever Stop: 07/10/18 20:36 Last Admin: 01/09/18 17:20 Dose: 650 mg Amlodipine Besylate (Norvasc) 10 mg PO DAILY [facility] Stop: 07/11/18 09:01 Last Admin: 01/10/18 08:03 Dose: 10 mg Aspirin (Aspirin Ec) 81 mg PO DAILY [facility] Stop: 07/11/18 09:01 Last Admin: 01/10/18 08:03 Dose: 81 mg Carvedilol (Coreg) 12.5 mg PO BIDWM MERYL PRN Reason: Protocol Stop: 07/11/18 08:01 Last Admin: 01/10/18 08:03 Dose: 12.5 mg Isosorbide Mononitrate (Imdur) 30 mg PO DAILY [facility] Stop: 07/11/18 09:01 Last Admin: 01/10/18 08:02 Dose: 30 mg Losartan Potassium (Cozaar) 50 mg PO DAILY [facility] Stop: 07/11/18 09:01 Last Admin: 01/10/18 08:03 Dose: 50 mg Naloxone HCl (Narcan) 0.4 mg IVP Q2MIN PRN PRN Reason: SEE COMMENTS Stop: 07/10/18 20:36 Nitroglycerin (Nitroglycerin) 0.4 mg SL Q5MIN PRN PRN Reason: Chest Pain Stop: 07/10/18 20:37 Rosuvastatin Calcium (Crestor) 40 mg PO HS MERYL Stop: 07/10/18 21:01 Last Admin: 01/09/18 20:00 Dose: 40 mg Tramadol HCl (Ultram) 50 mg PO Q6HR PRN PRN Reason: Moderate Pain Stop: 07/10/18 20:36 Last Admin: 01/10/18 03:06 Dose: 50 mg - Imaging and Cardiology Echo: report reviewed Cardiac cath: report reviewed Consult Discharge Plan - Plan Instructions: Chest Pain (DC), Chronic Hypertension (DC) Additional Instructions: May not return to work, pending heart surgery, next week. Date of employment return undetermined at this time Referrals: Jona Moya MD [Primary Care Provider] - Shadi Calderón MD [Partnered Physician] -
[2018-01-10] MEDS ORDERED: Isosorbide MONOnitrate (24 HR) 30 MG TAB.ER.24H PO ONE (11:58)
--- NOTE | 2018-01-10 13:25 | Event Note ---
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 Willing to stay for 1 or more days[address] Will place hold on discharge for today, and re-evaluate for discharge again tomorrow
[2018-01-10] MEDS: Ondansetron 4 MG/2 ML VIAL IVP PRN (18:29)
[2018-01-11] MEDS: Aspirin Enteric Coated 81 MG Tablet PO SCH (08:36)
[2018-01-11] MEDS: Isosorbide MONOnitrate (24 HR) 30 MG TAB.ER.24H PO SCH (08:36)
[2018-01-11] MEDS: amLODIPine 5 MG TABLET PO SCH (08:36)
[2018-01-11] MEDS ORDERED: *HR* Heparin 5,000 UNIT/ML VIAL IVP PRN ×2 (10:18)
[2018-01-11] MEDS ORDERED: *HR* Heparin 5,000 UNIT/ML VIAL IVP ONE (10:18)
--- NOTE | 2018-01-11 10:22 | Cardiology Progress Note ---
Date of Encounter: 01/11/18 Time of Encounter: 10:22 Assessment and Plan (1) Unstable angina Current Visit: Yes Status: Acute S/P [facility] 01/09/18--Severe 3V CAD involving 2 bifurcations PDA/PLB and pLAD/1st diagonal, progressive CAD since [facility] 2016. Patent mLCx and mRCA stents. CT surgery consulted--recommend CABG on Sunday after Brilinta washout. Continues to have intermittent CP. On Imdur 60mg daily. Increase BB--Coreg to 25mg BID. Starting heparin gtt for unstable angina. If continues to have CP and if BP will allow, consider increasing PO nitrates or nitro gtt. Continue ASA, Statin, BB, ARB. Brilinta stopped in anticipation of CABG. Will continue to follow. (2) Coronary artery disease Current Visit: Yes Status: Acute As above. ASA, Statin, BB, Imdur. Brilinta stopped in anticipation of CABG. Qualifiers: Coronary Disease-Associated Artery/Lesion type: [place] artery [place] vs. transplanted heart: [place] heart Associated angina: with unstable angina Qualified Code(s): I25.110 - Atherosclerotic heart disease of [place] coronary artery with unstable angina pectoris Discussion w patient/family: The assessment and plan as outlined above was discussed with the patient and/or family members who expressed understanding and agreement. All questions were answered. Thank you for involving us in the care of your patient. Please call with any questions. I will discuss all the above with Dr. Baldwin and make changes as necessary. Subjective Principal diagnosis: CAD Interval history: Pt continues to have intermittent chest pain overnight. Has decided to have CABG here at [facility] on Sunday. Has also decided to stay inpt until CABG. Objective Vital Signs, Last 4 Hours Temp Pulse Resp BP Pulse Ox 01/11/18 07:14 97.7 F 73 15 147/92 98 Vital Signs Temp Pulse Resp BP Pulse Ox 01/11/18 07:14 97.7 F 73 15 147/92 98 01/11/18 03:51 98.0 F 67 16 127/82 96 01/10/18 23:26 98.4 F 65 18 134/66 94 01/10/18 15:44 97.8 F 59 15 150/72 95 General: Conversant, No Apparent Distress HEENT: Atraumatic, Normocephaly, Mucus Membranes Moist Neck: No JVD, Normal carotid pulses Cardiac: Reg Rate and Rhythm, Normal S1 and S2, No Murmur Lungs: Normal Breath Sounds, No Wheeze, Rales, Rhonchi Neuro: Alert and responsive, No focal deficits noted Abdomen: Soft, Non-Tender Skin: No rashes noted on visualized skin Musculoskeletal: No Chest Wall Tenderness Extremities: No Clubbing, No Cyanosis, No Edema, Normal Pulses Results 01/08/18 17:39 01/08/18 17:39 Active Medications Acetaminophen (Tylenol) 650 mg PO Q6HR PRN PRN Reason: Mild Pain/Fever Stop: 07/10/18 20:36 Last Admin: 01/09/18 17:20 Dose: 650 mg Amlodipine Besylate (Norvasc) 10 mg PO DAILY [facility] Stop: 07/11/18 09:01 Last Admin: 01/11/18 08:36 Dose: 10 mg Aspirin (Aspirin Ec) 81 mg PO DAILY [facility] Stop: 07/11/18 09:01 Last Admin: 01/11/18 08:36 Dose: 81 mg Carvedilol (Coreg) 25 mg PO BIDWM [facility] PRN Reason: Protocol Stop: 07/13/18 17:01 Heparin Sodium (Porcine) (Heparin) 4,000 unit IVP ONCE ONE Stop: 01/11/18 10:19 Heparin Sodium (Porcine) (Heparin) 4,000 unit IVP Q6HR PRN PRN Reason: SEE COMMENTS Stop: 07/13/18 10:19 Heparin Sodium (Porcine) (Heparin) 2,000 unit IVP Q6H PRN PRN Reason: SEE COMMENTS Stop: 07/13/18 10:19 Heparin Sodium/Dextrose (Heparin 25,000 Unit/500 Ml D5w) 25,000 unit in 500 mls @ 32.976 mls/hr IVC .[id number] MERYL; 12 UNIT/KG/HR PRN Reason: Protocol Stop: 07/13/18 10:31 Isosorbide Mononitrate (Imdur) 60 mg PO DAILY [facility] Stop: 07/13/18 09:01 Last Admin: 01/11/18 08:36 Dose: 60 mg Losartan Potassium (Cozaar) 50 mg PO DAILY [facility] Stop: 07/11/18 09:01 Last Admin: 01/11/18 08:35 Dose: 50 mg Naloxone HCl (Narcan) 0.4 mg IVP Q2MIN PRN PRN Reason: SEE COMMENTS Stop: 07/10/18 20:36 Nitroglycerin (Nitroglycerin) 0.4 mg SL Q5MIN PRN PRN Reason: Chest Pain Stop: 07/10/18 20:37 Last Admin: 01/10/18 12:31 Dose: 0.4 mg Ondansetron HCl (Zofran) 4 mg IVP Q8HR PRN; Protocol PRN Reason: Nausea And Vomiting Stop: 07/12/18 17:54 Last Admin: 01/10/18 18:29 Dose: 4 mg Rosuvastatin Calcium (Crestor) 40 mg PO HS MERYL Stop: 07/10/18 21:01 Last Admin: 01/10/18 20:21 Dose: 40 mg Tramadol HCl (Ultram) 50 mg PO Q6HR PRN PRN Reason: Moderate Pain Stop: 07/10/18 20:36 Last Admin: 01/10/18 17:11 Dose: 50 mg - Imaging and Cardiology Echo: report reviewed Cardiac cath: report reviewed - EKG Interpretation EKG results cardiology: other (12 hr tele AVG HR 63, SR) Consult Discharge Plan - Plan Instructions: Chest Pain (DC), Chronic Hypertension (DC) Additional Instructions: May not return to work, pending heart surgery, next week. Date of employment return undetermined at this time Referrals: Jona Moya MD [Primary Care Provider] - 01/18/18 4:00 pm Shadi Calderón MD [Partnered Physician] -
[2018-01-11 11:13] LABS: Heparin anti-factor XA UFH 0.02 IU/mL (0.30-0.70)
[2018-01-11 11:14] LABS: INR 1.1; Prothrombin Time 12.3 Seconds (9.4-12.1)
[2018-01-11] MEDS: Acetaminophen 325 MG TABLET PO PRN ×2 (11:37→19:17)
[2018-01-11] MEDS: Heparin 25,000 UNIT/500 ML D5W 25,000 UNIT/500 ML BAG IVC SCH (11:41)
--- NOTE | 2018-01-11 12:00 | Cardiothoracic Progress Note ---
Date of Encounter: 01/11/18 Time of Encounter: 11:58 - Assessment and plan (1) Chest pain Current Visit: Yes Status: Acute The patient has decided not to seek a second opinion in [place]. He will remain in the hospital and he is scheduled for open heart surgery on Sunday morning. He has no questions. Qualifiers: Chest pain type: unspecified Qualified Code(s): R07.9 - Chest pain, unspecified - Subjective Interval history: The patient had some chest pain. This was described as brief and sharp. Vital Signs, Last 4 Hours Temp Pulse Resp BP Pulse Ox 01/11/18 11:51 97.7 F 62 15 153/78 98 Weight 01/09/18 01/10/18 01/11/18 23:59 23:59 23:59 Weight 135.9 kg 137.4 kg Lungs are clear to percussion and auscultation. Heart is in a normal sinus rhythm. - Labs 01/08/18 17:39 01/08/18 17:39 Lab Results, Last 24 hours 01/11/18 10:36 INR 1.1 Consult Discharge Plan - Plan Instructions: Chest Pain (DC), Chronic Hypertension (DC) Additional Instructions: May not return to work, pending heart surgery, next week. Date of employment return undetermined at this time Referrals: Jona Moya MD [Primary Care Provider] - 01/18/18 4:00 pm Shadi Calderón MD [Partnered Physician] -
[2018-01-11 12:40] LABS: Hematocrit 38.6 % (37.5-50.1); Hemoglobin 13.1 g/dL (12.9-16.9); Mean Corpuscular HGB Conc 33.9 g/dL (31.6-35.5); Mean Corpuscular Hemoglobin 29.7 pg (28.0-33.3); Mean Corpuscular Volume 87.5 fL (83.0-100.0); Mean Platelet Volume 10.9 fL (9.4-12.4); Platelet Count 166 K/mcL (140-400); Red Blood Count 4.41 M/mcL (4.19-5.50)
--- NOTE | 2018-01-11 15:19 | Internal Med Progress Note ---
Hospitalist Progress Note - Encounter Date of Encounter: 01/11/18 Time of Encounter: 15:19 - Subjective Interval History: Patient seen and examined at bedside today. Denied chest pain or shortness of breath this time. He is undergoing CABG this coming Sunday. - Exam Vitals: Temp Pulse Resp BP Pulse Ox 97.7 F 62 15 153/78 98 01/11/18 11:51 01/11/18 11:51 01/11/18 11:51 01/11/18 11:51 01/11/18 11:51 Exam: PHYSICAL EXAMINATION: GENERAL: A and O 3 HEENT: Head is normocephalic and atraumatic. Extraocular muscles are intact. Pupils are equal, round, and reactive to light and accommodation. NECK: Supple. No carotid bruits. No lymphadenopathy or thyromegaly. LUNGS: Clear to auscultation. HEART: Regular rate and rhythm without murmur. ABDOMEN: Soft, nontender, and nondistended. Positive bowel sounds. No hepatosplenomegaly was noted. EXTREMITIES: Without any cyanosis, clubbing, rash, lesions or edema. NEUROLOGIC: Cranial nerves II through XII are grossly intact. SKIN: No ulceration or induration present. - Assessment and Plan (1) Unstable angina Current Visit: Yes Status: Acute Assessment and Plan: s/p [facility] severe 3 vessel disease involving 2 bifurcations, PDA/PLB and P LAD first diagonal. Patient has a history of progressively CAD with optimization of medical therapy since [facility] 2016. Plan is to undergo CABG this coming Sunday01/15/18. Initially patient wanted a second opinion in [place] however has now opted out of second opinion. Imdur has been increased to 60 mg daily but he continues to have intermittent chest pain. continue aspirin, statin, beta annmarie, ARB. Brilinta stopped in anticipation of CABG. Resume heparin drip (2) HTN (hypertension) Current Visit: No Status: Chronic Assessment and Plan: Per history, BP stable, continue home meds (3) HLD (hyperlipidemia) Current Visit: No Status: Chronic Assessment and Plan: Continue statin (4) Abnormal nuclear stress test Current Visit: No Status: Acute Assessment and Plan: Low level exercise/ pharmacologic stress ECG is negative for ischemia at level of heart rate achieved. Gated EF = 54%. Small sized, mild intensity, reversibly inferior perfusion defect possibly due to ischemia. CABG 01/16/18 (5) Morbid obesity Current Visit: Yes Status: Chronic Assessment and Plan: Discussed lifestyle modifications (6) Coronary artery disease Current Visit: Yes Status: Acute Assessment and Plan: As above (7) DVT prophylaxis Current Visit: No Status: Resolved Assessment and Plan: Continue Heparin sc - Time Spent with Patient Total time spent is greater than 50% in coordination of care (as documented) at patient's floor/unit and/or counseling patient: less than 15 minutes Plan of Care Discussed with: patient Internal Medicine: Result - Labs CBC & Chem 7: 01/11/18 12:05 01/08/18 17:39 Labs: Short CBC 01/11/18 Range/Units 12:05 WBC 6.4 (4.3-11.1) K/mcL Hgb 13.1 (12.9-16.9) g/dL Hct 38.6 (37.5-50.1) % Plt Count 166 (140-400) K/mcL - ABG Interpretation ABG results: PT/INR, D-dimer PT 12.3 Seconds (9.4-12.1) H 01/11/18 10:36 Consult Discharge Plan - Plan Instructions: Chest Pain (DC), Chronic Hypertension (DC) Additional Instructions: May not return to work, pending heart surgery, next week. Date of employment return undetermined at this time Referrals: Jona Moya MD [Primary Care Provider] - 01/18/18 4:00 pm Shadi Calderón MD [Partnered Physician] - (2) HTN (hypertension) Qualifiers: Hypertension type: essential hypertension Qualified Code(s): I10 - Essential (primary) hypertension (3) HLD (hyperlipidemia) Qualifiers: Hyperlipidemia type: pure hypercholesterolemia Qualified Code(s): E78.00 - Pure hypercholesterolemia, unspecified; E78.0 - Pure hypercholesterolemia (6) Coronary artery disease Qualifiers: Coronary Disease-Associated Artery/Lesion type: [place] artery [place] vs. transplanted heart: [place] heart Associated angina: with unstable angina Qualified Code(s): I25.110 - Atherosclerotic heart disease of [place] coronary artery with unstable angina pectoris
--- NOTE | 2018-01-12 06:51 | Cardiology Progress Note ---
Date of Encounter: 01/12/18 Time of Encounter: 06:50 Assessment and Plan (1) Coronary artery disease Current Visit: Yes Status: Acute Per Cardiology: S/P [facility] 01/09/18--Severe 3V CAD involving 2 bifurcations PDA/PLB and pLAD/1st diagonal, progressive CAD since [facility] 2016. Patent mLCx and mRCA stents. CT surgery consulted--recommend CABG on Sunday after Brilinta washout. On IV heparin drip, ASA, Statin, BB, ARB-- suspect CT surgery will stop prior to surgery, and Imdur. Brilinta stopped in anticipation of CABG. Currently chest pain-free. ECHO: Impressions: LVEF 60%. Normal LV chamber size and function. Mild concentric left ventricular hypertrophy. Moderate left ventricular diastolic dysfunction. Normal right ventricular structure and function. No evidence of pulmonary hypertension. RVSP not well obtained and possibly underestimated. No significant valvular dysfunction. Left Ventricular Wall Motion: Rest Echo Findings All wall segments showed normal motion. Qualifiers: Coronary Disease-Associated Artery/Lesion type: [place] artery [place] vs. transplanted heart: [place] heart Associated angina: with unstable angina Qualified Code(s): I25.110 - Atherosclerotic heart disease of [place] coronary artery with unstable angina pectoris Discussion w patient/family: The assessment and plan as outlined above was discussed with the patient and/or family members who expressed understanding and agreement. All questions were answered. Thank you for involving us in the care of your patient. Please call with any questions. Subjective Principal diagnosis: CAD Interval history: Currently chest pain-free. Denies any concerns or complaints overnight. Denies any active bleeding or blood loss. Denies any right groin concerns or complaints. Objective Vital Signs, Last 4 Hours Temp Pulse Resp BP Pulse Ox 01/12/18 03:44 97.7 F 60 14 103/65 97 General: Conversant, No Apparent Distress HEENT: Atraumatic, Normocephaly, Mucus Membranes Moist Neck: No JVD, Normal carotid pulses Cardiac: Reg Rate and Rhythm, Normal S1 and S2, No Murmur Lungs: Normal Breath Sounds, No Wheeze, Rales, Rhonchi Neuro: Alert and responsive, No focal deficits noted Abdomen: Soft, Non-Tender Skin: No rashes noted on visualized skin, Other (Right groin site dry and intact , no hematoma, no bleeding, no ecchymosis) Musculoskeletal: No Chest Wall Tenderness Extremities: No Clubbing, No Cyanosis, No Edema, Normal Pulses Results 01/11/18 12:05 01/08/18 17:39 Active Medications Acetaminophen (Tylenol) 650 mg PO Q6HR PRN PRN Reason: Mild Pain/Fever Stop: 07/10/18 20:36 Last Admin: 01/11/18 19:17 Dose: 650 mg Amlodipine Besylate (Norvasc) 10 mg PO DAILY [facility] Stop: 07/11/18 09:01 Last Admin: 01/11/18 08:36 Dose: 10 mg Aspirin (Aspirin Ec) 81 mg PO DAILY [facility] Stop: 07/11/18 09:01 Last Admin: 01/11/18 08:36 Dose: 81 mg Carvedilol (Coreg) 25 mg PO BIDWM MERYL PRN Reason: Protocol Stop: 07/13/18 17:01 Last Admin: 01/11/18 17:02 Dose: 25 mg Heparin Sodium (Porcine) (Heparin) 4,000 unit IVP Q6HR PRN PRN Reason: SEE COMMENTS Stop: 07/13/18 10:19 Heparin Sodium (Porcine) (Heparin) 2,000 unit IVP Q6H PRN PRN Reason: SEE COMMENTS Stop: 07/13/18 10:19 Last Admin: 01/11/18 19:17 Dose: 2,000 unit Heparin Sodium/Dextrose (Heparin 25,000 Unit/500 Ml D5w) 25,000 unit in 500 mls @ 19.236 mls/hr IVC .Q24H MERYL; 7 UNIT/KG/HR PRN Reason: Protocol Stop: 07/13/18 10:31 Last Titration: 01/12/18 01:16 Dose: 8.87 unit/kg/hr, 24.4 mls/hr Isosorbide Mononitrate (Imdur) 60 mg PO DAILY [facility] Stop: 07/13/18 09:01 Last Admin: 01/11/18 08:36 Dose: 60 mg Losartan Potassium (Cozaar) 50 mg PO DAILY [facility] Stop: 07/11/18 09:01 Last Admin: 01/11/18 08:35 Dose: 50 mg Naloxone HCl (Narcan) 0.4 mg IVP Q2MIN PRN PRN Reason: SEE COMMENTS Stop: 07/10/18 20:36 Nitroglycerin (Nitroglycerin) 0.4 mg SL Q5MIN PRN PRN Reason: Chest Pain Stop: 07/10/18 20:37 Last Admin: 01/10/18 12:31 Dose: 0.4 mg Ondansetron HCl (Zofran) 4 mg IVP Q8HR PRN; Protocol PRN Reason: Nausea And Vomiting Stop: 07/12/18 17:54 Last Admin: 01/10/18 18:29 Dose: 4 mg Rosuvastatin Calcium (Crestor) 40 mg PO HS MERYL Stop: 07/10/18 21:01 Last Admin: 01/11/18 20:39 Dose: 40 mg Tramadol HCl (Ultram) 50 mg PO Q6HR PRN PRN Reason: Moderate Pain Stop: 07/10/18 20:36 Last Admin: 01/10/18 17:11 Dose: 50 mg - Imaging and Cardiology Echo: report reviewed Cardiac cath: report reviewed Consult Discharge Plan - Plan Instructions: Chest Pain (DC), Chronic Hypertension (DC) Additional Instructions: May not return to work, pending heart surgery, next week. Date of employment return undetermined at this time Referrals: Jona Moya MD [Primary Care Provider] - 01/18/18 4:00 pm Shadi Calderón MD [Partnered Physician] -
--- NOTE | 2018-01-12 08:43 | Cardiothoracic Progress Note ---
Date of Encounter: 01/12/18 Time of Encounter: 08:42 - Assessment and plan (1) Chest pain Current Visit: Yes Status: Acute The patient is scheduled for open heart surgery on Sunday. He has no questions. Qualifiers: Chest pain type: unspecified Qualified Code(s): R07.9 - Chest pain, unspecified - Subjective Interval history: The patient had no chest pain and no angina last night. Vital Signs, Last 4 Hours Temp Pulse Resp BP Pulse Ox 01/12/18 07:53 98 F 59 16 145/92 97 Weight 01/10/18 01/11/18 01/12/18 23:59 23:59 23:59 Weight 132 kg Lungs are clear to percussion and auscultation. Heart is in a regular rate and rhythm. - Labs 01/11/18 12:05 01/08/18 17:39 Consult Discharge Plan - Plan Instructions: Chest Pain (DC), Chronic Hypertension (DC) Additional Instructions: May not return to work, pending heart surgery, next week. Date of employment return undetermined at this time Referrals: Jona Moya MD [Primary Care Provider] - 01/18/18 4:00 pm Shadi Calderón MD [Partnered Physician] -
[2018-01-12] MEDS: Aspirin Enteric Coated 81 MG Tablet PO SCH (09:13)
[2018-01-12] MEDS: amLODIPine 5 MG TABLET PO SCH (09:13)
[2018-01-12] MEDS: Isosorbide MONOnitrate (24 HR) 30 MG TAB.ER.24H PO SCH (09:13)
[2018-01-12] MEDS: Heparin 25,000 UNIT/500 ML D5W 25,000 UNIT/500 ML BAG IVC SCH (09:14)
--- NOTE | 2018-01-12 10:24 | Internal Med Progress Note ---
Hospitalist Progress Note - Encounter Date of Encounter: 01/12/18 Time of Encounter: 10:21 - Subjective Interval History: Patient seen and examined at bedside today. Denied chest pain or shortness of breath this time. He is undergoing CABG this coming Sunday. No acute changes overnight - Exam Vitals: Temp Pulse Resp BP Pulse Ox 98 F 59 16 145/92 97 01/12/18 07:53 01/12/18 07:53 01/12/18 07:53 01/12/18 07:53 01/12/18 07:53 Exam: PHYSICAL EXAMINATION: GENERAL: A and O 3 HEENT: Head is normocephalic and atraumatic. Extraocular muscles are intact. Pupils are equal, round, and reactive to light and accommodation. NECK: Supple. No carotid bruits. No lymphadenopathy or thyromegaly. LUNGS: Clear to auscultation. HEART: RRR, S1, S2, without murmur. ABDOMEN: Soft, nontender, and nondistended. Positive bowel sounds. No hepatosplenomegaly was noted. EXTREMITIES: Without any cyanosis, clubbing, rash, lesions or edema. NEUROLOGIC: Cranial nerves II through XII are grossly intact. SKIN: No ulceration or induration present. - Assessment and Plan (1) Unstable angina Current Visit: Yes Status: Acute Assessment and Plan: s/p [facility] severe 3 vessel disease involving 2 bifurcations, PDA/PLB and P LAD first diagonal. Patient has a history of progressively CAD with optimization of medical therapy since [facility] 2016. Plan is to undergo CABG this coming Sunday01/15/18. Initially patient wanted a second opinion in [place] however has now opted out of second opinion. Imdur has been increased to 60 mg daily but he continues to have intermittent chest pain. continue aspirin, statin, beta annmarie, ARB. Brilinta stopped in anticipation of CABG. Resume heparin drip 01/12- Plan for CABG Sunday01/15/18, no return of chest pain overnight. continue heparin gtt, cardio and CTS following (2) HTN (hypertension) Current Visit: No Status: Chronic Assessment and Plan: Per history, BP remains stable, continue home meds[ (3) HLD (hyperlipidemia) Current Visit: No Status: Chronic Assessment and Plan: Continue statin (4) Abnormal nuclear stress test Current Visit: No Status: Acute Assessment and Plan: Low level exercise/ pharmacologic stress ECG is negative for ischemia at level of heart rate achieved. Gated EF = 54%. Small sized, mild intensity, reversibly inferior perfusion defect possibly due to ischemia. CABG 01/16/18 (5) Morbid obesity Current Visit: Yes Status: Chronic Assessment and Plan: Discussed lifestyle modifications (6) Coronary artery disease Current Visit: Yes Status: Acute Assessment and Plan: As above (7) DVT prophylaxis Current Visit: No Status: Resolved Assessment and Plan: Continue Heparin sc - Time Spent with Patient Total time spent is greater than 50% in coordination of care (as documented) at patient's floor/unit and/or counseling patient: less than 15 minutes Plan of Care Discussed with: patient Internal Medicine: Result - Labs CBC & Chem 7: 01/11/18 12:05 01/08/18 17:39 - ABG Interpretation ABG results: PT/INR, D-dimer PT 12.3 Seconds (9.4-12.1) H 01/11/18 10:36 Consult Discharge Plan - Plan Instructions: Chest Pain (DC), Chronic Hypertension (DC) Additional Instructions: May not return to work, pending heart surgery, next week. Date of employment return undetermined at this time Referrals: Jona Moya MD [Primary Care Provider] - 01/18/18 4:00 pm Shadi Calderón MD [Partnered Physician] - (2) HTN (hypertension) Qualifiers: Hypertension type: essential hypertension Qualified Code(s): I10 - Essential (primary) hypertension (3) HLD (hyperlipidemia) Qualifiers: Hyperlipidemia type: pure hypercholesterolemia Qualified Code(s): E78.00 - Pure hypercholesterolemia, unspecified; E78.0 - Pure hypercholesterolemia (6) Coronary artery disease Qualifiers: Coronary Disease-Associated Artery/Lesion type: [place] artery [place] vs. transplanted heart: [place] heart Associated angina: with unstable angina Qualified Code(s): I25.110 - Atherosclerotic heart disease of [place] coronary artery with unstable angina pectoris
[2018-01-12] MEDS: Acetaminophen 325 MG TABLET PO PRN ×2 (11:37→23:19)
[2018-01-12] MEDS: Ondansetron 4 MG/2 ML VIAL IVP PRN (12:30)
[2018-01-12 14:39] LABS: Bilirubin,Urine Negative (Negative); Blood,Urine Negative (Negative); Clarity,Urine Clear (Clear); Color,Urine Yellow (Yellow); Glucose,Urine (UA) Normal (Normal); Ketones,Urine Negative (Negative); Leukocyte Esterase,Urine Negative (Negative); Nitrite,Urine Negative (Negative); Protein,Urine 100 mg/dL (Neg-Trace); Specific Gravity,Urine 1.012 (1.010-1.025)
[2018-01-12 14:43] LABS: Hyaline Casts,Urine Few per lpf (None-Few); Squamous Epithelial Cell,Urine Many per lpf (None-Few)
[2018-01-12 14:59] LABS: Bacteria,Urine Few per hpf (None-Few)
[2018-01-13] MEDS: Isosorbide MONOnitrate (24 HR) 30 MG TAB.ER.24H PO SCH (07:22)
[2018-01-13] MEDS: Heparin 25,000 UNIT/500 ML D5W 25,000 UNIT/500 ML BAG IVC SCH (07:22)
[2018-01-13] MEDS: amLODIPine 5 MG TABLET PO SCH (07:23)
[2018-01-13] MEDS: Aspirin Enteric Coated 81 MG Tablet PO SCH (07:23)
--- NOTE | 2018-01-13 08:53 | Cardiology Progress Note ---
Date of Encounter: 01/13/18 Time of Encounter: 08:50 Assessment and Plan (1) Coronary artery disease Current Visit: Yes Status: Acute Per Cardiology: S/P [facility] 01/09/18--Severe 3V CAD involving 2 bifurcations PDA/PLB and pLAD/1st diagonal, progressive CAD since [facility] 2016. Patent mLCx and mRCA stents. CT surgery consulted--recommend CABG on Sunday after Brilinta washout. On IV heparin drip, ASA, Statin, BB, ARB-- suspect CT surgery will stop prior to surgery, and Imdur. Brilinta stopped in anticipation of CABG. Currently chest pain-free. Clinically stable, cardiology will sign off, reconsult as needed, follow-up arranged. Discussed with Dr. Baldwin. ECHO: Impressions: LVEF 60%. Normal LV chamber size and function. Mild concentric left ventricular hypertrophy. Moderate left ventricular diastolic dysfunction. Normal right ventricular structure and function. No evidence of pulmonary hypertension. RVSP not well obtained and possibly underestimated. No significant valvular dysfunction. Left Ventricular Wall Motion: Rest Echo Findings All wall segments showed normal motion. Qualifiers: Coronary Disease-Associated Artery/Lesion type: [place] artery [place] vs. transplanted heart: [place] heart Associated angina: with unstable angina Qualified Code(s): I25.110 - Atherosclerotic heart disease of [place] coronary artery with unstable angina pectoris Discussion w patient/family: The assessment and plan as outlined above was discussed with the patient and/or family members who expressed understanding and agreement. All questions were answered. Thank you for involving us in the care of your patient. Please call with any questions. Subjective Principal diagnosis: CAD Interval history: Currently chest pain-free. Denies any concerns or complaints overnight. Denies any active bleeding or blood loss. Denies any right groin concerns or complaints. Objective Selected Entries 01/13/18 03:00 01/13/18 07:24 Temperature 98.0 F Pulse Rate 61 Respiratory Rate 16 Blood Pressure 112/70 O2 Sat by Pulse Oximetry 97 Oxygen Delivery Method Room Air General: Conversant, No Apparent Distress HEENT: Atraumatic, Normocephaly, Mucus Membranes Moist Neck: No JVD, Normal carotid pulses Cardiac: Reg Rate and Rhythm, Normal S1 and S2, No Murmur Lungs: Normal Breath Sounds, No Wheeze, Rales, Rhonchi Neuro: Alert and responsive, No focal deficits noted Abdomen: Soft, Non-Tender Skin: No rashes noted on visualized skin Musculoskeletal: No Chest Wall Tenderness Extremities: No Clubbing, No Cyanosis, No Edema, Normal Pulses Results 01/11/18 12:05 01/08/18 17:39 Active Medications Acetaminophen (Tylenol) 650 mg PO Q6HR PRN PRN Reason: Mild Pain/Fever Stop: 07/10/18 20:36 Last Admin: 01/12/18 23:19 Dose: 650 mg Amlodipine Besylate (Norvasc) 10 mg PO DAILY [facility] Stop: 07/11/18 09:01 Last Admin: 01/13/18 07:23 Dose: 10 mg Aspirin (Aspirin Ec) 81 mg PO DAILY [facility] Stop: 07/11/18 09:01 Last Admin: 01/13/18 07:23 Dose: 81 mg Aspirin (Aspirin) 81 mg PO 0600 ONE Stop: 01/15/18 06:01 Carvedilol (Coreg) 25 mg PO BIDWM [facility] PRN Reason: Protocol Stop: 07/13/18 17:01 Last Admin: 01/13/18 07:23 Dose: 25 mg Chlorhexidine Gluconate (Chlorhexidine Rinse) 15 ml MM BID MERYL Stop: 01/15/18 09:01 Heparin Sodium (Porcine) (Heparin) 4,000 unit IVP Q6HR PRN PRN Reason: SEE COMMENTS Stop: 07/13/18 10:19 Heparin Sodium (Porcine) (Heparin) 2,000 unit IVP Q6H PRN PRN Reason: SEE COMMENTS Stop: 07/13/18 10:19 Last Admin: 01/11/18 19:17 Dose: 2,000 unit Heparin Sodium/Dextrose (Heparin 25,000 Unit/500 Ml D5w) 25,000 unit in 500 mls @ 19.236 mls/hr IVC .Q24H MERYL; 7 UNIT/KG/HR PRN Reason: Protocol Stop: 07/13/18 10:31 Last Admin: 01/13/18 07:22 Dose: 8.87 unit/kg/hr, 24.4 mls/hr Cefazolin Sodium (Ancef Syringe 3,000 Mg/30 Ml) 3,000 mg in 30 mls @ 200 mls/ hr IVPB PREOP ONE Stop: 01/15/18 06:08 Isosorbide Mononitrate (Imdur) 60 mg PO DAILY [facility] Stop: 07/13/18 09:01 Last Admin: 01/13/18 07:22 Dose: 60 mg Losartan Potassium (Cozaar) 50 mg PO DAILY MERY[facility] Stop: 07/11/18 09:01 Last Admin: 01/13/18 07:22 Dose: 50 mg Metoprolol Tartrate (Lopressor) 25 mg PO 0600 ONE Stop: 01/15/18 06:01 Naloxone HCl (Narcan) 0.4 mg IVP Q2MIN PRN PRN Reason: SEE COMMENTS Stop: 07/10/18 20:36 Nitroglycerin (Nitroglycerin) 0.4 mg SL Q5MIN PRN PRN Reason: Chest Pain Stop: 07/10/18 20:37 Last Admin: 01/10/18 12:31 Dose: 0.4 mg Ondansetron HCl (Zofran) 4 mg IVP Q8HR PRN; Protocol PRN Reason: Nausea And Vomiting Stop: 07/12/18 17:54 Last Admin: 01/12/18 12:30 Dose: 4 mg Rosuvastatin Calcium (Crestor) 40 mg PO HS MERYL Stop: 07/10/18 21:01 Last Admin: 01/12/18 20:34 Dose: 40 mg Tramadol HCl (Ultram) 50 mg PO Q6HR PRN PRN Reason: Moderate Pain Stop: 07/10/18 20:36 Last Admin: 01/10/18 17:11 Dose: 50 mg Consult Discharge Plan - Plan Instructions: Chest Pain (DC), Chronic Hypertension (DC) Additional Instructions: May not return to work, pending heart surgery, next week. Date of employment return undetermined at this time Referrals: Jona Moya MD [Primary Care Provider] - 01/18/18 4:00 pm Shadi Calderón MD [Partnered Physician] -
--- NOTE | 2018-01-13 09:13 | Cardiothoracic Progress Note ---
Date of Encounter: 01/13/18 Time of Encounter: 09:12 - Assessment and plan (1) Chest pain Current Visit: Yes Status: Acute The patient is scheduled for open heart surgery on Sunday. He has no questions Qualifiers: Chest pain type: unspecified Qualified Code(s): R07.9 - Chest pain, unspecified - Subjective Interval history: The patient is on a heparin drip and had no chest pain or angina. Weight 01/11/18 01/12/18 01/13/18 23:59 23:59 23:59 Weight 132 kg 132.6 kg Lungs are clear to percussion and auscultation. Heart is in a regular rate and rhythm. - Labs 01/11/18 12:05 01/08/18 17:39 Consult Discharge Plan - Plan Instructions: Chest Pain (DC), Chronic Hypertension (DC) Additional Instructions: May not return to work, pending heart surgery, next week. Date of employment return undetermined at this time Referrals: Jona Moya MD [Primary Care Provider] - 01/18/18 4:00 pm Shadi Calderón MD [Partnered Physician] -
[2018-01-13 10:48] LABS: Estimated Average Glucose 114 mg/dl; Hemoglobin A1C 5.6 %
--- NOTE | 2018-01-13 11:56 | Internal Med Progress Note ---
Hospitalist Progress Note - Encounter Date of Encounter: 01/13/18 Time of Encounter: 11:53 - Subjective Interval History: Patient seen and examined at bedside today. Denied chest pain or shortness of breath this time. He is undergoing CABG this coming Sunday. No acute changes overnight, remains stable - Exam Vitals: Temp Pulse Resp BP Pulse Ox 97.5 F L 58 18 151/87 98 01/13/18 11:01 01/13/18 11:01/13/18 11:01/13/18 11:01/13/18 11:01 Exam: PHYSICAL EXAMINATION: GENERAL: A and O 3 HEENT: Head is normocephalic and atraumatic. Extraocular muscles are intact. Pupils are equal, round, and reactive to light and accommodation. NECK: Supple. No carotid bruits. No lymphadenopathy or thyromegaly. LUNGS: Clear to auscultation. HEART: RRR, S1, S2, without murmur rubs or gallops. ABDOMEN: Soft, nontender, and nondistended. Positive bowel sounds. No hepatosplenomegaly was noted. EXTREMITIES: Without any cyanosis, clubbing, rash, lesions or edema. NEUROLOGIC: Cranial nerves II through XII are grossly intact. SKIN: No ulceration or induration present. - Assessment and Plan (1) Unstable angina Current Visit: Yes Status: Acute Assessment and Plan: s/p [facility] severe 3 vessel disease involving 2 bifurcations, PDA/PLB and P LAD first diagonal. Patient has a history of progressively CAD with optimization of medical therapy since [facility] 2016. Plan is to undergo CABG this coming Sunday01/15/18. Initially patient wanted a second opinion in [place] however has now opted out of second opinion. Imdur has been increased to 60 mg daily but he continues to have intermittent chest pain. continue aspirin, statin, beta annmarie, ARB. Brilinta stopped in anticipation of CABG. Resume heparin drip 01/12- Plan for CABG Sunday01/15/18, no return of chest pain overnight. continue heparin gtt, cardio and CTS following 01/13- CABG planned for 01/[address] Schneider. Continue heparin gtt, denies chest pain, remains hemodynamically stable. (2) HTN (hypertension) Current Visit: No Status: Chronic Assessment and Plan: Per history, mild HTN this afternoon, monitor, continue home meds, uptitrate PRN (3) HLD (hyperlipidemia) Current Visit: No Status: Chronic Assessment and Plan: Statin (4) Abnormal nuclear stress test Current Visit: No Status: Acute Assessment and Plan: Low level exercise/ pharmacologic stress ECG is negative for ischemia at level of heart rate achieved. Gated EF = 54%. Small sized, mild intensity, reversibly inferior perfusion defect possibly due to ischemia. CABG 01/16/18 (5) Morbid obesity Current Visit: Yes Status: Chronic Assessment and Plan: Discussed lifestyle modifications, dietary changes and weight-loss (6) Coronary artery disease Current Visit: Yes Status: Acute Assessment and Plan: As above denies any chest pain on heparin gtt awaiting CABG 01/[address] Schneider (7) DVT prophylaxis Current Visit: No Status: Resolved Assessment and Plan: Heparin gtt - Time Spent with Patient Total time spent is greater than 50% in coordination of care (as documented) at patient's floor/unit and/or counseling patient: less than 15 minutes Plan of Care Discussed with: patient Internal Medicine: Result - Labs CBC & Chem 7: 01/11/18 12:05 01/08/18 17:39 Labs: Urine 01/12/18 Range/Units 14:22 Urine Color Yellow (Yellow) Urine Clarity Clear (Clear) Urine pH 7.0 (5.0-8.0) pH Units Ur Specific [place] 1.012 (1.010-1.025) Urine Protein 100 H (Neg-Trace) mg/dL Urine Glucose (UA) Normal (Normal) mg/dL - ABG Interpretation ABG results: PT/INR, D-dimer PT 12.3 Seconds (9.4-12.1) H 01/11/18 10:36 Consult Discharge Plan - Plan Instructions: Chest Pain (DC), Chronic Hypertension (DC) Additional Instructions: May not return to work, pending heart surgery, next week. Date of employment return undetermined at this time Referrals: Jona Moya MD [Primary Care Provider] - 01/18/18 4:00 pm Shadi Calderón MD [Partnered Physician] - (2) HTN (hypertension) Qualifiers: Hypertension type: essential hypertension Qualified Code(s): I10 - Essential (primary) hypertension (3) HLD (hyperlipidemia) Qualifiers: Hyperlipidemia type: pure hypercholesterolemia Qualified Code(s): E78.00 - Pure hypercholesterolemia, unspecified; E78.0 - Pure hypercholesterolemia (6) Coronary artery disease Qualifiers: Coronary Disease-Associated Artery/Lesion type: [place] artery [place] vs. transplanted heart: [place] heart Associated angina: with unstable angina Qualified Code(s): I25.110 - Atherosclerotic heart disease of [place] coronary artery with unstable angina pectoris
[2018-01-14 00:49] LABS: Basophils % 0.3 %; Eosinophils # 0.2 K/mcL (0.0-0.6); Eosinophils % 2.8 %; Hematocrit 37.9 % (37.5-50.1); Immature Granulocytes % 0.2 % (0-4); Lymphocytes % 34.1 %; Mean Corpuscular HGB Conc 34.3 g/dL (31.6-35.5); Mean Corpuscular Hemoglobin 29.5 pg (28.0-33.3); Mean Corpuscular Volume 86.1 fL (83.0-100.0); Mean Platelet Volume 10.6 fL (9.4-12.4); Monocytes # 0.3 K/mcL (0.0-1.3); Monocytes % 5.9 %; Neutrophils # 3.3 K/mcL (1.6-8.9); Platelet Count 158 K/mcL (140-400); Red Cell Distribution Width 12.3 % (11.5-14.5); Segmented Neutrophils % 56.7 %
[2018-01-14 01:08] LABS: BUN/Creatinine Ratio 13 (6-26); Blood Urea Nitrogen 12 mg/dL (6-20); Calcium 9.9 mg/dL (8.6-10.3); Carbon Dioxide 29 mEq/L (23-29); Chloride 104 mEq/L (98-107); Glucose 101 mg/dL (70-105); Osmolality,Calculated 288 (280-300); Potassium 3.5 mEq/L (3.5-5.1); Sodium 139 mEq/L (136-145); eGFR For Non-African Americans > 60 (> 60)
[2018-01-14] MEDS: Heparin 25,000 UNIT/500 ML D5W 25,000 UNIT/500 ML BAG IVC SCH (04:13)
[2018-01-14] MEDS: Isosorbide MONOnitrate (24 HR) 30 MG TAB.ER.24H PO SCH (09:00)
[2018-01-14] MEDS: Aspirin Enteric Coated 81 MG Tablet PO SCH (09:01)
[2018-01-14] MEDS: amLODIPine 5 MG TABLET PO SCH (09:01)
--- NOTE | 2018-01-14 09:42 | Internal Med Progress Note ---
Hospitalist Progress Note - Encounter Date of Encounter: 01/14/18 Time of Encounter: 09:40 - Subjective Interval History: No acute changes overnight, he is to undergo a CABG procedure tomorrow 01/15. - Exam Vitals: Temp Pulse Resp BP Pulse Ox 97.9 F 66 15 116/66 94 01/14/18 07:08 01/14/18 08:53 01/14/18 07:08 01/14/18 07:08 01/14/18 07:08 Exam: PHYSICAL EXAMINATION: GENERAL: A and O 3 HEENT: Head is normocephalic and atraumatic. Extraocular muscles are intact. Pupils are equal, round, and reactive to light and accommodation. NECK: Supple. No carotid bruits. No lymphadenopathy or thyromegaly. LUNGS: Clear to auscultation. HEART: RRR, S1, S2, no murmur rubs or gallops. ABDOMEN: Soft, nontender, and nondistended. Positive bowel sounds. No hepatosplenomegaly was noted. EXTREMITIES: Without any cyanosis, clubbing, rash, lesions or edema. NEUROLOGIC: Cranial nerves II through XII are grossly intact. SKIN: No ulceration or induration present. - Assessment and Plan (1) Unstable angina Current Visit: Yes Status: Acute Assessment and Plan: s/p [facility] severe 3 vessel disease involving 2 bifurcations, PDA/PLB and P LAD first diagonal. Patient has a history of progressively CAD with optimization of medical therapy since [facility] 2016. Plan is to undergo CABG this coming Sunday01/15/18. Initially patient wanted a second opinion in [place] however has now opted out of second opinion. Imdur has been increased to 60 mg daily but he continues to have intermittent chest pain. continue aspirin, statin, beta annmarie, ARB. Brilinta stopped in anticipation of CABG. Resume heparin drip 01/12- Plan for CABG Sunday01/15/18, no return of chest pain overnight. continue heparin gtt, cardio and CTS following 01/13- CABG planned for 01/[address] Schneider. Continue heparin gtt, denies chest pain, remains hemodynamically stable. 26--severe 3V disease involving 2 bifurcations PDA/PLB and PLE DA/first diagonal. He is to undergo a CABG procedure on 01/15. Continues to be clinically stable. Brilinta has been held in anticipation of CABG. Continue heparin drip until 5 AM 01/15. (2) HTN (hypertension) Current Visit: No Status: Chronic Assessment and Plan: Per history, controlled, monitor, continue home meds, uptitrate PRN (3) HLD (hyperlipidemia) Current Visit: No Status: Chronic Assessment and Plan: Continue Statin (4) Abnormal nuclear stress test Current Visit: No Status: Acute Assessment and Plan: Low level exercise/ pharmacologic stress ECG is negative for ischemia at level of heart rate achieved. Gated EF = 54%. Small sized, mild intensity, reversibly inferior perfusion defect possibly due to ischemia. CABG 01/16/18 (5) Morbid obesity Current Visit: Yes Status: Chronic Assessment and Plan: Discussed lifestyle modifications, dietary changes and weight loss. Discussed cardiac and diabetic diet (6) Coronary artery disease Current Visit: Yes Status: Acute Assessment and Plan: As above Continues to deny chest pain on heparin gtt awaiting CABG Sunday, 01/[address] Schneider (7) DVT prophylaxis Current Visit: No Status: Resolved Assessment and Plan: Heparin gtt - Time Spent with Patient Total time spent is greater than 50% in coordination of care (as documented) at patient's floor/unit and/or counseling patient: less than 15 minutes Plan of Care Discussed with: patient Internal Medicine: Result - Labs CBC & Chem 7: 01/14/18 00:38 01/14/18 00:38 Labs: Short CBC 01/14/18 Range/Units 00:38 WBC 5.7 (4.3-11.1) K/mcL Hgb 13.0 (12.9-16.9) g/dL Hct 37.9 (37.5-50.1) % Plt Count 158 (140-400) K/mcL Neutrophils # 3.3 (1.6-8.9) K/mcL BMP 01/14/18 00:38 Sodium 139 Potassium 3.5 Chloride 104 Carbon Dioxide 29 BUN 12 Creatinine 0.93 Glucose 101 Calcium 9.9 - ABG Interpretation ABG results: PT/INR, D-dimer PT 12.3 Seconds (9.4-12.1) H 01/11/18 10:36 Consult Discharge Plan - Plan Instructions: Chest Pain (DC), Chronic Hypertension (DC) Additional Instructions: May not return to work, pending heart surgery, next week. Date of employment return undetermined at this time Referrals: Jona Moya MD [Primary Care Provider] - 01/18/18 4:00 pm Shadi Calderón MD [Partnered Physician] - (2) HTN (hypertension) Qualifiers: Hypertension type: essential hypertension Qualified Code(s): I10 - Essential (primary) hypertension (3) HLD (hyperlipidemia) Qualifiers: Hyperlipidemia type: pure hypercholesterolemia Qualified Code(s): E78.00 - Pure hypercholesterolemia, unspecified; E78.0 - Pure hypercholesterolemia (6) Coronary artery disease Qualifiers: Coronary Disease-Associated Artery/Lesion type: [place] artery [place] vs. transplanted heart: [place] heart Associated angina: with unstable angina Qualified Code(s): I25.110 - Atherosclerotic heart disease of [place] coronary artery with unstable angina pectoris
--- NOTE | 2018-01-14 11:41 | Cardiothoracic Progress Note ---
Date of Encounter: 01/14/18 Time of Encounter: 11:12 - Assessment and plan (1) NSTEMI (non-ST elevated myocardial infarction) Current Visit: No Status: Acute The patient is a 42-year-old hypertensive man with hypercholesterolemia and known CAD. He underwent LCx and RCA stent placement in 2016; however, has had recurrent angina. Repeat cardiac catheterization showed progression of his [place] coronary disease with patent coronary stents. He has severe 3 vessel CAD and an LVEF 50%. He has been recommended for CABG. The STS risk calculator reveals an operative mortality risk 0.42%, permanent stroke risk 0.24 %, deep sternal wound infection risk 0.35%, renal failure risk 1.2%, and reoperation risk 2.99%. The patient understands the procedure, benefits, alternatives, and risks as outlined above. He is scheduled for CABG on Sunday , 01/15/2018. The assessment and plan as outlined above was discussed with the patient and/or family members who expressed understanding and agreement. All questions were answered. - Subjective Interval history: The patient remained hemodynamic stable overnight. He has had no recurrent substernal chest pain. He has no complaints. Vital Signs, Last 4 Hours Pulse 01/14/18 08:53 66 Weight 01/12/18 01/13/18 01/14/18 23:59 23:59 23:59 Weight 132 kg 132.6 kg 133 kg - Physical Examination General: Conversant, No Apparent Distress Neck: No JVD, Normal carotid pulses Cardiac: Reg Rate and Rhythm, Normal S1 and S2, No Murmur Lungs: Normal Breath Sounds, No Wheeze, Rales, Rhonchi Neuro: Alert and responsive, No focal deficits noted Vascular: Normal capillary refill Musculoskeletal: No Chest Wall Tenderness Extremities: No Clubbing, No Cyanosis, No Edema - Labs 01/14/18 00:38 01/14/18 00:38 Lab Results, Last 24 hours 01/14/18 01/14/18 00:38 00:38 WBC 5.7 Hgb 13.0 Hct 37.9 Plt Count 158 Sodium 139 Potassium 3.5 Chloride 104 Carbon Dioxide 29 BUN 12 Creatinine 0.93 Glucose 101 Calcium 9.9 Consult Discharge Plan - Plan Instructions: Chest Pain (DC), Chronic Hypertension (DC) Additional Instructions: May not return to work, pending heart surgery, next week. Date of employment return undetermined at this time Referrals: Jona Moya MD [Primary Care Provider] - 01/18/18 4:00 pm Shadi Calderón MD [Partnered Physician] -
[2018-01-14] MEDS: Chlorhexidine Rinse 15 ML MOUTHWASH MM SCH (20:32)
[2018-01-15] MEDS: Heparin 25,000 UNIT/500 ML D5W 25,000 UNIT/500 ML BAG IVC SCH (00:44)
[2018-01-15] MEDS ORDERED: Aspirin 81 MG TAB.CHEW PO ONE (06:00)
[2018-01-15] MEDS ORDERED: CeFAZolin Syr 3,000MG/30 ML 3,000 MG/30 ML SYRINGE IVPB ONE (06:00)
[2018-01-15] MEDS: Chlorhexidine Rinse 15 ML MOUTHWASH MM SCH ×2 (06:17→19:41)
[2018-01-15] MEDS ORDERED: Famotidine 20 MG/2 ML VIAL ONE (06:47)
[2018-01-15] MEDS ORDERED: *HR* PHENYLEPHRINE 1,000 MCG/10 ML SYRINGE IVP ONE (06:47)
[2018-01-15] MEDS ORDERED: *HR* Etomidate 20 MG/10 ML AMPUL IVP ONE (06:47)
[2018-01-15] MEDS ORDERED: *HR* Rocuronium Bromide 50 MG/5 ML VIAL ONE ×3 (06:47→11:06)
[2018-01-15] MEDS ORDERED: Tranexamic Acid 1,000 MG/10 ML VIAL ONE ×2 (06:48→08:49)
[2018-01-15] MEDS ORDERED: Protamine Sulfate 250 MG/25 ML VIAL IVP ONE (06:48)
[2018-01-15] MEDS ORDERED: *HR* Midazolam HCl 5 MG/5 ML VIAL IVP ONE ×2 (06:52→09:31)
[2018-01-15] MEDS ORDERED: *HR* FentaNYL (PF) 1,000 MCG/20 ML VIAL ONE (06:53)
[2018-01-15] MEDS ORDERED: Nitroglycerin 25 MG/250 ML INFUS..BTL IVC ONE ×2 (06:56→11:44)
[2018-01-15] MEDS ORDERED: NiCARdipine 2.5 MG/10 ML Syringe IVPB ONE (06:57)
--- NOTE | 2018-01-15 07:31 | Anesthesia Evaluation PreOp ---
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: Denies Any Significant HX Other Medical History: Renal (stones), GERD Anesthesia History: No Prior Anesthetic Complications, Past Anesthesia (stent, stones,appy) Alcohol Use: none Drug use: none Medications and Allergies Amlodipine Besylate 10 mg PO DAILY 12/01/16 [History] Aspirin Enteric Coated [Aspirin EC] 81 mg PO DAILY #30 12/03/16 [Rx] Carvedilol [Coreg] 12.5 mg PO BIDWM #120 tab 12/03/16 [Rx] Nitroglycerin 0.4 mg SL Q5MIN PRN #30 12/03/16 [Rx] Rosuvastatin [Crestor] 40 mg PO HS #30 tab 12/03/16 [Rx] Ticagrelor [Brilinta] 90 mg PO BID #60 tab 12/03/16 [Rx] Losartan Potassium [Cozaar] 50 mg PO DAILY 06/27/17 [History] Isosorbide MONOnitrate (24 HR) [Imdur] 30 mg PO DAILY #30 tab.er.24h 06/28/17 [ Rx] 3 Allergy/AdvReac Type Severity Reaction Status Date / Time No Known Allergies Allergy Verified 12/19/16 14:10 - Meds/Allergy Pre-op Review Medications Reviewed: Yes Allergies Reviewed: Yes Beta Blockers on Current Med List: Yes If Beta Blockers taken, Date/Time (Last Dose taken): didn't take today due to bradycardia Anesthesia Results - Labs 01/14/18 00:38 01/14/18 00:38 - Imaging EKG: report reviewed Additional studies: echo and cath reviewed. Noted on OP chart with Anesthesia Exam Selected Entries 01/15/18 03:29 Temperature 98.3 F Pulse Rate 63 Respiratory Rate 16 Blood Pressure 110/71 O2 Sat by Pulse Oximetry 98 Oxygen Delivery Method Room Air Weight: 135kg BMI 43 NPO (# of Hours): 8 - HEENT Pupil (Motor): EOMI Mallampati: III Teeth: Missing, Poor dentition Oral Opening: Greater than 3 - SENIOR SYSTEMS ANALYST LOC: Oriented SENIOR SYSTEMS ANALYST Motor: Normal RUE, Normal LUE, Normal RLE, Normal LLE, Normal Face SENIOR SYSTEMS ANALYST Sensory: Normal: RUE, LUE, RLE, LLE, Face - Cardiac Rhythm: Regular Murmur: None - Pulmonary Breath Sounds: bilateral Clear Respiratory Effort: Symmetrical Anesthesia Assess/Plan ASA Score: 4 Modified Mike Scale for Level of Consciousness: Cooperative, oriented, and tranquil Anesthetic Plan: General Monitoring Plan: Standard Monitors, A-Line, PAC, RAUL Recovery Plan: ICU
[2018-01-15 08:16] LABS: ABG Base Excess 2 mEq/L (-2 to 3); ABG Chloride 103 mEq/L (98-107); ABG Glucose 103 mg/dL (60-95); ABG HCO3 29 mEq/L (21-27); ABG Ionized Calcium 1.22 mmol/L (1.15-1.35); ABG Oxygen Saturation 96 % (95-98); ABG PCO2 52 mmHg (35-45); ABG PH 7.36 pH Units (7.32-7.45); ABG PO2 88 mmHg (85-104); ABG TCO2 30 mEq/L (20-26)
[2018-01-15] MEDS ORDERED: Mannitol 25% vial 12.5 GM/50 ML VIAL IVP ONE (08:26)
[2018-01-15] MEDS ORDERED: *HR* Heparin 10,000 UNIT/10 ML VIAL IV ONE (08:26)
[2018-01-15] MEDS ORDERED: Albumin Human 25% 25 GM/100 ML IV.SOLN IV ONE (08:26)
[2018-01-15] MEDS ORDERED: Lidocaine 2% Syringe 100 MG/5 ML IV ONE (08:26)
[2018-01-15] MEDS ORDERED: Tranexamic Acid 1,000 MG/10 ML VIAL IVPB ONE (08:26)
[2018-01-15] MEDS ORDERED: *HR* Magnesium Sulfate 2 GM/50 ML PIGGYBACK IVPB ONE (08:26)
[2018-01-15] MEDS ORDERED: *HR* Phenylephrine 10 MG/ML VIAL IVC ONE (08:26)
--- NOTE | 2018-01-15 09:23 | Event Note ---
Date of Encounter: 01/15/18 Time of Encounter: 09:19 Patient was already taken to surgery for scheduled CABG early this am, prior to my arrival on the floor. Cardiothoracic surgery will resume care of the patient in ICU postoperatively
[2018-01-15 09:29] LABS: ABG Base Excess -1 mEq/L (-2 to 3); ABG Chloride 107 mEq/L (98-107); ABG Glucose 121 mg/dL (60-95); ABG HCO3 24 mEq/L (21-27); ABG Ionized Calcium 1.03 mmol/L (1.15-1.35); ABG Oxygen Saturation 99 % (95-98); ABG PCO2 39 mmHg (35-45); ABG PO2 114 mmHg (85-104); ABG TCO2 25 mEq/L (20-26)
[2018-01-15] MEDS ORDERED: *HR* FentaNYL (PF) 250 MCG/5 ML VIAL ONE (09:31)
--- NOTE | 2018-01-15 09:58 | Anesthesia Procedures ---
Date of Encounter: 01/15/18 Time of Encounter: 07:50 Procedures: Anesthesia - Arterial Line Consent obtained: written consent Time out performed: Yes Sedation: Versed (mg): 3 Sedation: Fentanyl (mcg): 150 Supplemental Oxygen via Nasal Cannula (L/min): 2 Local Anesthetic: Lidocaine 1% Amount of Anesthetic used (mls): 1 Size (Gauge): 20 Length (inches): 5 Technique Used: sterile prep, guide wire technique, direct puncture technique Post-Procedure: line taped into place, dry sterile dressing placed Patient tolerated procedure: well, no complications Complications: none Site: Radial L - Central Line Placement Right IJ Consent obtained: written consent Time out performed: Yes Patient placed on monitor/pulse ox: Yes prep: mask, gown, gloves Central line prep: Chlorhexidine scrub Ultrasound used for placement: Yes Technique: Seldinger Lumen Inserted: Introducer Post procedure: sutured in place, good blood return, all ports aspirated, flushed, capped, sterile dressing applied Patient tolerated procedure: well, no complications Complications: none (introducer placed easily, swan placed without arrythmias, wedge approx 52 cm)
[2018-01-15 10:09] LABS: ABG Base Excess 3 mEq/L (-2 to 3); ABG Chloride 98 mEq/L (98-107); ABG Glucose 178 mg/dL (60-95); ABG HCO3 27 mEq/L (21-27); ABG Ionized Calcium 1.01 mmol/L (1.15-1.35); ABG Oxygen Saturation 100 % (95-98); ABG PCO2 40 mmHg (35-45); ABG PH 7.44 pH Units (7.32-7.45); ABG PO2 608 mmHg (85-104); ABG TCO2 28 mEq/L (20-26)
[2018-01-15 10:32] LABS: ABG Base Excess 2 mEq/L (-2 to 3); ABG Chloride 99 mEq/L (98-107); ABG Glucose 175 mg/dL (60-95); ABG HCO3 26 mEq/L (21-27); ABG Ionized Calcium 1.07 mmol/L (1.15-1.35); ABG Oxygen Saturation 100 % (95-98); ABG PCO2 40 mmHg (35-45); ABG PH 7.43 pH Units (7.32-7.45); ABG PO2 483 mmHg (85-104); ABG TCO2 28 mEq/L (20-26)
[2018-01-15 10:40] LABS: VBG Base Excess 1 mEq/L; VBG Chloride 99 mEq/L (98-107); VBG Glucose 161 mg/dl (65-95); VBG HCO3 26 mEq/L (21-27); VBG Ionized Calcium 1.08 mmol/L (1.15-1.35); VBG Oxygen Saturation 73 %; VBG PCO2 42 mmHg (41-51); VBG PO2 38 mmHg (25-50); VBG Total CO2 27 mEq/L
[2018-01-15 11:12] LABS: ABG Base Excess 4 mEq/L (-2 to 3); ABG Chloride 99 mEq/L (98-107); ABG Glucose 168 mg/dL (60-95); ABG HCO3 28 mEq/L (21-27); ABG Ionized Calcium 1.09 mmol/L (1.15-1.35); ABG Oxygen Saturation 100 % (95-98); ABG PCO2 41 mmHg (35-45); ABG PH 7.44 pH Units (7.32-7.45); ABG PO2 443 mmHg (85-104); ABG TCO2 29 mEq/L (20-26)
[2018-01-15 11:31] LABS: ABG Base Excess 3 mEq/L (-2 to 3); ABG Chloride 101 mEq/L (98-107); ABG Glucose 149 mg/dL (60-95); ABG HCO3 28 mEq/L (21-27); ABG Ionized Calcium 1.07 mmol/L (1.15-1.35); ABG Oxygen Saturation 100 % (95-98); ABG PCO2 43 mmHg (35-45); ABG PH 7.43 pH Units (7.32-7.45); ABG PO2 439 mmHg (85-104); ABG TCO2 29 mEq/L (20-26)
[2018-01-15] MEDS ORDERED: Albumin Human 5% 50.0 GM/1,000 ML VIAL ONE (11:44)
[2018-01-15] MEDS ORDERED: *HR* Amiodarone 150 MG/3 ML VIAL IVPB ONE (12:10)
[2018-01-15] MEDS ORDERED: Amiodarone Premix 360 MG/200 ML BAG IVC ONE ×2 (12:10→13:25)
[2018-01-15 12:12] LABS: ABG Base Excess 4 mEq/L (-2 to 3); ABG Chloride 103 mEq/L (98-107); ABG Glucose 114 mg/dL (60-95); ABG HCO3 29 mEq/L (21-27); ABG Ionized Calcium 1.19 mmol/L (1.15-1.35); ABG Oxygen Saturation 100 % (95-98); ABG PCO2 44 mmHg (35-45); ABG PH 7.42 pH Units (7.32-7.45); ABG PO2 470 mmHg (85-104); ABG TCO2 30 mEq/L (20-26)
[2018-01-15 12:36] LABS: ABG Base Excess 1 mEq/L (-2 to 3); ABG Chloride 105 mEq/L (98-107); ABG Glucose 108 mg/dL (60-95); ABG HCO3 25 mEq/L (21-27); ABG Ionized Calcium 1.28 mmol/L (1.15-1.35); ABG Oxygen Saturation 96 % (95-98); ABG PCO2 39 mmHg (35-45); ABG PH 7.42 pH Units (7.32-7.45); ABG PO2 82 mmHg (85-104); ABG TCO2 26 mEq/L (20-26)
[2018-01-15] MEDS: Aspirin Enteric Coated 81 MG Tablet PO SCH (12:46)
[2018-01-15] MEDS: amLODIPine 5 MG TABLET PO SCH (12:47)
[2018-01-15] MEDS: Isosorbide MONOnitrate (24 HR) 30 MG TAB.ER.24H PO SCH (12:47)
--- NOTE | 2018-01-15 13:07 | Operative Note ---
Date of procedure: 01/15/18 Pre-op diagnosis: NSTEMI Post-op diagnosis: same Procedure: 1. CABG5 (HATCH to LAD, sequential SVG to D1 then distal LCx, sequential SVG to PDA then PLVB). 2. Endoscopic vein harvesting, greater saphenous vein from right lower extremity. Implants: None. Complications: None. Anesthesia: GETA Surgeon: Dandy Schneider Was there an residential assistant present: Yes Washing Machine Loader: Aly Chapa Estimated blood loss (cc): 500 Specimen: None. Condition: stable Disposition: ICU Procedure in Detail: INDICATION FOR OPERATION: The patient is a 42-year-old hypertensive man with hypercholesterolemia and known CAD. He spirits to myocardial infarction in November 2016 and underwent cardiac catheterization with PCI. Stents were placed in both the LCx and RCA. The patient did well initially; however, has redeveloped exertional substernal chest pain. He complained of severe, substernal, unrelenting substernal chest heaviness. Although his troponin I levels were negative, he was admitted for further cardiac workup given his presenting symptoms and cardiac risk profile. A transthoracic echocardiogram revealed an LVEF 60% with normal left ventricular chamber size and function. Moderate left ventricular diastolic dysfunction was noted. No valvular abnormalities were noted. Subsequent cardiac catheterization revealed severe 3 vessel CAD. In particular, the patient has a 70% proximal LAD lesion, an 80-90% mid LAD lesion, a 75% proximal D1 lesion, a 60% distal LCx lesion, a 70% distal OM 2 lesion, a 50% proximal RCA lesion, a 70-80% distal RCA bifurcation lesion, a 70-80% proximal PDA lesion , and a 7080% proximal RPLB lesion. He was on Brilinta for his previous stent placement and this was stopped for 5 days prior to CABG. FINDINGS AT OPERATION: The aorta was of normal caliber without calcification. The coronary arteries measured proximally 2-3 mm in diameter and a mild to moderate calcification throughout the entire vessel. The greater saphenous vein was harvested endoscopically from the right lower extremity from the mid calf to the groin and was of good quality. Total bypass time was 135 minutes, cross-clamp time 81 minutes, intentional hypothermia of 35 degrees centigrade. DESCRIPTION OF OPERATION: After obtaining informed operative consent from the patient, he was taken to the operating room where a satisfactory general endotracheal anesthetic was induced. Appropriate monitor lines placed, and the patient's chest, abdomen, and lower extremities were prepped and draped in a sterile fashion. The greater saphenous vein was harvested endoscopically from the right lower extremity. The vein was removed, distended, and found to be of good quality. The simultaneous tissue and skin edges were reapproximated running Vicryl sutures. Simultaneously, a standard median sternotomy incision was made and the sternum divided. The HATCH was taken down from its bed and side branches divided between hemoclips. The sternum was and the pericardium opened and reflected laterally. The patient was prepared for cannulation by placing pursestring sutures the distal ascending aorta, mid-ascending aorta, and right atrial appendage. The patient was heparinized when the ACT was greater than 200 seconds, the distal ascending aorta was cannulated followed by placement of a dual stage venous cannula through the right atrial appendage and into the inferior vena cava. A stab-in antegrade metabolic cannula was placed in the mid-ascending aorta. The patient was placed on bypass and the temperature allowed to drift to 35 degrees centigrade. The distal targets were identified and the aorta was crossclamped. The patient received 1000 mL of cold antegrade crystalloid cardioplegia through the aortic root. The RPL branch was opened the [place] blade and the vein was anastomosed in end- to-side fashion using running 7-0 Prolene suture. The anastomosis found to be hemostatic. The PDA was opened be blade and the vein was opened longitudinal fashion so the [id number] anastomosis could be completed using running 7-0 Prolene suture. The anastomosis found to be hemostatic and the patient received a notice of cold antegrade Crisler cartilage up through the aortic root. The distal LCx/distal OM2 branch was opened be blade and the vein was anastomosed in an end-to-side fashion using running 7-0 Prolene suture. The anastomosis found to be hemostatic and the patient's CAD notice of cold antegrade crystalloid cardioplegia through the aortic root. The D1 branch was opened be blade and the vein was opened longitudinal fashion so the side-to- side anastomosis could be completed using running 7-0 Prolene suture. The anastomosis found to be hemostatic and the patient's today final dose of cold antegrade crystalloid cardioplegia through the aortic root. The LAD was opened be blade and the HATCH was anastomosed in an end-to-side fashion to the LAD using running 7-0 Prolene suture. The anastomosis found hemostatic and the mammary pedicle was tacked to the epicardium using interrupted 5-0 silk suture. Rewarming was begun during this anastomosis. The aortic cross-clamp was released and the heart distended. The veins were measured and cut at appropriate lengths. A partial occluding lamps placed across the mid-ascending aorta and the antegrade metabolic cannula was removed. An additional aortotomy site was made 11 blade and both sites were enlarged with 4 mm punch. The veins were anastomosed in end-to-side fashion to the aorta using a running 5-0 Prolene suture. The vein grafts were occluded with bulldog clamps and de-aired the 25-gauge needle prior to removing the partial occluding clamp. The proximal distal anastomoses were found to be hemostatic and the proximal anastomoses were marked with radiopaque loops. Two right ventricular temporary epicardial pacing lesion placed, and 3 chest tubes were placed, 2 in the mediastinum and one into the left pleural space. During rewarming the patient' s heart regained normal sinus rhythm spontaneously. When the patient's systemic temperature reached 36 degrees centigrade he was ventilated and received volume. He was weaned from bypass required no inotropic support.. Protamine was administered and the aortic and venous cannulae removed. The pursestring sutures were secured. The venous cannulation site was reinforced with a running 4-0 Prolene suture. The pericardium was loosely approximated in midline using interrupted 0 silk suture and the sternum was reapproximated using double wires. The pectoralis major fascia, rectus abdominis fascia, simultaneous tissue, and skin edges were reapproximated running Vicryl sutures. A negative pressure sterile dressing was applied to the sternotomy incision. The patient was transferred to the ICU in satisfactory postoperative condition. There were no intraoperative complications, and the instrument, needle, and sponge count were corrected and of operation. - Open Heart Detail CLAUDIA (Internal Mammary Artery) Usage: Yes Cardiopulmonary Bypass Time (mins): 135 Aortic Cross Clamp Time (mins): 81 Intentional Hypothermia Temperature (C.): 35
[2018-01-15] MEDS ORDERED: Calcium Chloride 1,000 MG in 0.9 % Sodium Chloride 100 ML IVPB PRN (13:25)
[2018-01-15] MEDS ORDERED: Insulin Regular, Human 100 UNIT/ML IV PRN (13:25)
[2018-01-15] MEDS ORDERED: Potassium Chloride 40 MEQ/200 ML BAG IVPB PRN (13:25)
[2018-01-15] MEDS ORDERED: Ondansetron 4 MG/2 ML VIAL IVP PRN (13:25)
[2018-01-15] MEDS ORDERED: *HR* Dextrose 50 % in Water (Syg) 50 ML SYRINGE ONE (13:25)
[2018-01-15] MEDS ORDERED: *HR* Dextrose 50 % in Water (Syg) 50 ML SYRINGE IVP PRN (13:25)
[2018-01-15] MEDS ORDERED: Acetaminophen 650 MG RECTAL SUPP RC PRN (13:25)
[2018-01-15] MEDS ORDERED: Insulin Human Regular 100 UNIT in 0.9 % Sodium Chloride 100 ML IVC SCH (13:30)
[2018-01-15] MEDS ORDERED: 0.9 % Sodium Chloride w KCl 20 MEQ/1,000 ML MLS IVC SCH (13:30)
[2018-01-15] MEDS ORDERED: Norepinephrine 4 MG in D5% in Water 250 ML IVC SCH (13:30)
[2018-01-15] MEDS: Nitroglycerin 25 MG/250 ML INFUS..BTL IVC SCH ×2 (13:40→16:33)
[2018-01-15 13:49] LABS: ABG Base Excess 0 mEq/L (-2 to 3); ABG HCO3 25 mEq/L (21-27); ABG Oxygen Saturation 97 % (95-98); ABG PCO2 42 mmHg (35-45); ABG PH 7.39 pH Units (7.32-7.45); ABG PO2 90 mmHg (85-104); ABG TCO2 27 mEq/L (20-26); Blood Gas Modality ASSIST CONTROL; Blood Gas PEEP 0 cm H2O; Blood Gas Respiration Rate 12; Blood Gas VT 600 cc
[2018-01-15 13:59] LABS: Basophils % 0.3 %; Eosinophils # 0.1 K/mcL (0.0-0.6); Eosinophils % 1.3 %; Hematocrit 38.3 % (37.5-50.1); Hemoglobin 13.6 g/dL (12.9-16.9); Immature Granulocytes % 0.5 % (0-4); Lymphocytes # 1.5 K/mcL (0.6-4.6); Lymphocytes % 15.2 %; Mean Corpuscular HGB Conc 35.5 g/dL (31.6-35.5); Mean Corpuscular Hemoglobin 30.6 pg (28.0-33.3); Mean Corpuscular Volume 86.1 fL (83.0-100.0); Monocytes # 0.4 K/mcL (0.0-1.3); Monocytes % 3.8 %; Neutrophils # 7.7 K/mcL (1.6-8.9); Platelet Count 102 K/mcL (140-400); Red Blood Count 4.45 M/mcL (4.19-5.50); Red Cell Distribution Width 12.1 % (11.5-14.5); Segmented Neutrophils % 78.9 %
[2018-01-15 14:05] LABS: INR 1.5
[2018-01-15 14:08] LABS: Activated Partial Thrombo Time 28.2 Seconds (26.0-36.0)
[2018-01-15 14:10] LABS: Prothrombin Time 17.1 Seconds (9.4-12.1)
[2018-01-15 14:18] LABS: BUN/Creatinine Ratio 11 (6-26); Blood Urea Nitrogen 10 mg/dL (6-20); Calcium 9.1 mg/dL (8.6-10.3); Carbon Dioxide 26 mEq/L (23-29); Chloride 106 mEq/L (98-107); Glucose 146 mg/dL (70-105); Magnesium 2.1 mg/dL (1.6-2.6); Osmolality,Calculated 292 (280-300); Potassium 2.9 mEq/L (3.5-5.1); Sodium 140 mEq/L (136-145); eGFR For Non-African Americans > 60 (> 60)
[2018-01-15] MEDS: *HR* OxyCODONE/APAP 5/325 TABLET PO PRN ×3 (14:27→23:08)
[2018-01-15] MEDS: Pantoprazole 40 MG VIAL IVP SCH (14:28)
[2018-01-15] MEDS: *HR* FentaNYL (PF) 100 MCG/2 ML VIAL IVP PRN ×4 (14:42→20:28)
[2018-01-15] MEDS: ceFAZolin sodium 3,000 MG in 0.9 % Sodium Chloride 100 ML IVPB SCH ×2 (15:23→23:13)
[2018-01-15] MEDS: Acetaminophen 325 MG TABLET PO PRN (15:37)
[2018-01-15] MEDS: niCARdipine 40 MG/200 ML MLS IVC SCH ×2 (16:32→21:17)
[2018-01-15] MEDS: Amiodarone Premix 360 MG/200 ML BAG IVC SCH ×2 (16:32→17:51)
[2018-01-15] MEDS: Metoclopramide 10 MG/2 ML VIAL IVP SCH ×2 (17:00→23:08)
[2018-01-15] MEDS: Ketorolac 15 MG/ML VIAL IVP SCH ×2 (17:00→23:08)
[2018-01-15 17:40] LABS: ABG Base Excess -1 mEq/L (-2 to 3); ABG HCO3 26 mEq/L (21-27); ABG Oxygen Saturation 97 % (95-98); ABG PCO2 49 mmHg (35-45); ABG PH 7.33 pH Units (7.32-7.45); ABG PO2 95 mmHg (85-104); ABG TCO2 27 mEq/L (20-26); Blood Gas Modality CPAP/PS; Blood Gas PEEP 5 cm H2O; Blood Gas Pressure Support 5 cm H2O; Blood Gas Respiration Rate 19; Blood Gas VT 449 cc
[2018-01-16] MEDS: Nitroglycerin 25 MG/250 ML INFUS..BTL IVC SCH (00:08)
[2018-01-16] MEDS: *HR* FentaNYL (PF) 100 MCG/2 ML VIAL IVP PRN ×3 (03:21→08:35)
[2018-01-16] MEDS: niCARdipine 40 MG/200 ML MLS IVC SCH (04:15)
[2018-01-16 04:21] LABS: Basophils % 0.5 %; Immature Granulocytes % 0.3 % (0-4)
[2018-01-16 04:23] LABS: Eosinophils # 0.2 K/mcL (0.0-0.6); Eosinophils % 2.5 %; Hematocrit 36.2 % (37.5-50.1); Lymphocytes # 1.2 K/mcL (0.6-4.6); Lymphocytes % 16.3 %; Mean Corpuscular HGB Conc 33.1 g/dL (31.6-35.5); Mean Corpuscular Hemoglobin 29.6 pg (28.0-33.3); Mean Corpuscular Volume 89.2 fL (83.0-100.0); Mean Platelet Volume 10.6 fL (9.4-12.4); Monocytes # 0.7 K/mcL (0.0-1.3); Monocytes % 8.9 %; Neutrophils # 5.4 K/mcL (1.6-8.9); Platelet Count 100 K/mcL (140-400); Red Blood Count 4.06 M/mcL (4.19-5.50); Red Cell Distribution Width 12.9 % (11.5-14.5); Segmented Neutrophils % 71.5 %
[2018-01-16 04:27] LABS: BUN/Creatinine Ratio 13 (6-26); Blood Urea Nitrogen 13 mg/dL (6-20); Calcium 8.2 mg/dL (8.6-10.3); Carbon Dioxide 25 mEq/L (23-29); Chloride 111 mEq/L (98-107); Glucose 125 mg/dL (70-105); INR 1.4; Osmolality,Calculated 300 (280-300); Potassium 4.1 mEq/L (3.5-5.1); Prothrombin Time 15.6 Seconds (9.4-12.1); Sodium 144 mEq/L (136-145); eGFR For Non-African Americans > 60 (> 60)
[2018-01-16] MEDS: Metoclopramide 10 MG/2 ML VIAL IVP SCH ×4 (04:40→23:28)
[2018-01-16] MEDS: Ketorolac 15 MG/ML VIAL IVP SCH ×4 (04:40→23:28)
[2018-01-16] MEDS: *HR* OxyCODONE/APAP 5/325 TABLET PO PRN ×5 (04:40→20:34)
--- NOTE | 2018-01-16 07:57 | Anesthesia Evaluation Post Op ---
Date of Encounter: 01/16/18 Time of Encounter: 07:55 - Vital Signs Vital Signs: Selected Entries 01/16/18 06:00 01/16/18 07:00 Temperature 98.8 F Pulse Rate 78 Respiratory Rate 14 Blood Pressure 130/75 O2 Sat by Pulse Oximetry 96 Oxygen Flow Rate (LPM) 2 Oxygen Delivery Method Nasal Cannula - Lungs Lungs: Clear Ascult./Percussion - Airway Airway: Non-obstructed - Cardiovascular Regular Rate - Mental Status Mental Status: Alert & Oriented, Answers Appropriately - Pain Pain Scale: 3 Pain Scale used: Numeric (1 - 10) - Nausea Vomiting Nausea Vomiting: Not Present - Hydration Hydration: Tolerates oral liquids, Lu catheter Notes: 01/16/18 07:56 POD#1, extubated, minimal chest tube drainage. No apparent anesthesia complications.
[2018-01-16] MEDS ORDERED: Furosemide 20 MG/2 ML VIAL IVP SCH (08:00)
--- NOTE | 2018-01-16 08:26 | Cardiothoracic Progress Note ---
Date of Encounter: 01/16/18 Time of Encounter: 08:21 - Assessment and plan (1) NSTEMI (non-ST elevated myocardial infarction) Current Visit: No Status: Acute The patient remained hemodynamically stable overnight. He is currently extubated and breathing comfortably. The arterial line, Lu catheter, and Evans-Munira catheter will be removed. The patient be transferred to the stepdown unit when a bed is available. The assessment and plan as outlined above was discussed with the patient and/or family members who expressed understanding and agreement. All questions were answered. - Subjective Procedure(s) Performed: POD#1 S/P CABG5 Interval history: The patient remained hemodynamic stable overnight. He is extubated and breathing comfortably. He has no complaints. Vital Signs, Last 4 Hours Temp Pulse Resp BP Pulse Ox 01/16/18 07:00 78 14 130/75 96 01/16/18 06:00 98.8 F 82 14 121/66 96 01/16/18 05:00 99.3 F 84 12 128/71 97 01/16/18 04:44 16 96 Oxgyen Flow Rate Oxygen Flow Rate (LPM) 2 Clinical Data, last 8 Hours Output, Chest Tube Drainage 25 Amount [Mediastinal #2] Output, Chest Tube Drainage 10 Amount [Mediastinal #2] Output, Chest Tube Drainage 5 Amount [Mediastinal #2] Output, Chest Tube Drainage 5 Amount [Mediastinal #2] Output, Chest Tube Drainage 25 Amount [Mediastinal #1] Output, Chest Tube Drainage 10 Amount [Mediastinal #1] Output, Chest Tube Drainage 15 Amount [Mediastinal #1] Output, Chest Tube Drainage 30 Amount [Mediastinal #1] Output, Chest Tube Drainage 40 Amount [Mediastinal #1] Output, Chest Tube Drainage 30 Amount [Mediastinal #1] Weight 01/14/18 01/15/18 01/16/18 23:59 23:59 23:59 Weight 133 kg 135.1 kg 136.4 kg - Physical Examination General: Conversant, No Apparent Distress Neck: No JVD, Normal carotid pulses Cardiac: Reg Rate and Rhythm, Normal S1 and S2, No Murmur Incision: No signs of infection, Dry/intact dressing Sternum: Stable Chest tubes: Minimal drainage, Other (No air leak) Lungs: Normal Breath Sounds, No Wheeze, Rales, Rhonchi Neuro: Alert and responsive, No focal deficits noted Vascular: Normal capillary refill Extremities: No Clubbing, No Cyanosis, No Edema, Normal Pulses - Labs 01/16/18 03:55 01/16/18 03:55 Lab Results, Last 24 hours 01/15/18 01/15/18 01/15/18 13:40 13:40 13:40 WBC 9.7 D Hgb 13.6 Hct 38.3 Plt Count 102 L INR 1.5 APTT 28.2 Sodium 140 Potassium 2.9 L Chloride 106 Carbon Dioxide 26 BUN 10 Creatinine 0.94 Glucose 146 H Calcium 9.1 Magnesium 2.1 01/15/18 01/16/18 01/16/18 17:35 03:55 03:55 WBC 7.6 Hgb 12.0 L D Hct 36.2 L Plt Count 100 L INR 1.4 APTT 30.0 Sodium Potassium 4.3 D Chloride Carbon Dioxide BUN Creatinine Glucose Calcium Magnesium 01/16/18 03:55 WBC Hgb Hct Plt Count INR APTT Sodium 144 Potassium 4.1 Chloride 111 H Carbon Dioxide 25 BUN 13 Creatinine 1.02 Glucose 125 H Calcium 8.2 L Magnesium 2.0 - Imaging Chest Xray: image reviewed (No pneumothorax. Minimal bibasilar atelectasis/ infiltrates.) - VTE Documentation of Mechanical Device: Intermittent pneumatic compression device Consult Discharge Plan - Plan Instructions: Chest Pain (DC), Chronic Hypertension (DC) Additional Instructions: May not return to work, pending heart surgery, next week. Date of employment return undetermined at this time Referrals: Jona Moya MD [Primary Care Provider] - 01/18/18 4:00 pm Shadi Calderón MD [Partnered Physician] -
[2018-01-16] MEDS: Pantoprazole 40 MG VIAL IVP SCH (08:35)
[2018-01-16] MEDS: Chlorhexidine Rinse 15 ML MOUTHWASH MM SCH ×2 (08:35→20:33)
[2018-01-16] MEDS: Amiodarone Premix 360 MG/200 ML BAG IVC SCH (08:36)
[2018-01-16] MEDS ORDERED: Nitroglycerin 0.4 MG TAB.SUBL SL PRN (09:30)
[2018-01-16] MEDS ORDERED: D5% in Water 1,000 ML IVC PRN (09:30)
[2018-01-16] MEDS ORDERED: Acetaminophen 325 MG TABLET PO PRN (09:30)
[2018-01-16] MEDS ORDERED: Insulin Regular, Human 100 UNIT/ML IV PRN (09:30)
[2018-01-16] MEDS ORDERED: Dextrose Gel 15 GM/37.5 ML TUBE PO PRN ×2 (09:30)
[2018-01-16] MEDS ORDERED: *HR* Dextrose 50 % in Water (Syg) 50 ML SYRINGE IVP PRN (09:30)
[2018-01-16] MEDS ORDERED: *HR* FentaNYL (PF) 100 MCG/2 ML VIAL IVP PRN (09:30)
[2018-01-16] MEDS ORDERED: Insulin Human Regular 100 UNIT in 0.9 % Sodium Chloride 100 ML IVC SCH (09:30)
[2018-01-16] MEDS ORDERED: Naloxone 0.4 MG/ML INJ IVP PRN (09:30)
[2018-01-16] MEDS ORDERED: Ondansetron 4 MG/2 ML VIAL IVP PRN (09:30)
[2018-01-16] MEDS: *HR* Amiodarone 200 MG TABLET PO SCH (10:28)
[2018-01-16] MEDS: Insulin LISPRO 300 UNITS/3 ML VIAL SQ SCH ×3 (11:42→20:45)
[2018-01-16] MEDS: Furosemide 20 MG/2 ML VIAL IVP SCH (16:52)
[2018-01-17] MEDS: *HR* OxyCODONE/APAP 5/325 TABLET PO PRN ×3 (03:20→21:06)
[2018-01-17] MEDS: Metoclopramide 10 MG/2 ML VIAL IVP SCH ×3 (05:47→17:12)
[2018-01-17] MEDS: Ketorolac 15 MG/ML VIAL IVP SCH ×3 (05:47→17:12)
--- NOTE | 2018-01-17 07:41 | Cardiothoracic Progress Note ---
Date of Encounter: 01/17/18 Time of Encounter: 07:39 - Assessment and plan (1) NSTEMI (non-ST elevated myocardial infarction) Current Visit: No Status: Acute The patient remained hemodynamically stable overnight. He is develop postoperative atrial fibrillation which is being treated medically with an amiodarone and beta blockers. The chest tubes were removed. The patient will begin ambulating in the hallways today. The assessment and plan as outlined above was discussed with the patient and/or family members who expressed understanding and agreement. All questions were answered. - Subjective Procedure(s) Performed: POD#2 S/P CABG5 Interval history: The patient remained hemodynamic stable overnight. He has no complaints. Vital Signs, Last 4 Hours Resp Pulse Ox 01/17/18 04:02 18 97 Oxgyen Flow Rate Oxygen Flow Rate (LPM) 2 Clinical Data, last 8 Hours Output, Chest Tube Drainage 15 Amount [Mediastinal #2] Output, Chest Tube Drainage 0 Amount [Mediastinal #2] Output, Chest Tube Drainage 30 Amount [Mediastinal #1] Output, Chest Tube Drainage 0 Amount [Mediastinal #1] Output, Urine Amount 250 Weight 01/15/18 01/16/18 01/17/18 23:59 23:59 23:59 Weight 135.1 kg 136.4 kg 137.2 kg - Physical Examination General: Conversant, No Apparent Distress Neck: No JVD, Normal carotid pulses Cardiac: Normal S1 and S2, No Murmur, Other (Irregular rate and rhythm (atrial fibrillation)) Incision: No signs of infection, Dry/intact dressing Sternum: Stable Chest tubes: Minimal drainage, Other (No air leak) Pacing Wires: In place Lungs: Normal Breath Sounds, No Wheeze, Rales, Rhonchi Neuro: Alert and responsive, No focal deficits noted Vascular: Normal capillary refill Musculoskeletal: No Chest Wall Tenderness Extremities: No Clubbing, No Cyanosis, No Edema, Normal Pulses - Labs 01/16/18 03:55 01/16/18 03:55 - VTE Documentation of Mechanical Device: Intermittent pneumatic compression device Consult Discharge Plan - Plan Instructions: Chest Pain (DC), Chronic Hypertension (DC) Additional Instructions: May not return to work, pending heart surgery, next week. Date of employment return undetermined at this time Referrals: Jona Moya MD [Primary Care Provider] - 01/24/18 10:30 am Dandy Schneider MD [Partnered Physician] - 02/14/18 1:00 pm Khris Gupta CNP [Advanced Practice Nurse] - (office will call patient at home with follow up appointment)
--- NOTE | 2018-01-17 08:12 | Emergency Department Note ---
Disposition Clinical Impression: Chest pain Qualifiers: Chest pain type: unspecified Qualified Code(s): R07.9 - Chest pain, unspecified Disposition: Admitted As Inpatient Condition: Fair General Adult HPI - General Chief complaint: ED Chest Pain Stated complaint: CP x1 day Time Seen by Provider: 01/08/18 17:19 Source: patient Limitations: no limitations - History of Present Illness Pain Scale: 1 - Related Data Home Medications Medication Instructions Recorded Confirmed Amlodipine Besylate 10 mg PO DAILY 12/01/16 01/08/18 Losartan Potassium [Cozaar] 50 mg PO DAILY 06/27/17 01/08/18 Previous Rx's Medication Instructions Recorded Aspirin Enteric Coated [Aspirin EC] 81 mg PO DAILY #30 12/03/16 Carvedilol [Coreg] 12.5 mg PO BIDWM #120 tab 12/03/16 Nitroglycerin 0.4 mg SL Q5MIN PRN #30 12/03/16 Rosuvastatin [Crestor] 40 mg PO HS #30 tab 12/03/16 Ticagrelor [Brilinta] 90 mg PO BID #60 tab 12/03/16 Isosorbide MONOnitrate (24 HR) 30 mg PO DAILY #30 tab.er.24h 06/28/17 [Imdur] Allergies Allergy/AdvReac Type Severity Reaction Status Date / Time No Known Allergies Allergy Verified 12/19/16 14:10 Constitutional: Denies: fever, chills Cardiovascular: Reports: chest pain (Left-sided aching sensation radiates down his left arm and up to his left neck. Tried any medication make it better. Started at rest. Constant.). Denies: palpitations, syncope Respiratory: Denies: cough, dyspnea Gastrointestinal: Denies: abdominal pain, nausea, vomiting, diarrhea Genitourinary: Denies: urgency, dysuria, frequency Musculoskeletal: Reports: other (Left lower leg swelling has been getting worse over the past 2 days.). Denies: back pain Integumentary: Denies: rash Neurological: Reports: weakness (Just not feeling well over the past couple days.) Endocrine: Reports: fatigue Past Medical History - Past Medical History Medical history: Reports: coronary artery disease, GERD, hyperlipidemia, hypertension, kidney stones, liver disease, myocardial infarction Surgical history: Reports: angioplasty/stent, appendectomy Psychiatric history: Reports: no psych history - Social History Smoking Status: Former smoker Smokeless Tobacco Status: No Alcohol use: Reports: none Drug use: Reports: none Physical Exam - General Limitations: no limitations General appearance: alert, in no apparent distress Course Vital Signs Temperature 98.1 F 01/08/18 17:10 Pulse Rate 64 01/08/18 17:10 Respiratory Rate 16 01/08/18 17:10 Blood Pressure 149/103 01/08/18 17:10 O2 Sat by Pulse Oximetry 98 01/08/18 17:10 Temperature 97.8 F 01/17/18 03:16 Pulse Rate 85 01/17/18 03:16 Respiratory Rate 18 01/17/18 08:08 Blood Pressure 170/89 01/17/18 03:16 O2 Sat by Pulse Oximetry 97 01/17/18 08:08 Oxygen Delivery Oxygen Delivery Room Air Medical Decision Making - Lab Data Result diagrams: 01/16/18 03:55 01/16/18 03:55 Lab Results 01/08/18 01/08/18 01/09/18 Range/Units 17:39 17:39 00:27 WBC 5.9 (4.3-11.1) K/mcL RBC 4.41 (4.19-5.50) M/mcL Hgb 13.1 (12.9-16.9) g/dL Hct 37.8 (37.5-50.1) % MCV 85.7 (83.0-100.0) fL MCH 29.7 (28.0-33.3) pg MCHC 34.7 (31.6-35.5) g/dL RDW 12.0 (11.5-14.5) % Plt Count 166 (140-400) K/mcL MPV 10.6 (9.4-12.4) fL Immature Gran % 0.2 (0-4) % Seg Neutrophils % 60.4 % Lymphocytes % 31.1 % Monocytes % 5.4 % Eosinophils % 2.4 % Basophils % 0.5 % Neutrophils # 3.6 (1.6-8.9) K/mcL Lymphocytes # 1.8 (0.6-4.6) K/mcL Monocytes # 0.3 (0.0-1.3) K/mcL Eosinophils # 0.1 (0.0-0.6) K/mcL Basophils # 0.0 (0.0-0.2) K/mcL PT (9.4-12.1) Seconds INR Heparin Anti-Xa, Unfract (0.30-0.70) IU/mL Sodium 139 (136-145) mEq/L Potassium 3.5 (3.5-5.1) mEq/L Chloride 105 (98-107) mEq/L Carbon Dioxide 30 H (23-29) mEq/L BUN 11 (6-20) mg/dL Creatinine 1.09 (0.70-1.30) mg/dL Est GFR ( Amer) > 60 (> 60) Est GFR (Non-Af Amer) > 60 (> 60) BUN/Creatinine Ratio 10 (6-26) Glucose 108 H (70-105) mg/dL Calculated Osmolality 288 (280-300) Calcium 9.3 (8.6-10.3) mg/dL Magnesium (1.6-2.6) mg/dL Troponin I < 0.03 < 0.03 (< 0.04) ng/mL B-Natriuretic Peptide (Less than 100) pg/mL Triglycerides (< 150) mg/dL Cholesterol (< 200) mg/dL LDL Cholesterol, Calc (0-99) mg/dL VLDL Cholesterol, Calc (< 31) mg/dL HDL Cholesterol (40-59) mg/dL Cholesterol/HDL Ratio (0-4.9) Specimen Rejected 01/09/18 01/09/18 01/09/18 Range/Units 00:27 00:27 06:48 WBC (4.3-11.1) K/mcL RBC (4.19-5.50) M/mcL Hgb (12.9-16.9) g/dL Hct (37.5-50.1) % MCV (83.0-100.0) fL MCH (28.0-33.3) pg MCHC (31.6-35.5) g/dL RDW (11.5-14.5) % Plt Count (140-400) K/mcL MPV (9.4-12.4) fL Immature Gran % (0-4) % Seg Neutrophils % % Lymphocytes % % Monocytes % % Eosinophils % % Basophils % % Neutrophils # (1.6-8.9) K/mcL Lymphocytes # (0.6-4.6) K/mcL Monocytes # (0.0-1.3) K/mcL Eosinophils # (0.0-0.6) K/mcL Basophils # (0.0-0.2) K/mcL PT (9.4-12.1) Seconds INR Heparin Anti-Xa, Unfract (0.30-0.70) IU/mL Sodium (136-145) mEq/L Potassium (3.5-5.1) mEq/L Chloride (98-107) mEq/L Carbon Dioxide (23-29) mEq/L BUN (6-20) mg/dL Creatinine (0.70-1.30) mg/dL Est GFR ( Amer) (> 60) Est GFR (Non-Af Amer) (> 60) BUN/Creatinine Ratio (6-26) Glucose (70-105) mg/dL Calculated Osmolality (280-300) Calcium (8.6-10.3) mg/dL Magnesium 2.0 (1.6-2.6) mg/dL Troponin I < 0.03 (< 0.04) ng/mL B-Natriuretic Peptide 29 (Less than 100) pg/mL Triglycerides 126 (< 150) mg/dL Cholesterol 92 (< 200) mg/dL LDL Cholesterol, Calc 39 (0-99) mg/dL VLDL Cholesterol, Calc 25 (< 31) mg/dL HDL Cholesterol 28 L (40-59) mg/dL Cholesterol/HDL Ratio 3.3 (0-4.9) Specimen Rejected 01/09/18 01/11/18 01/11/18 Range/Units 10:58 10:36 10:36 WBC (4.3-11.1) K/mcL RBC (4.19-5.50) M/mcL Hgb (12.9-16.9) g/dL Hct (37.5-50.1) % MCV (83.0-100.0) fL MCH (28.0-33.3) pg MCHC (31.6-35.5) g/dL RDW (11.5-14.5) % Plt Count (140-400) K/mcL MPV (9.4-12.4) fL Immature Gran % (0-4) % Seg Neutrophils % % Lymphocytes % % Monocytes % % Eosinophils % % Basophils % % Neutrophils # (1.6-8.9) K/mcL Lymphocytes # (0.6-4.6) K/mcL Monocytes # (0.0-1.3) K/mcL Eosinophils # (0.0-0.6) K/mcL Basophils # (0.0-0.2) K/mcL PT 12.3 H (9.4-12.1) Seconds INR 1.1 Heparin Anti-Xa, Unfract 0.02 L (0.30-0.70) IU/mL Sodium (136-145) mEq/L Potassium (3.5-5.1) mEq/L Chloride (98-107) mEq/L Carbon Dioxide (23-29) mEq/L BUN (6-20) mg/dL Creatinine (0.70-1.30) mg/dL Est GFR ( Amer) (> 60) Est GFR (Non-Af Amer) (> 60) BUN/Creatinine Ratio (6-26) Glucose (70-105) mg/dL Calculated Osmolality (280-300) Calcium (8.6-10.3) mg/dL Magnesium (1.6-2.6) mg/dL Troponin I < 0.03 (< 0.04) ng/mL B-Natriuretic Peptide (Less than 100) pg/mL Triglycerides (< 150) mg/dL Cholesterol (< 200) mg/dL LDL Cholesterol, Calc (0-99) mg/dL VLDL Cholesterol, Calc (< 31) mg/dL HDL Cholesterol (40-59) mg/dL Cholesterol/HDL Ratio (0-4.9) Specimen Rejected Miscellaneous 01/11/18 Range/Units 12:05 WBC 6.4 (4.3-11.1) K/mcL RBC 4.41 (4.19-5.50) M/mcL Hgb 13.1 (12.9-16.9) g/dL Hct 38.6 (37.5-50.1) % MCV 87.5 (83.0-100.0) fL MCH 29.7 (28.0-33.3) pg MCHC 33.9 (31.6-35.5) g/dL RDW 12.0 (11.5-14.5) % Plt Count 166 (140-400) K/mcL MPV 10.9 (9.4-12.4) fL Immature Gran % (0-4) % Seg Neutrophils % % Lymphocytes % % Monocytes % % Eosinophils % % Basophils % % Neutrophils # (1.6-8.9) K/mcL Lymphocytes # (0.6-4.6) K/mcL Monocytes # (0.0-1.3) K/mcL Eosinophils # (0.0-0.6) K/mcL Basophils # (0.0-0.2) K/mcL PT (9.4-12.1) Seconds INR Heparin Anti-Xa, Unfract (0.30-0.70) IU/mL Sodium (136-145) mEq/L Potassium (3.5-5.1) mEq/L Chloride (98-107) mEq/L Carbon Dioxide (23-29) mEq/L BUN (6-20) mg/dL Creatinine (0.70-1.30) mg/dL Est GFR ( Amer) (> 60) Est GFR (Non-Af Amer) (> 60) BUN/Creatinine Ratio (6-26) Glucose (70-105) mg/dL Calculated Osmolality (280-300) Calcium (8.6-10.3) mg/dL Magnesium (1.6-2.6) mg/dL Troponin I (< 0.04) ng/mL B-Natriuretic Peptide (Less than 100) pg/mL Triglycerides (< 150) mg/dL Cholesterol (< 200) mg/dL LDL Cholesterol, Calc (0-99) mg/dL VLDL Cholesterol, Calc (< 31) mg/dL HDL Cholesterol (40-59) mg/dL Cholesterol/HDL Ratio (0-4.9) Specimen Rejected Attestation Statement - Attestation Attestation: I examined this patient and my medical decision-making was reviewed with the Resident Physician. I agree with the documented findings, disposition and treatment plan as described.
[2018-01-17] MEDS: *HR* Amiodarone 200 MG TABLET PO SCH (08:56)
[2018-01-17] MEDS: Chlorhexidine Rinse 15 ML MOUTHWASH MM SCH ×2 (08:56→21:06)
[2018-01-17] MEDS: Aspirin Enteric Coated 81 MG Tablet PO SCH (08:57)
[2018-01-17] MEDS: Furosemide 20 MG/2 ML VIAL IVP SCH ×2 (08:57→17:11)
[2018-01-17] MEDS: Insulin LISPRO 300 UNITS/3 ML VIAL SQ SCH ×4 (08:57→21:07)
--- NOTE | 2018-01-17 08:57 | Internal Med Progress Note ---
<Gallo Gillis - Last Filed: 01/17/18 16:44> Hospitalist Progress Note - Encounter Date of Encounter: 01/17/18 - Exam Vitals: Temp Pulse Resp BP Pulse Ox 100.1 F H 94 18 131/67 96 01/17/18 16:35 01/17/18 16:35 01/17/18 16:35 01/17/18 16:35 01/17/18 16:35 - Assessment and Plan (1) HTN (hypertension) Current Visit: No Status: Chronic (2) HLD (hyperlipidemia) Current Visit: No Status: Chronic (3) Abnormal nuclear stress test Current Visit: No Status: Acute (4) Morbid obesity Current Visit: Yes Status: Chronic (5) Coronary artery disease Current Visit: Yes Status: Acute (6) Unstable angina Current Visit: Yes Status: Acute - Time Spent with Patient Total time spent is greater than 50% in coordination of care (as documented) at patient's floor/unit and/or counseling patient: Internal Medicine: Result - Labs CBC & Chem 7: 01/17/18 08:52 01/17/18 08:52 Labs: Short CBC 01/17/18 Range/Units 08:52 WBC 8.3 (4.3-11.1) K/mcL Hgb 12.2 L (12.9-16.9) g/dL Hct 35.8 L (37.5-50.1) % Plt Count 90 L (140-400) K/mcL Neutrophils # 6.6 (1.6-8.9) K/mcL BMP 01/17/18 08:52 Sodium 136 Potassium 3.7 Chloride 99 Carbon Dioxide 29 BUN 18 Creatinine 0.96 Glucose 113 H Calcium 8.5 L - ABG Interpretation ABG results: ABG ABG pH 7.33 pH Units (7.32-7.45) 01/15/18 17:35 ABG pCO2 49 mmHg (35-45) H 01/15/18 17:35 ABG pO2 95 mmHg (85-104) 01/15/18 17:35 ABG O2 Saturation 97 % (95-98) 01/15/18 17:35 PT/INR, D-dimer PT 15.6 Seconds (9.4-12.1) H 01/16/18 03:55 Consult Discharge Plan - Plan Instructions: Chest Pain (DC), Chronic Hypertension (DC) Additional Instructions: May not return to work, pending heart surgery, next week. Date of employment return undetermined at this time Referrals: Jona Moya MD [Primary Care Provider] - 01/24/18 10:30 am Dandy Schneider MD [Partnered Physician] - 02/14/18 1:00 pm Khris Gupta, BUFFERER [Advanced Practice Nurse] - (office will call patient at home with follow up appointment) - Attending Attestation I performed an independent interview and examine this patient. I agree with the findings, assessment, and plan of Dr. Jansen, internal medicine internal salesperson. She has a low-grade fever with otherwise appears well. This may be postoperative fever (atelectasis, post op state), monitor. Patient states he feels comfortable. Pain is controlled. No shortness of breath. WBC nml. Pt nontoxic in appearance). Gen: NAD< AAOx3 Lung CTAB, dimin bases Ht RRR Abd soft +BS, NT Ext - no sig edema <Felipe Jansen - Last Filed: 01/17/18 18:00> Hospitalist Progress Note - Encounter Date of Encounter: 01/17/18 Time of Encounter: 08:56 - Subjective Interval History: Mr. Mcintyre is a 42M with PMH of CAD with NC in november of 2016, HLD, HTN, GERD, and nephrolithiasis. He originally presented to the EKG on 01/08 complaining of chest pain at rest, and was admitted for further evaluation of this chest pain despite negative troponins. He underwent cardiac catheterization on 01/09 which revealed severe triple vessel disease. Cardiothoracic surgery was then consulted at that time and patient underwent CABG 5 on 01/15. Today the patient is postop day 2. Patient was seen and examined at bedside. Chest tubes were removed earlier this morning. Patient has no new or acute complaints. States his pain is adequately controlled with medications. Denies any shortness of breath, headache, nausea, vomiting, numbness, or tingling. States he has no difficulty urinating and is passing flatus. Denies having much of an appetite. - Exam Vitals: Temp Pulse Resp BP Pulse Ox 99.1 F 103 18 128/90 97 01/17/18 07:30 01/17/18 07:30 01/17/18 08:08 01/17/18 08:05 01/17/18 08:08 Exam: Constitutional: Well-nourished, well-developed male. No acute distress Head: Normocephalic, atraumatic Eyes: PERRL, EOMI, conjunctiva pink, sclera anicteric Neck: Supple, trachea midline, no lymphadenopathy Lungs: Clear to auscultation bilaterally. Nonlabored breathing. No wheezes, rales, or rhonchi noted. Cardiac: Irregularly irregular rhythm. No murmurs, clicks, or rubs noted. GI: Abdomen soft, nontender, nondistended. Normoactive bowel sounds Extremities: Warm, radial pulses palpable and symmetrical. No cyanosis, pedal edema, or calf tenderness. Neuro: Alert and oriented 3. No focal deficits. Normal speech. Skin: Warm, dry, and intact. Clean, dry, and intact dressing over sternotomy incision. - Assessment and Plan (1) HTN (hypertension) Current Visit: No Status: Chronic Assessment and Plan: Hx of HTN Controlled at 131/67 Continue Norvasc 10mg Continue Carvedilol 50mg BID Continue Losartan 50mg (2) HLD (hyperlipidemia) Current Visit: No Status: Chronic Assessment and Plan: Hx of HLD Continue Crestor 40mg (3) S/P CABG x 5 Current Visit: Yes Status: Acute Assessment and Plan: POD#2 CABGx5 Midline sternotomy incision clean, dry, and intact with dressing in place Chest tubes removed by CT surgery this morning without difficulty Pt states pain is adequately controlled with medication (4) Coronary artery disease Current Visit: Yes Status: Acute Assessment and Plan: As above Continue ASA, statin, and beta-annmarie (5) Morbid obesity Current Visit: Yes Status: Chronic Assessment and Plan: chronic issue DVT Prophylaxis: EPCDs Sq Heparin - Time Spent with Patient Total time spent is greater than 50% in coordination of care (as documented) at patient's floor/unit and/or counseling patient: Internal Medicine: Result - Labs CBC & Chem 7: 01/17/18 08:52 01/17/18 08:52 - ABG Interpretation ABG results: ABG ABG pH 7.33 pH Units (7.32-7.45) 01/15/18 17:35 ABG pCO2 49 mmHg (35-45) H 01/15/18 17:35 ABG pO2 95 mmHg (85-104) 01/15/18 17:35 ABG O2 Saturation 97 % (95-98) 01/15/18 17:35 PT/INR, D-dimer PT 15.6 Seconds (9.4-12.1) H 01/16/18 03:55 - VTE Documentation of Mechanical Device: Intermittent pneumatic compression device <Gallo Gillis R - Last Filed: 01/17/18 16:44> (1) HTN (hypertension) Qualifiers: Hypertension type: essential hypertension Qualified Code(s): I10 - Essential (primary) hypertension (2) HLD (hyperlipidemia) Qualifiers: Hyperlipidemia type: pure hypercholesterolemia Qualified Code(s): E78.00 - Pure hypercholesterolemia, unspecified; E78.0 - Pure hypercholesterolemia (5) Coronary artery disease Qualifiers: Coronary Disease-Associated Artery/Lesion type: [place] artery [place] vs. transplanted heart: [place] heart Associated angina: with unstable angina Qualified Code(s): I25.110 - Atherosclerotic heart disease of [place] coronary artery with unstable angina pectoris <Felipe Jansen A - Last Filed: 01/17/18 18:00> (1) HTN (hypertension) Qualifiers: Hypertension type: essential hypertension Qualified Code(s): I10 - Essential (primary) hypertension (2) HLD (hyperlipidemia) Qualifiers: Hyperlipidemia type: pure hypercholesterolemia Qualified Code(s): E78.00 - Pure hypercholesterolemia, unspecified; E78.0 - Pure hypercholesterolemia (4) Coronary artery disease Qualifiers: Coronary Disease-Associated Artery/Lesion type: [place] artery [place] vs. transplanted heart: [place] heart Associated angina: with unstable angina Qualified Code(s): I25.110 - Atherosclerotic heart disease of [place] coronary artery with unstable angina pectoris
[2018-01-17] MEDS ORDERED: Pantoprazole 40 MG VIAL IVP SCH (09:00)
[2018-01-17] MEDS: amLODIPine 5 MG TABLET PO SCH (09:08)
[2018-01-17 11:01] LABS: Basophils % 0.2 %; Eosinophils % 1.7 %; Hemoglobin 12.2 g/dL (12.9-16.9); Immature Granulocytes % 0.5 % (0-4); Red Cell Distribution Width 12.8 % (11.5-14.5)
[2018-01-17 11:03] LABS: Eosinophils # 0.1 K/mcL (0.0-0.6); Hematocrit 35.8 % (37.5-50.1); Immature Platelets 7.9 % (1.1-6.1); Lymphocytes # 0.9 K/mcL (0.6-4.6); Lymphocytes % 11.2 %; Mean Corpuscular HGB Conc 34.1 g/dL (31.6-35.5); Mean Corpuscular Hemoglobin 30.4 pg (28.0-33.3); Mean Corpuscular Volume 89.3 fL (83.0-100.0); Monocytes # 0.6 K/mcL (0.0-1.3); Monocytes % 6.7 %; Neutrophils # 6.6 K/mcL (1.6-8.9); Nucleated Red Blood Cells 0.8 /100 WBC (0); Red Blood Count 4.01 M/mcL (4.19-5.50); Segmented Neutrophils % 79.7 %
[2018-01-17 11:08] LABS: Platelet Count 90 K/mcL (140-400)
[2018-01-17 11:27] LABS: BUN/Creatinine Ratio 19 (6-26); Blood Urea Nitrogen 18 mg/dL (6-20); Calcium 8.5 mg/dL (8.6-10.3); Carbon Dioxide 29 mEq/L (23-29); Chloride 99 mEq/L (98-107); Glucose 113 mg/dL (70-105); Osmolality,Calculated 285 (280-300); Potassium 3.7 mEq/L (3.5-5.1); Sodium 136 mEq/L (136-145); eGFR For Non-African Americans > 60 (> 60)
[2018-01-17] MEDS ORDERED: *HR* Amiodarone 200 MG TABLET PO SCH (13:15)
[2018-01-17] MEDS: *HR* Heparin 5,000 UNIT/ML VIAL SQ SCH (17:11)
[2018-01-18] MEDS: Ketorolac 15 MG/ML VIAL IVP SCH ×5 (03:20→23:39)
[2018-01-18] MEDS: Metoclopramide 10 MG/2 ML VIAL IVP SCH ×4 (03:20→17:06)
[2018-01-18] MEDS: *HR* Heparin 5,000 UNIT/ML VIAL SQ SCH ×2 (05:52→17:06)
[2018-01-18] MEDS: Furosemide 20 MG/2 ML VIAL IVP SCH (08:34)
[2018-01-18] MEDS: Aspirin Enteric Coated 81 MG Tablet PO SCH (09:20)
[2018-01-18] MEDS: *HR* Amiodarone 200 MG TABLET PO SCH (09:21)
[2018-01-18] MEDS: Insulin LISPRO 300 UNITS/3 ML VIAL SQ SCH ×4 (09:22→21:00)
[2018-01-18] MEDS: Chlorhexidine Rinse 15 ML MOUTHWASH MM SCH ×2 (09:22→20:56)
[2018-01-18] MEDS: amLODIPine 5 MG TABLET PO SCH (09:22)
[2018-01-18 10:11] LABS: Basophils % 0.4 %; Eosinophils # 0.1 K/mcL (0.0-0.6); Eosinophils % 1.6 %; Hematocrit 34.3 % (37.5-50.1); Hemoglobin 11.6 g/dL (12.9-16.9); Immature Granulocytes % 0.3 % (0-4); Lymphocytes # 1.2 K/mcL (0.6-4.6); Lymphocytes % 17.6 %; Mean Corpuscular HGB Conc 33.8 g/dL (31.6-35.5); Mean Corpuscular Hemoglobin 30.1 pg (28.0-33.3); Mean Corpuscular Volume 89.1 fL (83.0-100.0); Mean Platelet Volume 11.3 fL (9.4-12.4); Monocytes # 0.3 K/mcL (0.0-1.3); Monocytes % 4.9 %; Neutrophils # 5.2 K/mcL (1.6-8.9); Platelet Count 114 K/mcL (140-400); Red Blood Count 3.85 M/mcL (4.19-5.50); Red Cell Distribution Width 12.8 % (11.5-14.5); Segmented Neutrophils % 75.2 %
[2018-01-18 10:24] LABS: BUN/Creatinine Ratio 24 (6-26); Blood Urea Nitrogen 22 mg/dL (6-20); Calcium 8.7 mg/dL (8.6-10.3); Carbon Dioxide 29 mEq/L (23-29); Chloride 100 mEq/L (98-107); Glucose 140 mg/dL (70-105); Osmolality,Calculated 288 (280-300); Potassium 3.5 mEq/L (3.5-5.1); Sodium 136 mEq/L (136-145); eGFR For Non-African Americans > 60 (> 60)
--- NOTE | 2018-01-18 10:24 | Cardiothoracic Progress Note ---
Date of Encounter: 01/18/18 Time of Encounter: 10:22 - Assessment and plan (1) NSTEMI (non-ST elevated myocardial infarction) Current Visit: No Status: Acute The patient remained hemodynamically stable overnight. He developed postoperative atrial fibrillation which is being treated medically with an amiodarone and beta blockers. He has converted to normal sinus rhythm. The patient will begin ambulating in the hallways today. The assessment and plan as outlined above was discussed with the patient and/or family members who expressed understanding and agreement. All questions were answered. - Subjective Procedure(s) Performed: POD#3 S/P CABG5 Interval history: The patient remained hemodynamic stable overnight. He has no complaints. Vital Signs, Last 4 Hours Temp Pulse Resp BP Pulse Ox 01/18/18 08:07 98.2 F 62 18 126/78 92 01/18/18 07:43 16 97 Oxgyen Flow Rate Oxygen Flow Rate (LPM) 2 Weight 01/16/18 01/17/18 01/18/18 23:59 23:59 23:59 Weight 136.4 kg 137.2 kg - Physical Examination General: Conversant, No Apparent Distress Neck: No JVD, Normal carotid pulses Cardiac: Reg Rate and Rhythm, Normal S1 and S2, No Murmur Incision: No signs of infection, Dry/intact dressing Sternum: Stable Pacing Wires: In place Lungs: Normal Breath Sounds, No Wheeze, Rales, Rhonchi Neuro: Alert and responsive, No focal deficits noted Vascular: Normal capillary refill Musculoskeletal: No Chest Wall Tenderness Extremities: No Clubbing, No Cyanosis, No Edema, Normal Pulses - Labs 01/18/18 08:48 01/17/18 08:52 Lab Results, Last 24 hours 01/17/18 01/17/18 01/18/18 08:52 08:52 08:48 WBC 8.3 6.9 Hgb 12.2 L 11.6 L Hct 35.8 L 34.3 L Plt Count 90 L 114 L Sodium 136 Potassium 3.7 Chloride 99 Carbon Dioxide 29 BUN 18 Creatinine 0.96 Glucose 113 H Calcium 8.5 L - VTE Documentation of Mechanical Device: Intermittent pneumatic compression device Consult Discharge Plan - Plan Instructions: Chest Pain (DC), Chronic Hypertension (DC) Additional Instructions: May not return to work, pending heart surgery, next week. Date of employment return undetermined at this time Referrals: Jona Moya MD [Primary Care Provider] - 01/24/18 10:30 am Dandy Schneider MD [Partnered Physician] - 02/14/18 1:00 pm Khris Gupta CNP [Advanced Practice Nurse] - (office will call patient at home with follow up appointment)
--- NOTE | 2018-01-18 11:25 | Internal Med Progress Note ---
<Bernie Harding - Last Filed: 01/18/18 15:31> Hospitalist Progress Note - Encounter Date of Encounter: 01/18/18 Time of Encounter: 09:30 - Subjective Interval History: Mr. Mcintyre is very pleasant 42 year old male with a PMH of CAD with VT in Nov 2016, HLD, HTN, GERD and nephrolithiasis. He was admitted on 01/08 with chest pain, negative trops, and negative EKG for acute ischemia. Catheterization on showed severe triple vessel disease. He underwent CABG x 5 on 01/15. Today is post op day 3. The patient was seen and examined at bedside this morning. No acute events were reported overnight. Chest tubes were removed yesterday morning. Patient began ambulating yesterday without any difficulties. Today, patient says that his pain around his surgery sites is adequately controlled on his current medication even when he was ambulating yesterday. He still has not had a BM but he has been passing gas. He says this is normal for it to take 4-5 days post-op for his BMs to return. The patient denies any new complaints today. The patient denies any lightheadedness, dizziness, vision changes, headache, chest pain other than around his surgical sites, palpitations , shortness of breath, cough, wheezing, sputum production, abdominal pain, nausea, vomiting, bowel changes, urinary changes, edema, fever or chills. - Exam Vitals: Temp Pulse Resp BP Pulse Ox 98.2 F 62 18 126/78 92 01/18/18 08:35 01/18/18 08:35 01/18/18 08:35 01/18/18 08:35 01/18/18 08:35 Exam: Physical Exam: GENERAL: Patient is morbidly obese 42 year old male in no acute distress with appropriate affect. Alert & oriented x3. HEENT: Head is normocephalic, atraumatic, well formed. EYES: PERRLA, EOMI. MOUTH : Oropharynx clear. Mucous membranes moist. NECK: Supple, no masses, trachea midline. No JVD noted. CV: P waves and QRS complexes are visible but rhythm is irregular. No PVCs noted. Normal S1, S2 with no clicks, murmurs, gallops, or rubs. PULMONARY: Breath sounds are clear and equal bilaterally. Symmetrical chest expansion. No wheeze, rales or rhonchi. Good effort. GI: Abdomen is soft, nondistended, nontender, positive bowel sounds x 4 present and appropriate. No peritoneal signs or guarding. No palpable masses. SKIN: Warm, dry and intact. No rashes, bruising, cyanosis or non healing lesions are seen. No edema is noted. NEUROLOGICAL: Alert, awake. CN II-XII grossly intact. Patient is moving all extremities and following commands appropriately. No focal deficits are noted. Muscle strength 5/5 x 4 extremities. VASCULAR/EXTREMITIES: No cyanosis, clubbing, or edema in lower extremities. - Assessment and Plan (1) Unstable angina Current Visit: Yes Status: Acute Assessment and Plan: Patient initially presented with unstable angina on 01/08. His serial troponins were not elevated. He showed no signs of acute ischemia on EKG. He had a previous VT in Nov 2016 that required two stents. Because of his cardiac history and new onset angina he was admitted for further evaluation. On catheterization he was found to have severe triple vessel disease and was taken for a CABG on 01/15 where 5 grafts were placed. Patient ambulated without difficulty yesterday. His chest tubes were removed yesterday. His pain is adequately controlled with his current regimen. Cardiothoracic is planning for discharge on Sunday - POD #3 CABG x 5 - Midline sternotomy incision was covered with clean dressings, no sign of discharge soaked through the dressings - Chest tube incisions clean, dry, intact. - Continue current pain regimen - Activity as tolerated - encourage ambulation - Diet as tolerated (2) S/P CABG x 5 Current Visit: Yes Status: Acute Assessment and Plan: Plan as above plus: Patient developed a low grade fever yesterday but has been afebrile since. He has not been experiencing shortness of breath but he just started ambulating yesterday. Suspect that his low grade fever was due to atelectasis that has since resolved. (3) Coronary artery disease Current Visit: Yes Status: Chronic Assessment and Plan: Patient has a history of HTN, HLD, and VT in Nov 2016 that required 2 stents. He underwent CABG x 5 on 01/15 for severe triple coronary artery disease that was seen on catheterization following his presentation with unstable angina. Plan as above plus: - Will continue ASA, statin, and beta annmarie - Patient has been counseled on lifestyle modifications including healthy eating habits, medication compliance, cardiac rehab, and follow up as directed by cardiothoracics (4) Morbid obesity Current Visit: Yes Status: Chronic Assessment and Plan: Patient has been counseled on his current state of health and how he can make some lifestyle changes to decrease his changes of developing worsening CAD. He is amenable to these changes. (5) HLD (hyperlipidemia) Current Visit: No Status: Chronic Assessment and Plan: Patient has a history of hyperlipidemia. He is currently on Crestor 40mg. We will continue this. (6) HTN (hypertension) Current Visit: No Status: Chronic Assessment and Plan: Patient has a history of HTN. He is currently controlled at 126/78. - Continue Norvasc 10mg - Continue Carvedilol 50 mg BID - Continue Losartan 50 mg (7) DVT prophylaxis Current Visit: No Status: Acute Assessment and Plan: EPCDs 5000U SQ Heparin Q12H - Time Spent with Patient Total time spent is greater than 50% in coordination of care (as documented) at patient's floor/unit and/or counseling patient: 25 - 35 minutes Plan of Care Discussed with: patient Internal Medicine: Result - Labs CBC & Chem 7: 01/18/18 08:48 01/18/18 08:48 Labs: Short CBC 01/18/18 Range/Units 08:48 WBC 6.9 (4.3-11.1) K/mcL Hgb 11.6 L (12.9-16.9) g/dL Hct 34.3 L (37.5-50.1) % Plt Count 114 L (140-400) K/mcL Neutrophils # 5.2 (1.6-8.9) K/mcL BMP 01/17/18 01/18/18 08:52 08:48 Sodium 136 136 Potassium 3.7 3.5 Chloride 99 100 Carbon Dioxide 29 29 BUN 18 22 H Creatinine 0.96 0.91 Glucose 113 H 140 H Calcium 8.5 L 8.7 - ABG Interpretation ABG results: ABG ABG pH 7.33 pH Units (7.32-7.45) 01/15/18 17:35 ABG pCO2 49 mmHg (35-45) H 01/15/18 17:35 ABG pO2 95 mmHg (85-104) 01/15/18 17:35 ABG O2 Saturation 97 % (95-98) 01/15/18 17:35 PT/INR, D-dimer PT 15.6 Seconds (9.4-12.1) H 01/16/18 03:55 - VTE Documentation of Mechanical Device: Intermittent pneumatic compression device Consult Discharge Plan - Plan Instructions: Chest Pain (DC), Chronic Hypertension (DC) Additional Instructions: May not return to work, pending heart surgery, next week. Date of employment return undetermined at this time Referrals: Jona Moya MD [Primary Care Provider] - 01/24/18 10:30 am Dandy Schneider MD [Partnered Physician] - 02/14/18 1:00 pm Khris Gupta CNP [Advanced Practice Nurse] - (office will call patient at home with follow up appointment) <Gallo Gillis - Last Filed: 01/18/18 16:40> Hospitalist Progress Note - Encounter Date of Encounter: 01/18/18 - Exam Vitals: Temp Pulse Resp BP Pulse Ox 99.2 F 77 16 118/73 99 01/18/18 16:25 01/18/18 16:25 01/18/18 16:25 01/18/18 16:25 01/18/18 16:25 - Assessment and Plan (1) HTN (hypertension) Current Visit: No Status: Chronic (2) HLD (hyperlipidemia) Current Visit: No Status: Chronic (3) Morbid obesity Current Visit: Yes Status: Chronic (4) Coronary artery disease Current Visit: Yes Status: Chronic (5) S/P CABG x 5 Current Visit: Yes Status: Acute - Time Spent with Patient Total time spent is greater than 50% in coordination of care (as documented) at patient's floor/unit and/or counseling patient: Internal Medicine: Result - Labs CBC & Chem 7: 01/18/18 08:48 01/18/18 08:48 Labs: Short CBC 01/18/18 Range/Units 08:48 WBC 6.9 (4.3-11.1) K/mcL Hgb 11.6 L (12.9-16.9) g/dL Hct 34.3 L (37.5-50.1) % Plt Count 114 L (140-400) K/mcL Neutrophils # 5.2 (1.6-8.9) K/mcL BMP 01/18/18 08:48 Sodium 136 Potassium 3.5 Chloride 100 Carbon Dioxide 29 BUN 22 H Creatinine 0.91 Glucose 140 H Calcium 8.7 - ABG Interpretation ABG results: ABG ABG pH 7.33 pH Units (7.32-7.45) 01/15/18 17:35 ABG pCO2 49 mmHg (35-45) H 01/15/18 17:35 ABG pO2 95 mmHg (85-104) 01/15/18 17:35 ABG O2 Saturation 97 % (95-98) 01/15/18 17:35 PT/INR, D-dimer PT 15.6 Seconds (9.4-12.1) H 01/16/18 03:55 - Attending Attestation I performed an independent interview and exam of this patient. I agree with the findings, assessment, and plan of Lora Harding, medical student. Patient is no longer in atrial fibrillation. His fevers have resolved. Suspect this is postop fever, atelectasis. Clinically patient is doing well. Minimal discomfort at surgical site. Exam: Gen. no acute distress, awake alert and oriented 3, obese Skin warm and dry Lungs show diminished breath sounds at the bases Heart regular rate and rhythm Abdomen is soft nontender with normoactive bowel sounds Extremities show no significant edema <Bernie Harding M - Last Filed: 01/18/18 15:31> (3) Coronary artery disease Qualifiers: Coronary Disease-Associated Artery/Lesion type: bypass graft [place] vs. transplanted heart: [place] heart Associated angina: with unstable angina Qualified Code(s): I25.700 - Atherosclerosis of coronary artery bypass graft(s) , unspecified, with unstable angina pectoris (5) HLD (hyperlipidemia) Qualifiers: Hyperlipidemia type: pure hypercholesterolemia Qualified Code(s): E78.00 - Pure hypercholesterolemia, unspecified; E78.0 - Pure hypercholesterolemia (6) HTN (hypertension) Qualifiers: Hypertension type: essential hypertension Qualified Code(s): I10 - Essential (primary) hypertension <Gallo Gillis - Last Filed: 01/18/18 16:40> (1) HTN (hypertension) Qualifiers: Hypertension type: essential hypertension Qualified Code(s): I10 - Essential (primary) hypertension (2) HLD (hyperlipidemia) Qualifiers: Hyperlipidemia type: pure hypercholesterolemia Qualified Code(s): E78.00 - Pure hypercholesterolemia, unspecified; E78.0 - Pure hypercholesterolemia (4) Coronary artery disease Qualifiers: Coronary Disease-Associated Artery/Lesion type: bypass graft [place] vs. transplanted heart: [place] heart Associated angina: with unstable angina Qualified Code(s): I25.700 - Atherosclerosis of coronary artery bypass graft(s) , unspecified, with unstable angina pectoris
[2018-01-18] MEDS: *HR* OxyCODONE/APAP 5/325 TABLET PO PRN (22:08)
[2018-01-19] MEDS: Ketorolac 15 MG/ML VIAL IVP SCH ×4 (06:20→23:58)
[2018-01-19] MEDS: *HR* Heparin 5,000 UNIT/ML VIAL SQ SCH ×2 (06:21→17:16)
--- NOTE | 2018-01-19 08:41 | Internal Med Progress Note ---
Hospitalist Progress Note - Encounter Date of Encounter: 01/19/18 Time of Encounter: 08:39 - Subjective Interval History: Patient was seen and examined at bedside this morning. He states that he is feeling well this morning. Reports that he overdid his ambulation yesterday, and experienced considerable fatigue. Denies any pain around his incision site , chest pain, palpitations, or shortness of breath. He has no further complaints at this time. - Exam Vitals: Temp Pulse Resp BP Pulse Ox 98.1 F 68 16 129/80 97 01/19/18 07:13 01/19/18 07:13 01/19/18 07:43 01/19/18 07:43 01/19/18 07:43 Exam: General: Well nourished, well developed Head: Atraumatic, normocephalic Heart: RRR, no murmurs rubs or gallops Lungs: CTAB, no wheezes rales or rhonchi Abdomen: Soft, nontender Neuro: No focal deficits Extremities: Pulses 2/4 throughout. No edema Skin: Midline sternal incision is dressed; no redness, swelling, or discharge - Assessment and Plan (1) Unstable angina Current Visit: Yes Status: Acute Assessment and Plan: Initially presented with unstable angina on 01/08; troponins not elevated - Known history of CAD; previous OK in Nov 2016 requiring two stents - He showed no signs of acute ischemia on EKG - LHC demonstrated severe triple vessel disease - Was taken for CABG on 01/15 for 5 grafts were placed - Has been recovering well; cardiothoracic surgery following Plan: - Will continue ASA, statin, and beta annmarie (2) S/P CABG x 5 Current Visit: Yes Status: Acute Assessment and Plan: Cardiothoracic is planning for discharge on Sunday - POD #4 CABG x 5 - Midline sternotomy incision was covered with clean dressings, no sign of discharge soaked through the dressings - Chest tube incisions clean, dry, intact. - Continue current pain regimen - Activity as tolerated - encourage ambulation - Diet as tolerated (3) HTN (hypertension) Current Visit: No Status: Chronic Assessment and Plan: Patient has a history of HTN; currently controlled at 129/80 - Continue Norvasc 10mg - Continue Carvedilol 50 mg BID - Continue Losartan 50 mg (4) Morbid obesity Current Visit: Yes Status: Chronic Assessment and Plan: - BMI 43.4 - Patient has been counseled on lifestyle changes (5) HLD (hyperlipidemia) Current Visit: No Status: Chronic Assessment and Plan: - Crestor 40mg (6) DVT prophylaxis Current Visit: No Status: Acute Assessment and Plan: - 5000U SQ Heparin Q12H - Time Spent with Patient Total time spent is greater than 50% in coordination of care (as documented) at patient's floor/unit and/or counseling patient: Internal Medicine: Result - Labs CBC & Chem 7: 01/18/18 08:48 01/18/18 08:48 Labs: Short CBC 01/18/18 Range/Units 08:48 WBC 6.9 (4.3-11.1) K/mcL Hgb 11.6 L (12.9-16.9) g/dL Hct 34.3 L (37.5-50.1) % Plt Count 114 L (140-400) K/mcL Neutrophils # 5.2 (1.6-8.9) K/mcL BMP 01/18/18 08:48 Sodium 136 Potassium 3.5 Chloride 100 Carbon Dioxide 29 BUN 22 H Creatinine 0.91 Glucose 140 H Calcium 8.7 - ABG Interpretation ABG results: ABG ABG pH 7.33 pH Units (7.32-7.45) 01/15/18 17:35 ABG pCO2 49 mmHg (35-45) H 01/15/18 17:35 ABG pO2 95 mmHg (85-104) 01/15/18 17:35 ABG O2 Saturation 97 % (95-98) 01/15/18 17:35 PT/INR, D-dimer PT 15.6 Seconds (9.4-12.1) H 01/16/18 03:55 - VTE Documentation of Mechanical Device: Intermittent pneumatic compression device Consult Discharge Plan - Plan Instructions: Chest Pain (DC), Chronic Hypertension (DC) Additional Instructions: May not return to work, pending heart surgery, next week. Date of employment return undetermined at this time Referrals: Jona Moya MD [Primary Care Provider] - 01/24/18 10:30 am Dandy Schneider MD [Partnered Physician] - 02/14/18 1:00 pm Khris Gupta CNP [Advanced Practice Nurse] - (office will call patient at home with follow up appointment) (3) HTN (hypertension) Qualifiers: Hypertension type: essential hypertension Qualified Code(s): I10 - Essential (primary) hypertension (5) HLD (hyperlipidemia) Qualifiers: Hyperlipidemia type: pure hypercholesterolemia Qualified Code(s): E78.00 - Pure hypercholesterolemia, unspecified; E78.0 - Pure hypercholesterolemia
[2018-01-19] MEDS: Insulin LISPRO 300 UNITS/3 ML VIAL SQ SCH ×4 (08:51→20:10)
[2018-01-19] MEDS: *HR* Amiodarone 200 MG TABLET PO SCH (08:54)
[2018-01-19] MEDS: *HR* OxyCODONE/APAP 5/325 TABLET PO PRN ×4 (08:54→23:41)
[2018-01-19] MEDS: Aspirin Enteric Coated 81 MG Tablet PO SCH (08:55)
[2018-01-19] MEDS: Chlorhexidine Rinse 15 ML MOUTHWASH MM SCH ×2 (08:55→20:15)
[2018-01-19] MEDS: amLODIPine 5 MG TABLET PO SCH (08:55)
--- NOTE | 2018-01-19 10:07 | Cardiothoracic Progress Note ---
Date of Encounter: 01/19/18 Time of Encounter: 10:04 - Subjective Interval history: The patient was seen and examined. He is postoperative day #5 from a CABG 5 which went uneventfully by report He had an uneventful night and remained hemodynamically without any new episodes of atrial fibrillation per nursing. He notably did develop postoperative atrial fibrillation which is being treated effectively with amiodarone and beta blockers and has subsequently remained in normal sinus rhythm. Yesterday he ambulated and notably has had some increased discomfort. He had a bowel movement this morning. Notably his potassium is somewhat low. We discussed continued efforts with incentive spirometer, increased activity as tolerated and supplementing the patient's potassium. The patient stated he understood and agreed with this plan. Vital Signs, Last 4 Hours Temp Pulse Resp BP Pulse Ox 01/19/18 07:43 16 129/80 97 01/19/18 07:13 98.1 F 68 16 129/80 94 Oxgyen Flow Rate Oxygen Flow Rate (LPM) 0 Weight 01/17/18 01/18/18 01/19/18 23:59 23:59 23:59 Weight 137.2 kg - Physical Examination Sternum: Other (I, stable without evidence of crepitus) - Labs 01/18/18 08:48 01/18/18 08:48 Lab Results, Last 24 hours 01/18/18 01/18/18 08:48 08:48 WBC 6.9 Hgb 11.6 L Hct 34.3 L Plt Count 114 L Sodium 136 Potassium 3.5 Chloride 100 Carbon Dioxide 29 BUN 22 H Creatinine 0.91 Glucose 140 H Calcium 8.7 - VTE Documentation of Mechanical Device: Intermittent pneumatic compression device Consult Discharge Plan - Plan Instructions: Chest Pain (DC), Chronic Hypertension (DC) Additional Instructions: May not return to work, pending heart surgery, next week. Date of employment return undetermined at this time Referrals: Jona Moya MD [Primary Care Provider] - 01/24/18 10:30 am Dandy Schneider MD [Partnered Physician] - 02/14/18 1:00 pm Khris Gupta CNP [Advanced Practice Nurse] - (office will call patient at home with follow up appointment)
[2018-01-20] MEDS: *HR* OxyCODONE/APAP 5/325 TABLET PO PRN ×5 (03:53→21:57)
[2018-01-20] MEDS: *HR* Heparin 5,000 UNIT/ML VIAL SQ SCH ×2 (05:40→16:34)
[2018-01-20] MEDS: Ketorolac 15 MG/ML VIAL IVP SCH ×3 (05:41→16:23)
--- NOTE | 2018-01-20 08:01 | Internal Med Progress Note ---
<Luca Candelaria - Last Filed: 01/20/18 12:06> Hospitalist Progress Note - Encounter Date of Encounter: 01/20/18 Time of Encounter: 08:00 - Subjective Interval History: Patient was seen and examined at bedside this morning. He states that he is feeling well this morning. Denies any pain around his incision site, chest pain , palpitations, or shortness of breath. He has no further complaints at this time. - Exam Vitals: Temp Pulse Resp BP Pulse Ox 97.9 F 76 16 123/75 100 01/20/18 07:20 01/20/18 07:20 01/20/18 07:20 01/20/18 07:20 01/20/18 07:20 Exam: General: Well nourished, well developed Head: Atraumatic, normocephalic Heart: RRR, no murmurs rubs or gallops Lungs: CTAB, no wheezes rales or rhonchi Abdomen: Soft, nontender Neuro: No focal deficits Extremities: Pulses 2/4 throughout. No edema Skin: Midline sternal incision is dressed; no redness, swelling, or discharge - Assessment and Plan (1) Unstable angina Current Visit: Yes Status: Acute Assessment and Plan: Initially presented with unstable angina on 01/08; troponins not elevated - Known history of CAD; previous GA in Nov 2016 requiring two stents - He showed no signs of acute ischemia on EKG - LHC demonstrated severe triple vessel disease - Was taken for CABG on 01/15 for 5 grafts were placed - Has been recovering well; cardiothoracic surgery following Plan: - Will continue ASA, statin, and beta annmarie (2) S/P CABG x 5 Current Visit: Yes Status: Acute Assessment and Plan: Cardiothoracic is planning for discharge on Sunday - POD #5 CABG x 5 - Midline sternotomy incision was covered with clean dressings, no sign of discharge soaked through the dressings - Chest tube incisions clean, dry, intact - Continue current pain regimen - Activity as tolerated - encourage ambulation - Diet as tolerated (3) HTN (hypertension) Current Visit: No Status: Chronic Assessment and Plan: Patient has a history of HTN; currently controlled at 123/75 - Continue Norvasc 10mg - Continue Carvedilol 50 mg BID - Continue Losartan 50 mg (4) Morbid obesity Current Visit: Yes Status: Chronic Assessment and Plan: - BMI 43.4 - Patient has been counseled on lifestyle changes (5) HLD (hyperlipidemia) Current Visit: No Status: Chronic Assessment and Plan: Assessment and Plan: - Crestor 40mg (6) DVT prophylaxis Current Visit: No Status: Acute Assessment and Plan: - 5000U SQ Heparin Q12H DVT Prophylaxis: EPCDs Sq Heparin - Time Spent with Patient Total time spent is greater than 50% in coordination of care (as documented) at patient's floor/unit and/or counseling patient: less than 15 minutes Internal Medicine: Result - Labs CBC & Chem 7: 01/18/18 08:48 01/18/18 08:48 - ABG Interpretation ABG results: ABG ABG pH 7.33 pH Units (7.32-7.45) 01/15/18 17:35 ABG pCO2 49 mmHg (35-45) H 01/15/18 17:35 ABG pO2 95 mmHg (85-104) 01/15/18 17:35 ABG O2 Saturation 97 % (95-98) 01/15/18 17:35 PT/INR, D-dimer PT 15.6 Seconds (9.4-12.1) H 01/16/18 03:55 - VTE Documentation of Mechanical Device: Intermittent pneumatic compression device Consult Discharge Plan - Plan Instructions: Chest Pain (DC), Chronic Hypertension (DC) Additional Instructions: May not return to work, pending heart surgery, next week. Date of employment return undetermined at this time Referrals: Jona Moya MD [Primary Care Provider] - 01/24/18 10:30 am Dandy Schneider MD [Partnered Physician] - 02/14/18 1:00 pm Khris Gupta CNP [Advanced Practice Nurse] - (office will call patient at home with follow up appointment) <Gallo Gillis - Last Filed: 01/20/18 13:43> Hospitalist Progress Note - Encounter Date of Encounter: 01/20/18 - Exam Vitals: Temp Pulse Resp BP Pulse Ox 97.6 F 77 18 99/73 100 01/20/18 10:58 01/20/18 10:58 01/20/18 10:58 01/20/18 10:58 01/20/18 10:58 - Assessment and Plan (1) HTN (hypertension) Current Visit: No Status: Chronic (2) HLD (hyperlipidemia) Current Visit: No Status: Chronic (3) Morbid obesity Current Visit: Yes Status: Chronic (4) Coronary artery disease Current Visit: Yes Status: Chronic (5) S/P CABG x 5 Current Visit: Yes Status: Acute - Time Spent with Patient Total time spent is greater than 50% in coordination of care (as documented) at patient's floor/unit and/or counseling patient: Internal Medicine: Result - Labs CBC & Chem 7: 01/18/18 08:48 01/18/18 08:48 - ABG Interpretation ABG results: ABG ABG pH 7.33 pH Units (7.32-7.45) 01/15/18 17:35 ABG pCO2 49 mmHg (35-45) H 01/15/18 17:35 ABG pO2 95 mmHg (85-104) 01/15/18 17:35 ABG O2 Saturation 97 % (95-98) 01/15/18 17:35 PT/INR, D-dimer PT 15.6 Seconds (9.4-12.1) H 01/16/18 03:55 - Attending Attestation I performed an independent interview and exam of this patient. I agree with the findings, assessment, and plan of Dr. Candelaria, internal medicine resident. Patient is feeling much stronger today. Pain is controlled. Exam: Gen.: No acute distress, awake alert and oriented 3 Lungs show diminished breath sounds at the bases otherwise clear Regular rate and rhythm without murmur Abdomen soft nontender Extremities no significant edema Neurollogical exam nonfocal Anticipate discharge tomorrow if continues to do well, and if okay by cardiothoracic surgery <Luca Candelaria - Last Filed: 01/20/18 12:06> (3) HTN (hypertension) Qualifiers: Hypertension type: essential hypertension Qualified Code(s): I10 - Essential (primary) hypertension (5) HLD (hyperlipidemia) Qualifiers: Hyperlipidemia type: pure hypercholesterolemia Qualified Code(s): E78.00 - Pure hypercholesterolemia, unspecified; E78.0 - Pure hypercholesterolemia <Gallo Gillis - Last Filed: 01/20/18 13:43> (1) HTN (hypertension) Qualifiers: Hypertension type: essential hypertension Qualified Code(s): I10 - Essential (primary) hypertension (2) HLD (hyperlipidemia) Qualifiers: Hyperlipidemia type: pure hypercholesterolemia Qualified Code(s): E78.00 - Pure hypercholesterolemia, unspecified; E78.0 - Pure hypercholesterolemia (4) Coronary artery disease Qualifiers: Coronary Disease-Associated Artery/Lesion type: bypass graft [place] vs. transplanted heart: [place] heart Associated angina: with unstable angina Qualified Code(s): I25.700 - Atherosclerosis of coronary artery bypass graft(s) , unspecified, with unstable angina pectoris
[2018-01-20] MEDS: Aspirin Enteric Coated 81 MG Tablet PO SCH (08:09)
[2018-01-20] MEDS: *HR* Amiodarone 200 MG TABLET PO SCH (08:09)
[2018-01-20] MEDS: Chlorhexidine Rinse 15 ML MOUTHWASH MM SCH ×2 (08:09→21:02)
[2018-01-20] MEDS: amLODIPine 5 MG TABLET PO SCH (08:10)
[2018-01-20] MEDS: Insulin LISPRO 300 UNITS/3 ML VIAL SQ SCH ×4 (08:11→20:59)
--- NOTE | 2018-01-20 08:52 | Electrocardiograph Report ---
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
--- NOTE | 2018-01-20 10:18 | Cardiothoracic Progress Note ---
Date of Encounter: 01/20/18 Time of Encounter: 10:14 - Subjective Procedure(s) Performed: The patient was seen and examined. He is POD # 6 from a CABG 5 which went uneventfully by report He had an uneventful night and remained hemodynamically without any new episodes of atrial fibrillation per nursing. He notably did develop postoperative atrial fibrillation which is being treated effectively with amiodarone and beta blockers and has subsequently remained in normal sinus rhythm. Yesterday he again ambulated and is feeling better as he has resumed some narcotics for his discomfort which he had held the day before. Notably his potassium was low and he was started on po supplemental K+. His IJ was removed yesterday. We discussed continued efforts with incentive spirometer, increased activity as tolerated and making plans for d/c home tomorrow. The patient stated he understood and agreed with this plan. Interval history: The patient was seen and examined. He is postoperative day #5 from a CABG 5 which went uneventfully by report He had an uneventful night and remained hemodynamically without any new episodes of atrial fibrillation per nursing. He notably did develop postoperative atrial fibrillation which is being treated effectively with amiodarone and beta blockers and has subsequently remained in normal sinus rhythm. Yesterday he ambulated and notably has had some increased discomfort. He had a bowel movement this morning. Notably his potassium is somewhat low. We discussed continued efforts with incentive spirometer, increased activity as tolerated and supplementing the patient's potassium. The patient stated he understood and agreed with this plan. Vital Signs, Last 4 Hours Temp Pulse Resp BP Pulse Ox 01/20/18 07:20 97.9 F 76 16 123/75 100 Oxgyen Flow Rate Oxygen Flow Rate (LPM) 2 - Physical Examination Sternum: Stable - Labs 01/18/18 08:48 01/18/18 08:48 - VTE Documentation of Mechanical Device: Intermittent pneumatic compression device Consult Discharge Plan - Plan Instructions: Chest Pain (DC), Chronic Hypertension (DC) Additional Instructions: May not return to work, pending heart surgery, next week. Date of employment return undetermined at this time Referrals: Jona Moya MD [Primary Care Provider] - 01/24/18 10:30 am Dandy Schneider MD [Partnered Physician] - 02/14/18 1:00 pm Khris Gupta CNP [Advanced Practice Nurse] - (office will call patient at home with follow up appointment)
[2018-01-21] MEDS: *HR* OxyCODONE/APAP 5/325 TABLET PO PRN ×5 (04:07→22:21)
[2018-01-21] MEDS: *HR* Heparin 5,000 UNIT/ML VIAL SQ SCH ×2 (06:30→18:04)
--- NOTE | 2018-01-21 07:39 | Discharge Summary ---
Date of Encounter: 01/21/18 Time of Encounter: 07:37 - Discharge Diagnosis (1) NSTEMI (non-ST elevated myocardial infarction) Priority: Primary Status: Acute - Hospital Course Hospital course: Mr. Mcintyre is a 42 year old hypertensive man with hypercholesterolemia and known CAD. He spirits to myocardial infarction in November 2016 and underwent cardiac catheterization with PCI. Stents were placed in both the LCx and RCA. The patient did well initially; however, has redeveloped exertional substernal chest pain. He complained of severe, substernal, unrelenting substernal chest heaviness. Although his troponin I levels were negative, he was admitted for further cardiac workup given his presenting symptoms and cardiac risk profile. A transthoracic echocardiogram revealed an LVEF 60% with normal left ventricular chamber size and function. Moderate left ventricular diastolic dysfunction was noted. No valvular abnormalities were noted. Subsequent cardiac catheterization revealed severe 3 vessel CAD. In particular, the patient has a 70% proximal LAD lesion, an 80-90% mid LAD lesion, a 75% proximal D1 lesion, a 60% distal LCx lesion, a 70% distal OM 2 lesion, a 50% proximal RCA lesion, a 70-80% distal RCA bifurcation lesion, a 70-80% proximal PDA lesion , and a 7080% proximal RPLB lesion. He was on Brilinta for his previous stent placement and this was stopped for 5 days prior to CABG. The patient underwent CABG 5 on 01/15/2018. His postoperative course was uncomplicated; however, he did develop transient atrial fibrillation on POD #2. This was treated medically with amiodarone and increased beta zack dosage, and he converted to normal sinus rhythm. The patient was ambulating without complaints of substernal chest pain or shortness of breath. He was noted to have decreased oxygen saturations while sleeping at night. He was discharged home with oxygen 2 L/m via nasal cannula. He was undergoing a sleep study in 1- 2 months to evaluate for possible sleep apnea. He was discharged home on POD # 6. - Time Spent with Patient Total time spent providing and/or coordinating discharge services: - Discharge Medications Prescriptions: OxyCODONE/APAP 5/325 [Percocet 5/325 MG] 1 each PO Q4HR PRN 7 Days #30 tablet PRN Reason: Severe Pain Amiodarone [Cordarone] 400 mg PO DAILY #30 tablet Home Medications: Amlodipine Besylate 10 mg PO DAILY 12/01/16 [History] Aspirin Enteric Coated [Aspirin EC] 81 mg PO DAILY #30 12/03/16 [Rx] Carvedilol [Coreg] 12.5 mg PO BIDWM #120 tab 12/03/16 [Rx] Nitroglycerin 0.4 mg SL Q5MIN PRN #30 12/03/16 [Rx] Rosuvastatin [Crestor] 40 mg PO HS #30 tab 12/03/16 [Rx] Ticagrelor [Brilinta] 90 mg PO BID #60 tab 12/03/16 [Rx] Losartan Potassium [Cozaar] 50 mg PO DAILY 06/27/17 [History] Amiodarone [Cordarone] 400 mg PO DAILY #30 tablet 01/21/18 [Rx] OxyCODONE/APAP 5/325 [Percocet 5/325 MG] 1 each PO Q4HR PRN 7 Days #30 tablet [Rx] Allergies/Adverse Reactions: 3 Allergy/AdvReac Type Severity Reaction Status Date / Time No Known Allergies Allergy Verified 12/19/16 14:10 Date of admission: 01/11/18 16:23 Primary care physician: Jona Moya MD Consults: 01/15/18 13:25 Consult to Cardiac Rehabilitation-Phase1 [CONS] Routine Comment: Reason for Consult: Post open heart Call Completed: Yes Procedure(s) Performed: 1. Cardiac catheterization performed 01/09/2018. 2. CABG5 (HATCH to LAD, sequential SVG to D1 then distal LCx, sequential SVG to PDA then PLVB) performed 01/15/2018. 3. Endoscopic vein harvesting, greater saphenous vein from right lower extremity performed 01/15/2018. Discharging clinician: Dandy Schneider Anticipated date of discharge: 01/21/18 Physical Examination Vital Signs, Last 4 Hours Temp Pulse Resp BP Pulse Ox 01/21/18 04:07 66 01/21/18 03:59 15 98 01/21/18 03:49 97.8 F 70 16 133/86 99 General: Conversant, No Apparent Distress HEENT: Atraumatic, Normocephaly, Trachea midline Neck: No JVD, Normal carotid pulses Cardiac: Reg Rate and Rhythm, Normal S1 and S2, No Murmur Lungs: Normal Breath Sounds, No Wheeze, Rales, Rhonchi Neuro: Alert and responsive, No focal deficits noted Vascular: Normal capillary refill Abdomen: Soft, Non-tender Extremities: No Clubbing, No Cyanosis, No Edema, Normal Pulses - Patient Status Disposition: Home, Self-Care Condition: Good Functional capacity at discharge: independent ambulation Overall status at discharge: patient is progressing back to baseline - Discharge Instructions Instructions: Chest Pain (DC), Chronic Hypertension (DC) Follow Up With: Jona Moya MD [Primary Care Provider] - 01/24/18 10:30 am Dandy Schneider MD [Partnered Physician] - 02/14/18 1:00 pm Khris Gupta CNP [Advanced Practice Nurse] - (office will call patient at home with follow up appointment) Forms: Inpatient Work/School Release - Diet and Activity Activity: sternal precautions, no driving for four weeks, no lifting greater than 10 pounds for eight weeks, wear oxygen at night Diet: low fat, low cholesterol [facility] Aspirin Cont/Prescribed at DC: Yes Beta Zack Cont/Prescribed at DC: Yes Statin Cont/Prescribed at DC: Yes NIK/ARB Cont/Prescribed at DC: Yes - VTE Documentation of Mechanical Device: Intermittent pneumatic compression device
[2018-01-21] MEDS: amLODIPine 5 MG TABLET PO SCH (07:46)
[2018-01-21] MEDS: Aspirin Enteric Coated 81 MG Tablet PO SCH (07:46)
[2018-01-21] MEDS: *HR* Amiodarone 200 MG TABLET PO SCH (07:46)
[2018-01-21] MEDS: Chlorhexidine Rinse 15 ML MOUTHWASH MM SCH ×2 (07:46→20:51)
[2018-01-21] MEDS: Insulin LISPRO 300 UNITS/3 ML VIAL SQ SCH ×4 (07:51→20:51)
--- NOTE | 2018-01-21 09:08 | Internal Med Progress Note ---
Hospitalist Progress Note - Encounter Date of Encounter: 01/21/18 Time of Encounter: 09:08 - Subjective Interval History: Mr. Mcintyre is a 42M with PMH of CAD with OK in november of 2016, HLD, HTN, GERD, and nephrolithiasis. He originally presented to the EKG on 01/08 complaining of chest pain at rest, and was admitted for further evaluation of this chest pain despite negative troponins. He underwent cardiac catheterization on 01/09 which revealed severe triple vessel disease. Cardiothoracic surgery was then consulted at that time and patient underwent CABG 5 on 01/15. Today the patient is postop day 2. Patient was seen and examined at bedside. Chest tubes were removed earlier this morning. Patient has no new or acute complaints. States his pain is adequately controlled with medications. Denies any shortness of breath, headache, nausea, vomiting, numbness, or tingling. States he has no difficulty urinating and is passing flatus. Denies having much of an appetite. - Exam Vitals: Temp Pulse Resp BP Pulse Ox 97.8 F 72 15 143/92 98 01/21/18 03:49 01/21/18 07:40 01/21/18 07:44 01/21/18 07:40 01/21/18 07:44 - Assessment and Plan (1) HTN (hypertension) Current Visit: No Status: Chronic (2) HLD (hyperlipidemia) Current Visit: No Status: Chronic (3) S/P CABG x 5 Current Visit: Yes Status: Acute (4) Coronary artery disease Current Visit: Yes Status: Chronic (5) Morbid obesity Current Visit: Yes Status: Chronic - Time Spent with Patient Total time spent is greater than 50% in coordination of care (as documented) at patient's floor/unit and/or counseling patient: Internal Medicine: Result - Labs CBC & Chem 7: 01/18/18 08:48 01/18/18 08:48 - ABG Interpretation ABG results: ABG ABG pH 7.33 pH Units (7.32-7.45) 01/15/18 17:35 ABG pCO2 49 mmHg (35-45) H 01/15/18 17:35 ABG pO2 95 mmHg (85-104) 01/15/18 17:35 ABG O2 Saturation 97 % (95-98) 01/15/18 17:35 PT/INR, D-dimer PT 15.6 Seconds (9.4-12.1) H 01/16/18 03:55 - VTE Documentation of Mechanical Device: Intermittent pneumatic compression device Consult Discharge Plan - Plan Instructions: Chest Pain (DC), Chronic Hypertension (DC) Additional Instructions: May not return to work, pending heart surgery, next week. Date of employment return undetermined at this time Referrals: Charan Mijares MD [Partnered Physician] - 02/25/18 2:00 pm Jona Moya MD [Primary Care Provider] - 01/24/18 10:30 am Dandy Schneider MD [Partnered Physician] - 02/14/18 1:00 pm Prescriptions: OxyCODONE/APAP 5/325 [Percocet 5/325 MG] 1 each PO Q4HR PRN 7 Days #30 tablet PRN Reason: Severe Pain Amiodarone [Cordarone] 400 mg PO DAILY #30 tablet (1) HTN (hypertension) Qualifiers: Hypertension type: essential hypertension Qualified Code(s): I10 - Essential (primary) hypertension (2) HLD (hyperlipidemia) Qualifiers: Hyperlipidemia type: pure hypercholesterolemia Qualified Code(s): E78.00 - Pure hypercholesterolemia, unspecified; E78.0 - Pure hypercholesterolemia (4) Coronary artery disease Qualifiers: Coronary Disease-Associated Artery/Lesion type: bypass graft [place] vs. transplanted heart: [place] heart Associated angina: with unstable angina Qualified Code(s): I25.700 - Atherosclerosis of coronary artery bypass graft(s) , unspecified, with unstable angina pectoris
--- NOTE | 2018-01-21 09:23 | Discharge Summary ---
<Gallo Gillis - Last Filed: 01/21/18 12:48> Date of Encounter: 01/21/18 - Discharge Diagnosis (1) HTN (hypertension) Status: Chronic Qualifiers: Hypertension type: essential hypertension Qualified Code(s): I10 - Essential (primary) hypertension (2) HLD (hyperlipidemia) Status: Chronic Qualifiers: Hyperlipidemia type: pure hypercholesterolemia Qualified Code(s): E78.00 - Pure hypercholesterolemia, unspecified; E78.0 - Pure hypercholesterolemia (3) Morbid obesity Status: Chronic (4) Coronary artery disease Status: Chronic Qualifiers: Coronary Disease-Associated Artery/Lesion type: bypass graft [place] vs. transplanted heart: [place] heart Associated angina: with unstable angina Qualified Code(s): I25.700 - Atherosclerosis of coronary artery bypass graft(s) , unspecified, with unstable angina pectoris (5) S/P CABG x 5 Status: Acute Hospital course: Mr. Mcintyre is a 42 year old male - Time Spent with Patient Total time spent providing and/or coordinating discharge services: - Discharge Medications Prescriptions: OxyCODONE/APAP 5/325 [Percocet 5/325 MG] 1 each PO Q4HR PRN 7 Days #30 tablet PRN Reason: Severe Pain Amiodarone [Cordarone] 400 mg PO DAILY #30 tablet Carvedilol [Coreg] 50 mg PO BIDWM 30 Days #60 tablet Home Medications: Amlodipine Besylate 10 mg PO DAILY 12/01/16 [History] Aspirin Enteric Coated [Aspirin EC] 81 mg PO DAILY #30 12/03/16 [Rx] Nitroglycerin 0.4 mg SL Q5MIN PRN #30 12/03/16 [Rx] Rosuvastatin [Crestor] 40 mg PO HS #30 tab 12/03/16 [Rx] Ticagrelor [Brilinta] 90 mg PO BID #60 tab 12/03/16 [Rx] Losartan Potassium [Cozaar] 50 mg PO DAILY 06/27/17 [History] Amiodarone [Cordarone] 400 mg PO DAILY #30 tablet 01/21/18 [Rx] Carvedilol [Coreg] 50 mg PO BIDWM 30 Days #60 tablet 01/21/18 [Rx] OxyCODONE/APAP 5/325 [Percocet 5/325 MG] 1 each PO Q4HR PRN 7 Days #30 tablet [Rx] Allergies/Adverse Reactions: 3 Allergy/AdvReac Type Severity Reaction Status Date / Time No Known Allergies Allergy Verified 12/19/16 14:10 Date of admission: 01/11/18 16:23 Primary care physician: Jona Moya MD Consults: 01/15/18 13:25 Consult to Cardiac Rehabilitation-Phase1 [CONS] Routine Comment: Reason for Consult: Post open heart Call Completed: Yes - Constitutional Vitals: Temp Pulse Resp BP Pulse Ox 97.8 F 72 15 143/92 98 01/21/18 03:49 01/21/18 07:40 01/21/18 07:44 01/21/18 07:40 01/21/18 07:44 - Patient Status Disposition: Home, Self-Care Condition: Fair - Ambulatory Orders Ambulatory Orders: Sleep Study Time Frame: 1 Month, Facility: [facility], Location: [facility] - Discharge Instructions Instructions: Oxycodone/Acetaminophen (By mouth), Amiodarone (By mouth), Coronary Artery Bypass Graft (DC), Chest Pain (DC), Chronic Hypertension (DC), Sternal Precautions (GEN) Follow Up With: Charan Mijares MD [Partnered Physician] - 02/25/18 2:00 pm Jona Moya MD [Primary Care Provider] - 01/24/18 10:30 am Dandy Schneider MD [Partnered Physician] - 02/14/18 1:00 pm Forms: Inpatient Work/School Release Additional Instructions: May not return to work, pending heart surgery, next week. Date of employment return undetermined at this time - Attending Attestation I performed an independent interview and exam of this patient. I agree with the findings, assessment, and plan of Dr. Jansen, internal medicine international project engineer. This is a pleasant 42-year-old male who is status post CABG. Postoperative course complicated by atrial fibrillation which is now resolved. He is doing well. We are trying to arrange for home O2 to use at night. He otherwise is hemodynamically stable and stable for discharge once arranged. Gen NAD, AAOx3 Neck supple Lung dimin bs bases Ht RRR Abd soft +BS, NT Ext no edema <Felipe Jansen - Last Filed: 01/21/18 15:14> - NOTES TO OUTPATIENT PROVIDER Notes to Outpatient Provider: Mr. Mcintyre originally presented to the ER on complaining of chest pain at rest, and was admitted for further evaluation of this chest pain despite negative troponins. He underwent cardiac catheterization on 01/09 which revealed severe triple vessel disease. Cardiothoracic surgery was then consulted at that time and patient underwent CABG 5 on 01/15. Pt went into atrial fibrillation post-op but has been in normal sinus rhythm since 01/18. He was started on Amiodarone 400mg qd and his Coreg was increased to 50mg BID. During the night of 01/20, his SpO2 dropped noticibly into the mid 70s. Sleep study recommended and ordered. Date of Encounter: 01/21/18 Time of Encounter: 09:23 - Discharge Diagnosis (1) HTN (hypertension) Priority: Secondary Status: Chronic Assessment and Plan: Hx of HTN Controlled at 143/92 Elevations likely 2/2 pain Continue Norvasc 10mg Continue Carvedilol 50mg BID Continue Losartan 50mg Qualifiers: Hypertension type: essential hypertension Qualified Code(s): I10 - Essential (primary) hypertension (2) HLD (hyperlipidemia) Priority: Secondary Status: Chronic Assessment and Plan: Hx of HLD Continue Crestor 40mg Qualifiers: Hyperlipidemia type: pure hypercholesterolemia Qualified Code(s): E78.00 - Pure hypercholesterolemia, unspecified; E78.0 - Pure hypercholesterolemia (3) S/P CABG x 5 Priority: Primary Status: Acute Assessment and Plan: POD#6 CABGx5 Midline sternotomy incision clean, dry, and intact with dressing in place Chest tubes and pacer wires removed by CT surgery without difficulty Pt states pain is adequately controlled with medication (4) Coronary artery disease Priority: Secondary Status: Chronic Assessment and Plan: As above Continue ASA, statin, and beta-annmarie Qualifiers: Coronary Disease-Associated Artery/Lesion type: bypass graft [place] vs. transplanted heart: [place] heart Associated angina: with unstable angina Qualified Code(s): I25.700 - Atherosclerosis of coronary artery bypass graft(s) , unspecified, with unstable angina pectoris (5) Morbid obesity Priority: Secondary Status: Chronic Assessment and Plan: chronic issue (6) Suspected sleep apnea Priority: Secondary Status: Acute Assessment and Plan: Risk factors include: male gender and chronic obesity SpO2 last night reportedly dropped into 70s Order sleep study to evaluate need for O2/CPAP/BIPAP at night Hospital course: Mr. Mcintyre is a 42 year old male Discharge discussed with: patient, nurse, social work, budget consultant - Time Spent with Patient Total time spent providing and/or coordinating discharge services: Date of admission: 01/11/18 16:23 Primary care physician: Jona Moya MD Consults: 01/15/18 13:25 Consult to Cardiac Rehabilitation-Phase1 [CONS] Routine Comment: Reason for Consult: Post open heart Call Completed: Yes Discharging clinician: Felipe Jansen - Constitutional Vitals: Temp Pulse Resp BP Pulse Ox 97.8 F 72 15 143/92 98 01/21/18 03:49 01/21/18 07:40 01/21/18 07:44 01/21/18 07:40 01/21/18 07:44 General appearance: Present: A&O X 3, pleasant Exam: General: Well nourished, well developed obese male. no acute distress. Head: Atraumatic, normocephalic Neck: supple, trachea midline, no lymphadenopathy Heart: RRR, no murmurs rubs or gallops Lungs: CTAB, no wheezes rales or rhonchi Abdomen: Soft, nontender, nondistended Neuro: A&Ox3. No focal deficits. No speech difficulty or abnormality. Extremities: Pulses 2/4 throughout. No edema Skin: Midline sternal incision is dressed; no redness, swelling, or discharge - Patient Status Functional capacity at discharge: independent ambulation Overall status at discharge: patient is progressing back to baseline - Diet and Activity Activity: increase activity as tolerated, resume usual activities as tolerated Diet: low fat, low cholesterol, low salt diet - VTE Documentation of Mechanical Device: Intermittent pneumatic compression device
[2018-01-22] MEDS: *HR* OxyCODONE/APAP 5/325 TABLET PO PRN ×2 (05:03→11:09)
[2018-01-22] MEDS: *HR* Heparin 5,000 UNIT/ML VIAL SQ SCH (05:03)
--- NOTE | 2018-01-22 07:42 | Cardiothoracic Progress Note ---
Date of Encounter: 01/22/18 Time of Encounter: 07:41 - Assessment and plan (1) NSTEMI (non-ST elevated myocardial infarction) Current Visit: No Status: Acute The patient remained hemodynamically stable overnight. He was discharged yesterday; however, the [employer] stated that he would require an overnight sleep evaluation to determine whether he qualified for supplemental oxygen. This is been completed, but the results are unavailable at this time. If the patient qualifies he will be discharged home with oxygen today. The assessment and plan as outlined above was discussed with the patient and/or family members who expressed understanding and agreement. All questions were answered. - Subjective Procedure(s) Performed: POD #7 S/P CABG5 Interval history: The patient remained hemodynamic stable overnight. He has no complaints. Vital Signs, Last 4 Hours Temp Pulse Resp BP Pulse Ox 01/22/18 04:34 97.9 F 73 18 125/78 98 Oxgyen Flow Rate Oxygen Flow Rate (LPM) 0 Clinical Data, last 8 Hours Output, Urine Amount 300 Weight 01/20/18 01/21/18 01/22/18 23:59 23:59 23:59 Weight 134.2 kg - Physical Examination General: Conversant, No Apparent Distress Neck: No JVD, Normal carotid pulses Cardiac: Reg Rate and Rhythm, Normal S1 and S2, No Murmur Incision: No signs of infection, Dry/intact dressing Sternum: Stable Lungs: Normal Breath Sounds, No Wheeze, Rales, Rhonchi Neuro: Alert and responsive, No focal deficits noted Vascular: Normal capillary refill Extremities: No Clubbing, No Cyanosis, No Edema, Normal Pulses - Labs 01/18/18 08:48 01/18/18 08:48 - VTE Documentation of Mechanical Device: Intermittent pneumatic compression device Consult Discharge Plan - Plan Instructions: Oxycodone/Acetaminophen (By mouth), Amiodarone (By mouth), Coronary Artery Bypass Graft (DC), Chest Pain (DC), Chronic Hypertension (DC), Sternal Precautions (GEN) Additional Instructions: May not return to work, pending heart surgery, next week. Date of employment return undetermined at this time Referrals: Charan Mijares MD [Partnered Physician] - 02/25/18 2:00 pm Jona Moya MD [Primary Care Provider] - 01/24/18 10:30 am Dandy Schneider MD [Partnered Physician] - 02/14/18 1:00 pm Prescriptions: OxyCODONE/APAP 5/325 [Percocet 5/325 MG] 1 each PO Q4HR PRN 7 Days #30 tablet PRN Reason: Severe Pain Amiodarone [Cordarone] 400 mg PO DAILY #30 tablet Carvedilol [Coreg] 50 mg PO BIDWM 30 Days #60 tablet
[2018-01-22] MEDS: Insulin LISPRO 300 UNITS/3 ML VIAL SQ SCH (07:44)
--- NOTE | 2018-01-22 07:44 | Internal Med Progress Note ---
Addendum entered and electronically signed by Felipe Jansen 01/22/18 10:56: Additional diagnosis for noctural supplemental O2 - Hypoxemia (R09.02) Diagnosis reviewed with pt. Answered pt questions. Advised pt to wear supplemental O2 at night and during naps. Original Note: <InderjitОльгаFelipe A - Last Filed: 01/22/18 08:02> Hospitalist Progress Note - Encounter Date of Encounter: 01/22/18 Time of Encounter: 08:03 - Subjective Interval History: Mr. Mcintyre is a 42M with PMH of CAD with [place] in Nov 2016, HLD, HTN, GERD and nephrolithiasis. He originally presented to the ER on 01/08 complaining of chest pain at rest, and was admitted for further evaluation of this chest pain despite negative troponins. He underwent cardiac catheterization on 01/09 which revealed severe triple vessel disease. Cardiothoracic surgery was then consulted at that time and patient underwent CABG 5 on 01/15. Pt went into atrial fibrillation post-op but has been in normal sinus rhythm since 01/18. He was started on Amiodarone 400mg qd and his Coreg was increased to 50mg BID. During the night of 01/20, his SpO2 dropped noticibly into the mid 70s. Sleep study recommended and ordered. Pt had difficulty deciding yesterday if he wanted to have the sleep study while still inpatient, or pursue it in the outpatient setting after discharge. He ultimately decided to stay in the hospital another night to be evaluated. Pt seen and examined at bedside. No acute events overnight. Pt has no new or acute complaints. Still awaiting sleep study results from RT. Denies any fever, chills, chest pain, SOB, coughing, abdominal pain, nausea, vomiting, headache, numbness, or tingling. States his pain is well controlled with medications. No urinary symptoms. Having BMs and passing flatus normally. - Exam Vitals: Temp Pulse Resp BP Pulse Ox 97.9 F 73 18 125/78 98 01/22/18 04:34 01/22/18 04:34 01/22/18 04:34 01/22/18 04:34 01/22/18 04:34 Exam: General: Well nourished, well developed obese male. no acute distress. Head: Atraumatic, normocephalic Neck: supple, trachea midline, no lymphadenopathy Heart: RRR, no murmurs rubs or gallops Lungs: CTAB, no wheezes rales or rhonchi. non-labored breathing Abdomen: Soft, nontender, nondistended Neuro: A&Ox3. No focal deficits. No speech difficulty or abnormality. Extremities: Pulses 2/4 throughout. No edema Skin: Midline sternal incision clean, dry, and intact. No erythema or discharge. - Assessment and Plan (1) HTN (hypertension) Status: Chronic Assessment and Plan: Hx of HTN Controlled at 143/87, was 111/64 while sleeping Elevations likely 2/2 pain Continue Norvasc 10mg Continue Carvedilol 50mg BID Continue Losartan 50mg (2) HLD (hyperlipidemia) Status: Chronic Assessment and Plan: Hx of HLD Continue Crestor 40mg (3) S/P CABG x 5 Status: Acute Assessment and Plan: POD#7 CABGx5 Midline sternotomy incision clean, dry, and intact Chest tubes and pacer wires removed by CT surgery without difficulty Pt states pain is adequately controlled with medication (4) Coronary artery disease Status: Chronic Assessment and Plan: As above Continue ASA, statin, and beta-annmarie (5) Morbid obesity Status: Chronic Assessment and Plan: chronic issue discussed lifestyle modifications (6) Suspected sleep apnea Status: Acute Assessment and Plan: Risk factors include: male gender and chronic obesity SpO2 last night reportedly dropped into 70s Order sleep study to evaluate need for O2/CPAP/BIPAP at night. Awaiting results from RT DVT Prophylaxis: EPCDs Sq Heparin - Time Spent with Patient Total time spent is greater than 50% in coordination of care (as documented) at patient's floor/unit and/or counseling patient: Internal Medicine: Result - Labs CBC & Chem 7: 01/18/18 08:48 01/18/18 08:48 - ABG Interpretation ABG results: ABG ABG pH 7.33 pH Units (7.32-7.45) 01/15/18 17:35 ABG pCO2 49 mmHg (35-45) H 01/15/18 17:35 ABG pO2 95 mmHg (85-104) 01/15/18 17:35 ABG O2 Saturation 97 % (95-98) 01/15/18 17:35 PT/INR, D-dimer PT 15.6 Seconds (9.4-12.1) H 01/16/18 03:55 - VTE Documentation of Mechanical Device: Intermittent pneumatic compression device Consult Discharge Plan - Plan Instructions: Oxycodone/Acetaminophen (By mouth), Amiodarone (By mouth), Coronary Artery Bypass Graft (DC), Chest Pain (DC), Chronic Hypertension (DC), Sternal Precautions (GEN) Additional Instructions: May not return to work, pending heart surgery, next week. Date of employment return undetermined at this time Referrals: Charan Mijares MD [Partnered Physician] - 02/25/18 2:00 pm Jona Moya MD [Primary Care Provider] - 01/24/18 10:30 am Dandy Schneider MD [Partnered Physician] - 02/14/18 1:00 pm Prescriptions: OxyCODONE/APAP 5/325 [Percocet 5/325 MG] 1 each PO Q4HR PRN 7 Days #30 tablet PRN Reason: Severe Pain Amiodarone [Cordarone] 400 mg PO DAILY #30 tablet amLODIPine [Norvasc] 10 mg PO DAILY 90 Days #90 tablet Carvedilol [Coreg] 50 mg PO BIDWM 30 Days #60 tablet <Thallapaneni,Rambabu - Last Filed: 01/22/18 18:08> Hospitalist Progress Note - Encounter Date of Encounter: 01/22/18 - Exam Vitals: Temp Pulse Resp BP Pulse Ox 97.9 F 74 18 143/87 99 01/22/18 07:38 01/22/18 07:38 01/22/18 07:38 01/22/18 07:38 01/22/18 07:38 - Assessment and Plan (1) HTN (hypertension) Status: Chronic (2) HLD (hyperlipidemia) Status: Chronic (3) Morbid obesity Status: Chronic (4) Coronary artery disease Status: Chronic (5) S/P CABG x 5 Status: Acute (6) Suspected sleep apnea Status: Acute - Time Spent with Patient Total time spent is greater than 50% in coordination of care (as documented) at patient's floor/unit and/or counseling patient: Internal Medicine: Result - Labs CBC & Chem 7: 01/18/18 08:48 01/18/18 08:48 - ABG Interpretation ABG results: ABG ABG pH 7.33 pH Units (7.32-7.45) 01/15/18 17:35 ABG pCO2 49 mmHg (35-45) H 01/15/18 17:35 ABG pO2 95 mmHg (85-104) 01/15/18 17:35 ABG O2 Saturation 97 % (95-98) 01/15/18 17:35 PT/INR, D-dimer PT 15.6 Seconds (9.4-12.1) H 01/16/18 03:55 - Attending Attestation I examined this patient and my medical decision-making was reviewed with the Resident Physician Dr. Jansen. I agree with the documented findings, disposition and treatment plan as described except to the extent set forth below. Ms. Mcintyre with known past medical history of hypertension, hyperlipidemia, CAD admitted here for admitted here for chest pain patient went for left heart Which showed severe triple vessel disease. Patient underwent CABG 5 on 2017. He did develop Afib post operatively, which improved with Amidoarone. Pt is medically stable to dc home today. He had sleep study done last night and arranging for home BiPAP. He denied any active CP today. Breathing comfortably on RA. <Felipe Jansen - Last Filed: 01/22/18 08:02> (1) HTN (hypertension) Qualifiers: Hypertension type: essential hypertension Qualified Code(s): I10 - Essential (primary) hypertension (2) HLD (hyperlipidemia) Qualifiers: Hyperlipidemia type: pure hypercholesterolemia Qualified Code(s): E78.00 - Pure hypercholesterolemia, unspecified; E78.0 - Pure hypercholesterolemia (4) Coronary artery disease Qualifiers: Coronary Disease-Associated Artery/Lesion type: bypass graft [place] vs. transplanted heart: [place] heart Associated angina: with unstable angina Qualified Code(s): I25.700 - Atherosclerosis of coronary artery bypass graft(s) , unspecified, with unstable angina pectoris <Yogesh Estrada - Last Filed: 01/22/18 18:08> (1) HTN (hypertension) Qualifiers: Hypertension type: essential hypertension Qualified Code(s): I10 - Essential (primary) hypertension (2) HLD (hyperlipidemia) Qualifiers: Hyperlipidemia type: pure hypercholesterolemia Qualified Code(s): E78.00 - Pure hypercholesterolemia, unspecified; E78.0 - Pure hypercholesterolemia (4) Coronary artery disease Qualifiers: Coronary Disease-Associated Artery/Lesion type: bypass graft [place] vs. transplanted heart: [place] heart Associated angina: with unstable angina Qualified Code(s): I25.700 - Atherosclerosis of coronary artery bypass graft(s) , unspecified, with unstable angina pectoris
[2018-01-22 07:45] VITALS: BP 143/87
[2018-01-22] MEDS: amLODIPine 5 MG TABLET PO SCH (08:29)
[2018-01-22] MEDS: *HR* Amiodarone 200 MG TABLET PO SCH (08:29)
[2018-01-22] MEDS: Aspirin Enteric Coated 81 MG Tablet PO SCH (08:30)
[2018-01-22] MEDS: Chlorhexidine Rinse 15 ML MOUTHWASH MM SCH (10:09)
== END 2018-01-22 12:23 | disposition home or self-care (01) | DRG 234 ==
LOC: 3BNU 16:57 → EMEROOARM 16:57 → 3BNU 22:11 → SUATTDRO 01-11 16:23 → 3BNU 01-15 10:38 → ICNU 01-15 11:52 → 2NNU 01-16 13:50
PROVIDERS: ADMIT Internal Medicine Cardiovascular Disease; ATTEND Family Medicine